=== PATIENT | male | born 1935 | race Asian ===

== ENCOUNTER 2016-11-28 13:59 | Inpatient (IN) | payer OTHER, MEDICARE ==
--- NOTE | 2016-11-28 15:29 | CON.CARD ---
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 He reports medication and diet compliance. - History Source History Provided By: Patient Limitations to Obtaining History: No Limitations - Past Medical History Cardio/Vascular: Yes: AFIB, CHF, HTN - Alcohol/Substance Use Hx Alcohol Use: No - Smoking History Smoking history: Never smoked Have you smoked in the past 12 months: No If you are a former smoker, when did you quit?: 40YRS Home Medications - Allergies Allergies/Adverse Reactions: Allergies Allergy/AdvReac Type Severity Reaction Status Date / Time No Known Allergies Allergy Verified 11/28/16 14:07 - Home Medications Home Medications: Ambulatory Orders Metformin HCl [Metformin HCl ER] 500 mg PO DAILY 11/07/11 Aspirin 81 mg PO 12/12/12 Atorvastatin Calcium [Lipitor] 10 mg PO DAILY 12/12/12 Metoprolol Tartrate [Lopressor -] 50 mg PO BID 12/12/12 Polyethylene Glycol 3350 [Miralax 255 gm Btl] 17 gm PO DAILY 12/19/12 Ranitidine [Zantac -] 150 mg PO DAILY #0 tablet 12/20/12 Review of Systems - Review of Systems Cardiovascular: reports: Edema, Shortness of Breath Respiratory: reports: Orthopnea Vital Signs: Vital Signs Temperature 97.5 F L 11/28/16 14:04 Pulse Rate 73 11/28/16 14:04 Respiratory Rate 18 11/28/16 14:04 Blood Pressure 120/80 11/28/16 14:04 O2 Sat by Pulse Oximetry (%) 98 11/28/16 14:04 Constitutional: Yes: No Distress, Calm Neck: Yes: Supple Respiratory: Yes: Regular, Diminished Gastrointestinal: Yes: Normal Bowel Sounds, Soft Cardiovascular: Yes: Pulse Irregular JVD: No Carotid Bruit: No Heart Sounds: Yes: S1, S2 Murmur: Yes: Systolic Murmur, Grade 2 Edema: Yes Edema: LLE: 2+, RLE: 2+ - Other Data Afib with nonspec T wave changes Echo: Report Reviewed Ejection Fraction %: LVEF > or = 40 % Imaging - Results Chest X-ray: Pending Problem List - Problems (1) Acute on chronic diastolic (congestive) heart failure Code(s): I50.33 - ACUTE ON CHRONIC DIASTOLIC (CONGESTIVE) HEART FAILURE (2) Persistent atrial fibrillation Code(s): I48.1 - PERSISTENT ATRIAL FIBRILLATION (3) Hypertensive cardiomyopathy Code(s): I11.9 - HYPERTENSIVE HEART DISEASE WITHOUT HEART FAILURE I43 - CARDIOMYOPATHY IN DISEASES CLASSIFIED ELSEWHERE Qualifiers: Heart failure presence: with heart failure Qualified Code(s): I11.0 - Hypertensive heart disease with heart failure; I43 - Cardiomyopathy in diseases classified elsewhere (4) Hyperlipidemia Code(s): E78.5 - HYPERLIPIDEMIA, UNSPECIFIED Qualifiers: Hyperlipidemia type: pure hypercholesterolemia Qualified Code(s): E78.00 - Pure hypercholesterolemia, unspecified; E78.0 - Pure hypercholesterolemia (5) Chronic kidney disease (CKD) Code(s): N18.9 - CHRONIC KIDNEY DISEASE, UNSPECIFIED (6) Moderate to severe mitral regurgitation Code(s): I34.0 - NONRHEUMATIC MITRAL (VALVE) INSUFFICIENCY (7) Moderate aortic regurgitation Code(s): I35.1 - NONRHEUMATIC AORTIC (VALVE) INSUFFICIENCY Assessment/Plan 06/04/2015 Mod cLVH with preserved LV fxn, mod LAE, mod-severe MR, AR 1. Acute on chronic diastolic failure with underlying mod-severe MR, AR 2. CAD, angina pectoris 3. Persistent afib [id number] on NOAC 4. HTN/HCVD 5. Type 2 DM 6. Hyperlipidemia 7. CKD P:1. Initiate IV diuresis and Aldactone 25 qd after review of labs with monitor diuretic response, renal fxn and electrolytes 2. Continue Diovan 80 qd, Xarelto 20 qd, Lopressor 50 bid, Lipitor 10 qd 3. Echocardiogram to assess ventricular and valve fxn 4. Thank you for consultative opportunity
[2016-11-28] MEDS ORDERED: ASPIRIN 81 MG CHEWABLE TABLETS PO ONE (16:03)
[2016-11-28] MEDS ORDERED: ASPIRIN 81 MG CHEWABLE TABLETS ONE (16:11)
--- NOTE | 2016-11-28 16:23 | PDOC ---
History of Present Illness <Billie Nettles - Last Filed: 11/28/16 16:18> - History of Present Illness Initial Comments: 11/28/16 17:48 Patient is an 81 year old male with significant medical hx of CAD, CHF, AFib ( on Eliquis) HTN, HLD, DM, and CKD who is presenting to the ED with one week of progressive exertional dyspnea and lower extremity edema. Patient denies any chest pain, orthopnea, fever, chills, cough, lightheadedness, weakness, or dizziness. Today the patient saw his PMD in the office who referred him to the ED for admission for concern of worsening heart failure. PMD: Meghan Bishop <Yulissa Plummer - Last Filed: 11/28/16 17:53> - General Chief Complaint: Edema Stated Complaint: PCP SENT FOR ADMIN Past History - Past Medical History Anemia: No Asthma: No Cancer: No Cardiac Disorders: No CVA: No COPD: No CHF: No Dementia: No Diabetes: Yes (NIDDM) GI Disorders: Yes (HEARTBURN) Disorders: No HTN: Yes Hypercholesterolemia: Yes Liver Disease: No Seizures: No Thyroid Disease: No - Surgical History Abdominal Surgery: No Appendectomy: No Cardiac Surgery: No Cholecystectomy: No Lung Surgery: No Neurologic Surgery: No Orthopedic Surgery: No - Psycho/Social/Smoking Cessation Hx Suicidal Ideation: No Smoking History: Never smoked Have you smoked in the past 12 months: No If you are a former smoker, when did you quit?: 40YRS Information on smoking cessation initiated: No Hx Alcohol Use: No Drug/Substance Use Hx: No Substance Use Type: None Hx Substance Use Treatment: No <Billie Nettles - Last Filed: 11/28/16 16:18> <Yulissa Plummer - Last Filed: 11/28/16 17:53> - Past Medical History Allergies/Adverse Reactions: Allergies Allergy/AdvReac Type Severity Reaction Status Date / Time No Known Allergies Allergy Verified 11/28/16 14:07 Home Medications: Ambulatory Orders Metformin HCl [Metformin HCl ER] 500 mg PO DAILY 11/07/11 Aspirin 81 mg PO 12/12/12 Atorvastatin Calcium [Lipitor] 10 mg PO DAILY 12/12/12 Metoprolol Tartrate [Lopressor -] 50 mg PO BID 12/12/12 Polyethylene Glycol 3350 [Miralax 255 gm Btl] 17 gm PO DAILY 12/19/12 Ranitidine [Zantac -] 150 mg PO DAILY #0 tablet 12/20/12 Review of Systems - Review of Systems Comments:: 11/28/16 17:50 GENERAL/CONSTITUTIONAL: No fever or chills. No weakness. HEAD, EYES, EARS, NOSE AND THROAT: No change in vision. No ear pain or discharge. No sore throat. CARDIOVASCULAR: Progressive dyspnea on exertion. Lower extremity edema. No chest pain. RESPIRATORY: No cough, wheezing, or hemoptysis. GASTROINTESTINAL: No nausea, vomiting, diarrhea or constipation. GENITOURINARY: No dysuria, frequency, or change in urination. MUSCULOSKELETAL: No joint or muscle pain. No neck or back pain. ENDOCRINE: No increased thirst. No abnormal weight change. SKIN: No rash NEUROLOGIC: No headache, vertigo, loss of consciousness, or change in strength/ sensation. <Yulissa Plummer - Last Filed: 11/28/16 17:53> *Physical Exam - Vital Signs Last Vital Signs Temp Pulse Resp BP Pulse Ox 97.5 F L 73 18 120/80 98 11/28/16 14:04 11/28/16 14:04 11/28/16 14:04 11/28/16 14:04 11/28/16 14:04 <Billie Nettles - Last Filed: 11/28/16 16:18> - Vital Signs Last Vital Signs Temp Pulse Resp BP Pulse Ox 97.5 F L 73 18 120/80 98 11/28/16 14:04 11/28/16 14:04 11/28/16 14:04 11/28/16 14:04 11/28/16 14:04 - Physical Exam Comments: 11/28/16 17:52 GENERAL: Awake, alert, and fully oriented, in no acute distress HEAD: No signs of trauma EYES: PERRLA, EOMI, sclera anicteric, conjunctiva clear ENT: Auricles normal inspection, hearing grossly normal, nares patent, oropharynx clear without exudates. Moist mucosa NECK: Normal ROM, supple, no lymphadenopathy, JVD, or masses LUNGS: Breath sounds equal, clear to auscultation bilaterally. No wheezes, and no crackles HEART: Regular rate and rhythm, normal S1 and S2, no murmurs, rubs or gallops ABDOMEN: Soft, nontender, normoactive bowel sounds. No guarding, no rebound. No masses EXTREMITIES: 3+ pitting edema lower extremities bilaterally. Normal range of motion. No clubbing or cyanosis. No cords, erythema, or tenderness NEUROLOGICAL: Cranial nerves II through XII grossly intact. Normal speech, normal gait SKIN: Warm, Dry, normal turgor, no rashes or lesions noted. HEMATOLOGIC/LYMPHATIC: No anemia, easy bleeding, or history of blood clots. ALLERGIC/IMMUNOLOGIC: No hives or skin allergy. <Yulissa Plummer - Last Filed: 11/28/16 17:53> Heart Score/ECG Review #1 11/28/16 17:52 Atrial fibrillation at 70 bpm Abnormal ECG <Yulissa Plummer - Last Filed: 11/28/16 17:53> ED Treatment Course - RADIOLOGY Radiology Studies Ordered: Category Date Time Status CHEST PA & LAT [RAD] Stat Radiology 11/28/16 16:03 Ordered <Billie Nettles - Last Filed: 11/28/16 16:18> - LABORATORY CBC & Chemistry Diagram: 11/28/16 16:36 11/28/16 16:36 - Medications Given in the ED: ED Medications Discontinued Medications Generic Name Dose Route Start Last Admin Trade Name Freq PRN Reason Stop Dose Admin Aspirin 162 mg 11/28/16 16:03 11/28/16 16:37 Asa - PO 11/28/16 16:04 162 mg ONCE ONE Administration <Yulissa Plummer - Last Filed: 11/28/16 17:53> Medical Decision Making - Medical Decision Making 11/28/16 16:18 81 yo M with h/o CAD, CHF, afib, HTN HLD, DM and CKD here wtih c/o peripheral edema, and exertional dyspnea, no cp . no orthopnea. pt is currently on eliquis . no f/c . on exam bilat leg edema, lungs clear bilaterally, heart regular no m/r/g. differential: cHF, worseing renal failure , mi, hypothyroid. plan ekg labs cxr cardiology consult. will admit to telemetry. d/w dr. Hart, and Dr. Ryan cardiology who will see pt in Ed. <Billie Nettles - Last Filed: 11/28/16 16:18> *DC/Admit/Observation/Transfer - Discharge Dispostion Admit: Yes <Billie Nettles - Last Filed: 11/28/16 16:18> - Attestations Scribe Attestion: 11/28/16 17:53 Documentation prepared by Yulissa Plummer, acting as medical office representative for Billie Nettles MD. <Yulissa Plummer - Last Filed: 11/28/16 17:53> Diagnosis at time of Disposition: CHF (congestive heart failure) Qualifiers: Congestive heart failure type: combined Congestive heart failure chronicity: acute on chronic Qualified Code(s): I50.43 - Acute on chronic combined systolic (congestive) and diastolic (congestive) heart failure Edema Qualifiers: Edema type: generalized Qualified Code(s): R60.1 - Generalized edema
[2016-11-28 17:01] LABS: BASOPHIL 0.8 % (0-2.0); EOSINOPHIL 1.6 % (0-4.5); MCHC 31.4 g/dl (32.0-35.9); MEAN CELL VOLUME 73.3 fl (80-96); MEAN PLT VOLUME 9.4 fl (7.5-11.1); NEUTROPHILS 70.4 % (42.8-82.8); PLATELET COUNT 168 K/MM3 (134-434); RDW 16.9 % (11.9-15.9); WHITE BLOOD COUNT 6.9 K/mm3 (4.0-10.0)
[2016-11-28 17:18] LABS: ALBUMIN 4.2 g/dl (3.4-5.0); CREATININE 1.3 mg/dL (0.7-1.3)
[2016-11-28 17:19] LABS: BILIRUBIN,TOTAL 1.7 mg/dL (0.2-1.0); TOT PROT 6.8 g/dl (6.4-8.2)
[2016-11-28 18:06] LABS: TROPONIN I 0.04 ng/ml (0.00-0.05)
[2016-11-29] MEDS ORDERED: METOPROLOL TARTRATE 50 MG TABLET (FP) ONE (10:12)
[2016-11-29] MEDS ORDERED: VALSARTAN 80 MG TABLET (UD) ONE (10:12)
[2016-11-29] MEDS ORDERED: FUROSEMIDE 40 MG/4 ML INJECTABLE VIAL ONE (10:13)
[2016-11-29] MEDS ORDERED: SPIRONOLACTONE 25 MG TABLET (FP) ONE (10:13)
[2016-11-29] MEDS ORDERED: FUROSEMIDE 40 MG/4 ML INJECTABLE VIAL IVPB ONE (10:15)
[2016-11-29] MEDS: VALSARTAN 80 MG TABLET (UD) PO SCH (10:20)
[2016-11-29] MEDS: SPIRONOLACTONE 25 MG TABLET (FP) PO SCH (10:20)
[2016-11-29] MEDS: METOPROLOL TARTRATE 50 MG TABLET (FP) PO SCH ×2 (10:20→21:18)
[2016-11-29] MEDS: RIVAROXABAN 20 MG TABLET PO SCH (11:15)
--- NOTE | 2016-11-29 13:09 | HP ---
Admitting History and Physical - Primary Care Physician PCP: Riri Bishop - Admission Chief Complaint: Worsening LE swelling and SOB History of Present Illness: 81 yrs old male multiple Co-morbidities including HTN, T2DM, Persistent Afib on NOAC, controlled, Chronic HFpEF last EF > 40%, Class C NYHA grade 2-3, Moderate to sever AR and MR, present with gradually worsening LE swelling, SOB , PND and orthopnea,over few days patient is compliant with meds and diet,in the Ed evaluted by Cardiology consult, patient has History Source: Patient Limitations to Obtaining History: No Limitations - Past Medical History Cardiovascular: Yes: AFIB, CHF, HTN - Smoking History Smoking history: Never smoked Have you smoked in the past 12 months: No If you are a former smoker, when did you quit?: 40YRS - Alcohol/Substance Use Hx Alcohol Use: No - Social History ADL: Independent Home Medications - Allergies Allergies/Adverse Reactions: Allergies Allergy/AdvReac Type Severity Reaction Status Date / Time No Known Allergies Allergy Verified 11/28/16 14:07 - Home Medications Home Medications: Ambulatory Orders Atorvastatin Ca [Lipitor] 10 mg PO HS 11/28/16 Metformin HCl 500 mg PO DAILY 11/28/16 Metoprolol Tartrate 50 mg PO BID 11/28/16 Rivaroxaban [Xarelto -] 20 mg PO DAILY 11/28/16 Spironolactone 25 mg PO DAILY 11/28/16 Valsartan 80 mg PO DAILY 11/28/16 Atorvastatin Ca [Lipitor] 10 mg PO HS tablet 11/30/16 Furosemide [Lasix -] 20 mg PO DAILY tablet 11/30/16 Metoprolol Tartrate [Lopressor -] 50 mg PO BID tablet 11/30/16 Rivaroxaban [Xarelto -] 20 mg PO DAILY tablet 11/30/16 Spironolactone [Aldactone -] 25 mg PO DAILY #0 tablet 11/30/16 Valsartan [Diovan] 80 mg PO DAILY tablet 11/30/16 Family Disease History - Family Disease History Family Disease History: Heart Disease: Father, Mother Review of Systems - Review of Systems Constitutional: reports: Diaphoresis, Lethargy HENT: reports: No Symptoms. denies: Difficult Swallowing, Ear Discharge Neck: reports: No Symptoms. denies: Lumps, Pain on Movement Cardiovascular: reports: Edema, Palpitations, Shortness of Breath Respiratory: reports: Orthopnea, PND Gastrointestinal: reports: No Symptoms Genitourinary: reports: No Symptoms Integumentary: reports: No Symptoms Neurological: reports: No Symptoms Endocrine: reports: No Symptoms Hematology/Lymphatic: reports: No Symptoms Psychiatric: reports: No Symptoms Physical Examination Vital Signs: Vital Signs Temperature 98.2 F 11/29/16 10:18 Pulse Rate 82 11/29/16 10:18 Respiratory Rate 16 11/29/16 10:18 Blood Pressure 124/70 11/29/16 10:18 O2 Sat by Pulse Oximetry (%) 99 11/29/16 10:18 Constitutional: Yes: Well Nourished, No Distress, Calm Eyes: Yes: WNL, Conjunctiva Clear, EOM Intact HENT: Yes: WNL, Atraumatic, Normocephalic Neck: Yes: WNL, Supple, Trachea Midline Cardiovascular: Yes: WNL, Pulse Irregular Respiratory: Yes: Regular, Rales Renal/: No: Anuria, Bladder Distention Musculoskeletal: Yes: WNL. No: Back Pain, Joint Stiffness Extremities: No: Calf Tenderness Edema: LLE: 1+, RLE: 1+ Peripheral Pulses WNL: Yes Neurological: Yes: WNL, Alert, Oriented ...Motor Strength: WNL, LUE, LLE, RUE, RLE Labs: CBC, BMP 11/28/16 16:36 11/28/16 16:36 Imaging - Results X-ray: Report Reviewed (Pulmonary congestion) EKG: Image Reviewed Problem List - Problems (1) Acute on chronic diastolic (congestive) heart failure Code(s): I50.33 - ACUTE ON CHRONIC DIASTOLIC (CONGESTIVE) HEART FAILURE (2) Hypertensive cardiomyopathy Code(s): I11.9 - HYPERTENSIVE HEART DISEASE WITHOUT HEART FAILURE I43 - CARDIOMYOPATHY IN DISEASES CLASSIFIED ELSEWHERE Qualifiers: Heart failure presence: with heart failure Qualified Code(s): I11.0 - Hypertensive heart disease with heart failure; I43 - Cardiomyopathy in diseases classified elsewhere (3) Moderate aortic regurgitation Code(s): I35.1 - NONRHEUMATIC AORTIC (VALVE) INSUFFICIENCY (4) Moderate to severe mitral regurgitation Code(s): I34.0 - NONRHEUMATIC MITRAL (VALVE) INSUFFICIENCY (5) Hyperlipidemia Code(s): E78.5 - HYPERLIPIDEMIA, UNSPECIFIED Qualifiers: Hyperlipidemia type: pure hypercholesterolemia Qualified Code(s): E78.00 - Pure hypercholesterolemia, unspecified; E78.0 - Pure hypercholesterolemia (6) Persistent atrial fibrillation Code(s): I48.1 - PERSISTENT ATRIAL FIBRILLATION
--- NOTE | 2016-11-29 14:04 | PN ---
Progress Note, Physician Chief Complaint: Seen in ER hold Not in distress History of Present Illness: Patient was seen and examined. Awake and alert. Chart was reviewed Denies chest pain or palpitations Less SOB today - Current Medication List Current Medications: Active Medications Atorvastatin Calcium (Lipitor -) 10 mg PO HS [facility] Furosemide (Lasix Injection -) 40 mg IVPUSH BID@0600,1400 [facility] Insulin Aspart (Novolog Vial Sliding Scale -) 1 vial SQ TIDAC [facility] PRN Reason: Protocol Metoprolol Tartrate (Lopressor -) 50 mg PO BID [facility] Last Admin: 11/29/16 10:20 Dose: 50 mg Rivaroxaban (Xarelto -) 20 mg PO DAILY [facility] Last Admin: 11/29/16 11:15 Dose: 20 mg Spironolactone (Aldactone -) 25 mg PO DAILY [facility] Last Admin: 11/29/16 10:20 Dose: 25 mg Valsartan (Diovan -) 80 mg PO DAILY [facility] Last Admin: 11/29/16 10:20 Dose: 80 mg - Objective Vital Signs: Vital Signs Temperature 98.2 F 11/29/16 10:18 Pulse Rate 82 11/29/16 10:18 Respiratory Rate 16 11/29/16 10:18 Blood Pressure 124/70 11/29/16 10:18 O2 Sat by Pulse Oximetry (%) 99 11/29/16 10:18 Neck: Yes: Supple Cardiovascular: Yes: Regular Rate and Rhythm, Murmur (Soft SM), S1, S2 Respiratory: Yes: Diminished Gastrointestinal: Yes: Normal Bowel Sounds, Soft, Abdomen, Obese. No: Tenderness Edema: Yes Edema: LLE: 1+, RLE: 1+ Labs: CBC, BMP 11/28/16 16:36 11/28/16 16:36 Problem List - Problems (1) Acute on chronic diastolic (congestive) heart failure Code(s): I50.33 - ACUTE ON CHRONIC DIASTOLIC (CONGESTIVE) HEART FAILURE (2) Chronic kidney disease (CKD) Code(s): N18.9 - CHRONIC KIDNEY DISEASE, UNSPECIFIED (3) Hyperlipidemia Code(s): E78.5 - HYPERLIPIDEMIA, UNSPECIFIED Qualifiers: Hyperlipidemia type: pure hypercholesterolemia Qualified Code(s): E78.00 - Pure hypercholesterolemia, unspecified; E78.0 - Pure hypercholesterolemia (4) Hypertensive cardiomyopathy Code(s): I11.9 - HYPERTENSIVE HEART DISEASE WITHOUT HEART FAILURE I43 - CARDIOMYOPATHY IN DISEASES CLASSIFIED ELSEWHERE Qualifiers: Heart failure presence: with heart failure Qualified Code(s): I11.0 - Hypertensive heart disease with heart failure; I43 - Cardiomyopathy in diseases classified elsewhere (5) Moderate aortic regurgitation Code(s): I35.1 - NONRHEUMATIC AORTIC (VALVE) INSUFFICIENCY (6) Moderate to severe mitral regurgitation Code(s): I34.0 - NONRHEUMATIC MITRAL (VALVE) INSUFFICIENCY (7) Persistent atrial fibrillation Code(s): I48.1 - PERSISTENT ATRIAL FIBRILLATION Assessment/Plan 1. Acute on chronic diastolic failure with underlying mod-severe MR and AR 2. CAD, angina pectoris 3. Persistent atrial fibrillation [id number] on NOAC 4. HTN/HCVD 5. Type 2 DM 6. Hyperlipidemia 7. CKD PLAN: 1. Continue IV diuresis (Furosemide) and Aldactone 25 mg qd and monitor, renal function and electrolytes 2. Continue Diovan 80 mg qd, Xarelto 20 mg qd, Lopressor 50 mg bid and Lipitor 10 mg qd 3. Echocardiography to assess LV and valvular function Discussed case with his by bedside Further plans are to follow José Luis Thakkar MD
[2016-11-29] MEDS: FUROSEMIDE 40 MG/4 ML INJECTABLE VIAL IVPUSH SCH (15:05)
[2016-11-29 16:43] VITALS: BMI 31.4
[2016-11-29] MEDS: INSULIN SLIDING SCALE (NOVOLOG) 1 VIAL SQ SCH (17:00)
--- NOTE | 2016-11-29 17:13 | EKG ---
Test Reason : Blood Pressure : / mmHG Vent. Rate : 070 BPM Atrial Rate : 234 BPM P-R Int : 000 ms QRS Dur : 086 ms QT Int : 408 ms P-R-T Axes : 000 062 022 degrees QTc Int : 440 ms ATRIAL FIBRILLATION ABNORMAL ECG NO PREVIOUS ECGS AVAILABLE Confirmed by BHARATHI GALVAN MD ([id number]) on 11/29/2016 5:12:42 PM Referred By: Confirmed By:BHARATHI GALVAN MD
[2016-11-29] MEDS ORDERED: ATORVASTATIN CA 10 MG TABLET (FP) PO SCH (22:00)
[2016-11-30] MEDS: FUROSEMIDE 40 MG/4 ML INJECTABLE VIAL IVPUSH SCH (05:41)
[2016-11-30] MEDS: INSULIN SLIDING SCALE (NOVOLOG) 1 VIAL SQ SCH (06:14)
[2016-11-30 06:46] LABS: BASOPHIL 1.5 % (0-2.0); EOSINOPHIL 1.6 % (0-4.5); MCH 23.2 pg (25.7-33.7); MCHC 31.5 g/dl (32.0-35.9); MEAN CELL VOLUME 73.6 fl (80-96); MEAN PLT VOLUME 8.8 fl (7.5-11.1); NEUTROPHILS 66.1 % (42.8-82.8); PLATELET COUNT 119 K/MM3 (134-434); RDW 16.5 % (11.9-15.9); WHITE BLOOD COUNT 6.2 K/mm3 (4.0-10.0)
[2016-11-30 07:19] LABS: ALBUMIN 4.1 g/dl (3.4-5.0); CALCIUM 8.6 mg/dL (8.5-10.1); COCKROFT - GAULT 52.53; CREATININE 1.5 mg/dL (0.7-1.3); MAGNESIUM 2.5 mg/dL (1.8-2.4)
[2016-11-30 07:20] LABS: BILIRUBIN,TOTAL 2.3 mg/dL (0.2-1.0); TOT PROT 6.6 g/dl (6.4-8.2)
[2016-11-30 08:09] LABS: BILIRUBIN,DIRECT 0.7 mg/dL (0.0-0.2)
--- NOTE | 2016-11-30 09:00 | PN ---
Progress Note, Physician Chief Complaint: Less SOB, no C/O PND History of Present Illness: 81 yrs old man H/O MR , combined HF , CKD, T2DM,Afib present with CHF exacerbation, improving on Diuretics - Current Medication List Current Medications: Active Medications Atorvastatin Calcium (Lipitor -) 10 mg PO HS [facility] Last Admin: 11/29/16 21:18 Dose: 10 mg Furosemide (Lasix Injection -) 40 mg IVPUSH BID@0600,1400 [facility] Last Admin: 11/30/16 05:41 Dose: 40 mg Insulin Aspart (Novolog Vial Sliding Scale -) 1 vial SQ TIDAC [facility] PRN Reason: Protocol Last Admin: 11/30/16 06:14 Dose: Not Given Metoprolol Tartrate (Lopressor -) 50 mg PO BID [facility] Last Admin: 11/29/16 21:18 Dose: 50 mg Rivaroxaban (Xarelto -) 20 mg PO DAILY [facility] Last Admin: 11/29/16 11:15 Dose: 20 mg Spironolactone (Aldactone -) 25 mg PO DAILY [facility] Last Admin: 11/29/16 10:20 Dose: 25 mg Valsartan (Diovan -) 80 mg PO DAILY [facility] Last Admin: 11/29/16 10:20 Dose: 80 mg - Objective Vital Signs: Vital Signs Temperature 98.2 F 11/30/16 06:00 Pulse Rate 75 11/30/16 06:00 Respiratory Rate 18 11/30/16 06:00 Blood Pressure 103/70 11/30/16 06:00 O2 Sat by Pulse Oximetry (%) 95 11/29/16 21:00 Constitutional: Yes: Well Nourished, No Distress, Calm Eyes: Yes: WNL, Conjunctiva Clear, EOM Intact HENT: Yes: WNL, Atraumatic, Normocephalic Neck: Yes: WNL, Supple, Trachea Midline Cardiovascular: Yes: WNL, Pulse Irregular, JVD, Gallop, Murmur, S1, S2 Respiratory: Yes: WNL, Regular, Rales Gastrointestinal: Yes: WNL, Normal Bowel Sounds ...Rectal Exam: Yes: Deferred Genitourinary: Yes: WNL. No: Anuria, Bladder Distention Musculoskeletal: Yes: WNL. No: Back Pain, Joint Stiffness Extremities: No: Calf Tenderness, Deformity Edema: Yes Edema: LLE: 1+, RLE: 1+ Peripheral Pulses WNL: Yes Peripheral Pulses: Left Doralis Pedis: 1+, Right Dorsalis Pedis: 1+ Integumentary: Yes: WNL, Bruising. No: Erythema ...Motor Strength: WNL, LUE, LLE, RUE, RLE Labs: CBC, BMP 11/30/16 05:35 11/30/16 05:35 CBC, BMP 11/30/16 05:35 11/30/16 05:35 - ....Imaging X-ray: Image Reviewed (pulmonary Congestion, Cardiolmegaly) Other: Image Reviewed (ECHO: Normal LVEF Moderare to Sever MR Moderate AR Mild RVSP high Pulmonary HTN Mild MT) Problem List - Problems (1) Acute on chronic diastolic (congestive) heart failure Code(s): I50.33 - ACUTE ON CHRONIC DIASTOLIC (CONGESTIVE) HEART FAILURE (2) Hypertensive cardiomyopathy Assessment/Plan: Optimization of BP control on Valsatan and Metoprolol Code(s): I11.9 - HYPERTENSIVE HEART DISEASE WITHOUT HEART FAILURE I43 - CARDIOMYOPATHY IN DISEASES CLASSIFIED ELSEWHERE Qualifiers: Heart failure presence: with heart failure Qualified Code(s): I11.0 - Hypertensive heart disease with heart failure; I43 - Cardiomyopathy in diseases classified elsewhere (3) Moderate aortic regurgitation Assessment/Plan: Non Rhematic , on AC and Diuretics Code(s): I35.1 - NONRHEUMATIC AORTIC (VALVE) INSUFFICIENCY (4) Moderate to severe mitral regurgitation Assessment/Plan: Cont Current management Code(s): I34.0 - NONRHEUMATIC MITRAL (VALVE) INSUFFICIENCY (5) Hyperlipidemia Assessment/Plan: On Statin Code(s): E78.5 - HYPERLIPIDEMIA, UNSPECIFIED Qualifiers: Hyperlipidemia type: pure hypercholesterolemia Qualified Code(s): E78.00 - Pure hypercholesterolemia, unspecified; E78.0 - Pure hypercholesterolemia (6) Persistent atrial fibrillation Assessment/Plan: Rate controlled with B Blockers on Xarelto Code(s): I48.1 - PERSISTENT ATRIAL FIBRILLATION (7) CKD (chronic kidney disease) stage 3, GFR 30-59 ml/min Assessment/Plan: Mild worsening of function on IV Diuretics, please observe. Code(s): N18.3 - CHRONIC KIDNEY DISEASE, STAGE 3 (MODERATE) (8) Heart failure, diastolic, with acute decompensation Assessment/Plan: Optimization of CHF treatment, Diuresis, low salt diet, B Blockers on Valsartan and aldactone F/U Cardiology recommendations. Code(s): I50.33 - ACUTE ON CHRONIC DIASTOLIC (CONGESTIVE) HEART FAILURE (9) T2DM (type 2 diabetes mellitus) Assessment/Plan: Off PO meds on Correction dose insulin. Code(s): E11.9 - TYPE 2 DIABETES MELLITUS WITHOUT COMPLICATIONS Qualifiers: Diabetes mellitus complication detail: with diabetic retinopathy
[2016-11-30] MEDS: METOPROLOL TARTRATE 50 MG TABLET (FP) PO SCH (09:57)
[2016-11-30] MEDS: RIVAROXABAN 20 MG TABLET PO SCH (09:57)
[2016-11-30] MEDS: VALSARTAN 80 MG TABLET (UD) PO SCH (09:57)
[2016-11-30] MEDS: SPIRONOLACTONE 25 MG TABLET (FP) PO SCH (09:57)
[2016-11-30 10:00] VITALS: BP 108/52; PULSE 78; TEMP 98.3
--- NOTE | 2016-11-30 10:03 | PN ---
Progress Note, Physician History of Present Illness: Dyspnea on exertion, bilateral lower extremity edema, orthopnea, fatigue resolved with IV diuresis. - Current Medication List Current Medications: Active Medications Atorvastatin Calcium (Lipitor -) 10 mg PO HS [facility] Last Admin: 11/29/16 21:18 Dose: 10 mg Furosemide (Lasix Injection -) 40 mg IVPUSH BID@0600,1400 [facility] Last Admin: 11/30/16 05:41 Dose: 40 mg Insulin Aspart (Novolog Vial Sliding Scale -) 1 vial SQ TIDAC [facility] PRN Reason: Protocol Last Admin: 11/30/16 06:14 Dose: Not Given Metoprolol Tartrate (Lopressor -) 50 mg PO BID [facility] Last Admin: 11/30/16 09:57 Dose: 50 mg Rivaroxaban (Xarelto -) 20 mg PO DAILY [facility] Last Admin: 11/30/16 09:57 Dose: 20 mg Spironolactone (Aldactone -) 25 mg PO DAILY [facility] Last Admin: 11/30/16 09:57 Dose: 25 mg Valsartan (Diovan -) 80 mg PO DAILY [facility] Last Admin: 11/30/16 09:57 Dose: 80 mg - Objective Vital Signs: Vital Signs Temperature 98.3 F 11/30/16 09:59 Pulse Rate 78 11/30/16 09:59 Respiratory Rate 18 11/30/16 09:59 Blood Pressure 108/52 11/30/16 09:59 O2 Sat by Pulse Oximetry (%) 95 11/29/16 21:00 Constitutional: Yes: No Distress, Calm Neck: Yes: Supple Cardiovascular: Yes: Regular Rate and Rhythm, Murmur (2/6 SM) Respiratory: Yes: Regular, Diminished Gastrointestinal: Yes: Normal Bowel Sounds, Soft Edema: No Labs: CBC, BMP 11/30/16 05:35 11/30/16 05:35 Problem List - Problems (1) Acute on chronic diastolic (congestive) heart failure Code(s): I50.33 - ACUTE ON CHRONIC DIASTOLIC (CONGESTIVE) HEART FAILURE (2) Persistent atrial fibrillation Code(s): I48.1 - PERSISTENT ATRIAL FIBRILLATION (3) Hypertensive cardiomyopathy Code(s): I11.9 - HYPERTENSIVE HEART DISEASE WITHOUT HEART FAILURE I43 - CARDIOMYOPATHY IN DISEASES CLASSIFIED ELSEWHERE Qualifiers: Heart failure presence: with heart failure Qualified Code(s): I11.0 - Hypertensive heart disease with heart failure; I43 - Cardiomyopathy in diseases classified elsewhere (4) Hyperlipidemia Code(s): E78.5 - HYPERLIPIDEMIA, UNSPECIFIED Qualifiers: Hyperlipidemia type: pure hypercholesterolemia Qualified Code(s): E78.00 - Pure hypercholesterolemia, unspecified; E78.0 - Pure hypercholesterolemia (5) Chronic kidney disease (CKD) Code(s): N18.9 - CHRONIC KIDNEY DISEASE, UNSPECIFIED (6) Moderate to severe mitral regurgitation Code(s): I34.0 - NONRHEUMATIC MITRAL (VALVE) INSUFFICIENCY (7) Moderate aortic regurgitation Code(s): I35.1 - NONRHEUMATIC AORTIC (VALVE) INSUFFICIENCY Assessment/Plan 11/29/2016 Echo: Mod cLVH, normal LV fxn, severe LAE, mild ARABELLA, mod-severe MR, mod TR, RVSP>60, mod AR, mild OR, small effusions 1. Acute on chronic diastolic failure with underlying mod-severe MR 2. CAD, angina pectoris 3. Persistent atrial fibrillation [id number] on NOAC 4. HTN/HCVD 5. Type 2 DM 6. Hyperlipidemia 7. Acute on CKD due to diuresis PLAN: 1. Resume Furosemide 20 qd and Aldactone 25 mg qd (home doses) and monitor, renal function and electrolytes 2. Continue Diovan 80 mg qd, Xarelto 20 mg qd, Lopressor 50 mg bid and Lipitor 10 mg qd 3. D/c planning with f/u with Dr. Figueroa, has appt for next week
--- NOTE | 2016-11-30 12:27 | DS ---
Physical Examination Vital Signs: Vital Signs Temperature 98.3 F 11/30/16 09:59 Pulse Rate 78 11/30/16 09:59 Respiratory Rate 18 11/30/16 09:59 Blood Pressure 108/52 11/30/16 09:59 O2 Sat by Pulse Oximetry (%) 95 11/29/16 21:00 Findings/Remarks: 81 yrs old man with H/O HTN, T2DM, CKD, Moderate to sever MR, Chronic Afib , combined systolic and diastolic HF present with CHF exacerbation, put on OV Lasix with gradual improvement in symptoms, Patient will F/U with Cardiology and PCP clinic at the time of discharge hemodtnamically stable and asymptomatic. Constitutional: Yes: Well Nourished, No Distress, Calm Eyes: Yes: WNL, Conjunctiva Clear, EOM Intact HENT: Yes: WNL, Atraumatic, Normocephalic Neck: Yes: WNL, Supple, Trachea Midline Cardiovascular: Yes: WNL, Regular Rate and Rhythm, Pulse Irregular Respiratory: Yes: WNL, Regular, CTA Bilaterally Gastrointestinal: Yes: WNL, Normal Bowel Sounds Musculoskeletal: Yes: WNL Extremities: Yes: WNL Edema: No Integumentary: Yes: WNL Neurological: Yes: WNL, Alert, Oriented ...Motor Strength: WNL Psychiatric: Yes: WNL Labs: CBC, BMP 11/30/16 05:35 11/30/16 05:35 Discharge Summary Reason For Visit: CHF Current Active Problems Acute on chronic diastolic (congestive) heart failure (Acute) CHF (congestive heart failure) (Acute) CKD (chronic kidney disease) stage 3, GFR 30-59 ml/min (Acute) Chronic kidney disease (CKD) (Acute) Edema (Acute) Heart failure, diastolic, with acute decompensation (Acute) Hyperlipidemia (Acute) Hypertensive cardiomyopathy (Acute) Moderate aortic regurgitation (Acute) Moderate to severe mitral regurgitation (Acute) Persistent atrial fibrillation (Acute) T2DM (type 2 diabetes mellitus) (Acute) Condition: Stable - Instructions Diet, Activity, Other Instructions: low salt low cholesterol Referrals: Riri Bishop MD [Primary Care Provider] - 1 Week Dimitrios Ritter MD [Staff Physician] - 1 Week Kendall Ryan MD [Staff Physician] - Disposition: HOME - Home Medications Comprehensive Discharge Medication List: Ambulatory Orders Atorvastatin Ca [Lipitor] 10 mg PO HS 11/28/16 Metformin HCl 500 mg PO DAILY 11/28/16 Metoprolol Tartrate 50 mg PO BID 11/28/16 Rivaroxaban [Xarelto -] 20 mg PO DAILY 11/28/16 Spironolactone 25 mg PO DAILY 11/28/16 Valsartan 80 mg PO DAILY 11/28/16 Atorvastatin Ca [Lipitor] 10 mg PO HS tablet 11/30/16 Furosemide [Lasix -] 20 mg PO DAILY tablet 11/30/16 Metoprolol Tartrate [Lopressor -] 50 mg PO BID tablet 11/30/16 Rivaroxaban [Xarelto -] 20 mg PO DAILY tablet 11/30/16 Spironolactone [Aldactone -] 25 mg PO DAILY #0 tablet 11/30/16 Valsartan [Diovan] 80 mg PO DAILY tablet 11/30/16
[2016-12-01] MEDS ORDERED: FUROSEMIDE 20 MG TABLET (FP) PO SCH (10:00)
== END 2016-11-30 13:12 | disposition home or self-care (01) | DRG 291 ==
LOC: JER 13:59 → JERBED 16:24 → J4S 11-29 15:26
PROVIDERS: ADMIT Internal Medicine; ATTEND Internal Medicine
DX: I13.0 Hypertensive heart and chronic kidney disease with heart failure and stage 1 through stage 4 chronic kidney disease, or unspecified chronic kidney disease (principal); I50.33 Acute on chronic diastolic (congestive) heart failure; I48.1 Persistent atrial fibrillation; N17.9 Acute kidney failure, unspecified; I25.10 Atherosclerotic heart disease of native coronary artery without angina pectoris; E11.22 Type 2 diabetes mellitus with diabetic chronic kidney disease; I34.0 Nonrheumatic mitral (valve) insufficiency; Z79.4 Long term (current) use of insulin; E78.5 Hyperlipidemia, unspecified; I35.1 Nonrheumatic aortic (valve) insufficiency; Z79.01 Long term (current) use of anticoagulants; N18.3 Chronic kidney disease, stage 3 (moderate); E11.319 Type 2 diabetes mellitus with unspecified diabetic retinopathy without macular edema
CPT/HCPCS: 36415; 71020-TC; 80053; 80076; 82550; 82553; 83735; 83880; 84484; 85025; 93005; 93010; 93306-TC; 99285-25

== ENCOUNTER 2017-09-03 14:27 | Inpatient (IN) | payer OTHER, MEDICARE ==
[2017-09-03 16:24] LABS: BASO % 0.1 % (0-2.0); HEMOGLOBIN 16.2 GM/dL (11.7-16.9); LYMPH % 3.1 % (8-40); MCH 23.5 pg (25.7-33.7); MCHC 31.9 g/dl (32.0-35.9); MEAN CELL VOLUME 73.6 fl (80-96); MEAN PLT VOLUME 7.7 fl (7.5-11.1); MONO % 4.6 % (3.8-10.2); NEUT % 92.2 % (42.8-82.8); PLATELET COUNT 267 K/MM3 (134-434); RBC 6.92 M/mm3 (4.00-5.60); WHITE BLOOD COUNT 18.2 K/mm3 (4.0-10.0)
--- NOTE | 2017-09-03 17:00 | PDOC ---
History of Present Illness - General Chief Complaint: Pain, Acute Stated Complaint: PCP SENT Time Seen by Provider: 09/03/17 15:26 History Source: Patient Exam Limitations: No Limitations - History of Present Illness Initial Comments: 09/03/17 16:47 Patient is an 81 year old male with significant medical hx of CAD, CHF, AFib ( on Xarelto) HTN, HLD, DM, and CKD who is presenting to the ED with vomiting on monday. Was seen by Dario Hills on Monday, was given Zofran, patient was then able to tolerate food. gave him one Zofran this am, then he attempted to eat rice and cream of wheat. Vomited again Non bilious no blood) Was told by Dr. Bishop to come to ER for evaluation. Is scheduled for cardiac cath on and valve repair on Monday. Patient denies any chest pain, orthopnea, fever, chills, cough, lightheadedness , weakness, or dizziness. Past Medical History: [Denies]. Allergies: No known allergies Medications: Zofran, metoprolol, Atorvastin, Tamsulosin, Allopurinol, Xarelto. Family History: Non-contributory Social History: Denies smoking, alcohol use, or IVDU Vital signs on arrival are [notable for pulse of 105. ] PMD: Meghan Bishop Clinical Research Scientist: Dr. Riojas Review of Systems GENERAL/CONSTITUTIONAL: [No fever or chills. No weakness. No weight change.] HEAD, EYES, EARS, NOSE AND THROAT: [No change in vision. No ear pain or discharge. No sore throat. ] CARDIOVASCULAR: [No chest pain or shortness of breath.] RESPIRATORY: [No cough, wheezing, or hemoptysis.] GASTROINTESTINAL: [No nausea, vomiting, diarrhea or constipation. No rectal bleeding.] GENITOURINARY: [No dysuria, frequency, or change in urination.] MUSCULOSKELETAL: [No joint or muscle swelling or pain. No neck or back pain.] SKIN AND BREASTS: [No rash or easy bruising.] NEUROLOGIC: [No headache, vertigo, loss of consciousness, or loss of sensation.] PSYCHIATRIC: [No depression or anxiety.] ENDOCRINE: [No increased thirst. No abnormal weight change.] HEMATOLOGIC/LYMPHATIC: [No anemia, easy bleeding, or history of blood clots.] ALLERGIC/IMMUNOLOGIC: [No hives or skin allergy. No latex allergy.] Physical Exam: GENERAL: [The patient is awake, alert, and fully oriented, in no acute distress. ] HEAD: [Normal with no signs of trauma.] EYES: [Pupils equal, round and reactive to light, extraocular movements intact, sclera anicteric, conjunctiva clear.] ENT: [Ears normal, nares patent, oropharynx clear without exudates. Moist mucous membranes. No uvula deviation] NECK: [Normal range of motion, supple without lymphadenopathy, JVD, or masses.] LUNGS: [Breath sounds equal, clear to auscultation bilaterally. No wheezes, and no crackles.] HEART: [Tachycardia, + murmur.] ABDOMEN: [Soft, tender left upper quadrant with Hyperactive bowel sounds. No guarding, no rebound. No masses. No bruising or abrasions] MUSCULOSKELETAL: [Normal range of motion, no edema. No clubbing or cyanosis. No cords, erythema, or tenderness. No CVA Tenderness with fist.] NEUROLOGICAL: [Cranial nerves II through XII grossly intact. Normal speech, normal gait.] SKIN: [Warm, Dry, normal turgor, no rashes or lesions noted.] 09/07/17 08:20 Past History - Past Medical History Allergies/Adverse Reactions: Allergies Allergy/AdvReac Type Severity Reaction Status Date / Time apixaban [From Eliquis] Allergy Intermediate Rash Verified 09/03/17 14:40 Home Medications: Ambulatory Orders Atorvastatin Ca [Lipitor] 10 mg PO HS tablet 11/30/16 Furosemide [Lasix -] 20 mg PO DAILY tablet 11/30/16 Metoprolol Tartrate [Lopressor -] 50 mg PO BID tablet 11/30/16 Rivaroxaban [Xarelto -] 20 mg PO DAILY tablet 11/30/16 Spironolactone [Aldactone -] 25 mg PO DAILY #0 tablet 11/30/16 Valsartan [Diovan] 80 mg PO DAILY tablet 11/30/16 Anemia: No Asthma: No Cancer: No Cardiac Disorders: Yes (Atrial Fib) CVA: No COPD: No CHF: Yes Dementia: No Diabetes: Yes (NIDDM) GI Disorders: Yes (HEARTBURN) Disorders: No HTN: Yes Hypercholesterolemia: Yes Liver Disease: No Seizures: No Thyroid Disease: No - Surgical History Abdominal Surgery: Yes (GallBladder removal) Appendectomy: No Cardiac Surgery: No Cholecystectomy: No Lung Surgery: No Neurologic Surgery: No Orthopedic Surgery: No - Suicide/Smoking/Psychosocial Hx Smoking History: Never smoked Have you smoked in the past 12 months: No If you are a former smoker, when did you quit?: 40YRS Information on smoking cessation initiated: No Hx Alcohol Use: No Drug/Substance Use Hx: No Substance Use Type: None Hx Substance Use Treatment: No *Physical Exam - Vital Signs Last Vital Signs Temp Pulse Resp BP Pulse Ox 105 H 19 92/68 95 09/03/17 14:40 09/03/17 14:40 09/03/17 14:40 09/03/17 14:40 ED Treatment Course - LABORATORY CBC & Chemistry Diagram: 09/07/17 05:35 09/07/17 05:35 - ADDITIONAL ORDERS Additional order review: Laboratory Results 09/03/17 09/03/17 16:15 16:15 Sodium Cancelled Potassium Cancelled Chloride Cancelled Carbon Dioxide Cancelled Anion Gap Cancelled BUN Cancelled Creatinine Cancelled Creat Clearance w eGFR Cancelled Random Glucose Cancelled Calcium Cancelled Phosphorus Cancelled Magnesium Cancelled Total Bilirubin Cancelled AST Cancelled ALT Cancelled Alkaline Phosphatase Cancelled Creatine Kinase Cancelled Troponin I Cancelled Total Protein Cancelled Albumin Cancelled Lipase Cancelled 09/03/17 16:15 RBC 6.92 H MCV 73.6 L MCHC 31.9 L RDW 17.0 H MPV 7.7 D Neutrophils % 92.2 H D Lymphocytes % 3.1 L D Monocytes % 4.6 Eosinophils % 0.0 D Basophils % 0.1 - RADIOLOGY Radiology Studies Ordered: Category Date Time Status CHEST PA & LAT [RAD] Stat Radiology 09/03/17 16:22 Taken Medical Decision Making - Medical Decision Making 09/03/17 18:48 A/P: Patient is an 82-year-old male presents with vomiting intermittently for 3 days, was seen by PMD given Zofran and then vomited again which prompted him to come to emergency department. Patient has been afebrile. BP was noted 92/68, reports that BP has been low and his medication has been recently altered. Plan: CBC, CMP, urinalysis, urine cultures,lactic acid, blood cultures, chest x-ray PA lat, EKG. 09/03/17 18:49 Laboratory Results - last 24 hr 09/03/17 09/03/17 09/03/17 16:15 16:15 16:15 WBC 18.2 H D RBC 6.92 H Hgb 16.2 D Hct 51.0 H D MCV 73.6 L MCH 23.5 L MCHC 31.9 L RDW 17.0 H Plt Count 267 D MPV 7.7 D Neutrophils % 92.2 H D Lymphocytes % 3.1 L D Monocytes % 4.6 Eosinophils % 0.0 D Basophils % 0.1 PT with INR 22.60 H INR 2.00 H Sodium Cancelled Potassium Cancelled Chloride Cancelled Carbon Dioxide Cancelled Anion Gap Cancelled BUN Cancelled Creatinine Cancelled Creat Clearance w eGFR Cancelled Random Glucose Cancelled Lactic Acid Calcium Cancelled Phosphorus Magnesium Total Bilirubin Cancelled AST Cancelled ALT Cancelled Alkaline Phosphatase Cancelled Creatine Kinase Cancelled Troponin I Cancelled Total Protein Cancelled Albumin Cancelled Lipase 09/03/17 09/03/17 09/03/17 16:15 17:08 17:55 WBC RBC Hgb Hct MCV MCH MCHC RDW Plt Count MPV Neutrophils % Lymphocytes % Monocytes % Eosinophils % Basophils % PT with INR INR Sodium 132 L Potassium 4.5 D Chloride 82 L D Carbon Dioxide 36 H Anion Gap 14 BUN 74 H D Creatinine 3.9 H D Creat Clearance w eGFR 14.87 Random Glucose 213 H D Lactic Acid 6.7 H* Calcium 9.8 Phosphorus Cancelled Magnesium Cancelled 2.8 H Total Bilirubin 1.5 H D AST 22 ALT 31 D Alkaline Phosphatase 85 D Creatine Kinase Troponin I Total Protein 7.9 Albumin 4.4 Lipase Cancelled 130 09/03/17 18:56 WBC is 18.1 with a left shift, lactic acid of 6.73 L of normal saline ordered, Acute renal failure. Zosyn IV. CT scan of abdomen and pelvis with IV contrast only. EKG with an accelerated junctional rhythm with premature supraventricular complexes and nonspecific ST and T wave abnormality QTc of 461 ventricular rate of 112. I have paged Dr. Bishop and Dr. King, awaiting call back. I am signing this patient out to my colleague: [HÉCTOR Shah] In brief, this patient is being seen in the ED for a chief complaint of: Vomiting for 3 days. I have completed the initial assessment interview note and have ordered: [labs, UA, EKG, chest x-ray, CT of abdomen and pelvis with contrast] I have reviewed the following results: [Labs, EKG, chest x-ray] Pending results are: CT scan Please call the PCP: [Dr. Bishop] Plan for disposition is as follows: [Pending] *DC/Admit/Observation/Transfer Diagnosis at time of Disposition: Abdominal pain, Small bowel obstruction, Pneumatosis intestinalis of small intestine Sepsis Qualifiers: Sepsis type: sepsis due to unspecified organism Qualified Code(s): A41.9 - Sepsis, unspecified organism - Referrals - Patient Instructions - Post Discharge Activity
[2017-09-03 17:13] LABS: PROTHROMBIN TIME (PATIENT) 22.6 SEC (9.98-11.88)
[2017-09-03] MEDS ORDERED: SODIUM CHLORIDE 0.9% 1000 ML INFUS.BAG IV ONE ×4 (17:32→21:27)
[2017-09-03 17:48] LABS: ALBUMIN 4.4 g/dl (3.4-5.0); ANION GAP 14 (8-16); BILIRUBIN,TOTAL 1.5 mg/dL (0.2-1.0); BLOOD UREA NITROGEN 74 mg/dL (7-18); CALCIUM 9.8 mg/dL (8.5-10.1); CHLORIDE 82 mmol/L (98-107); CO2 36 mmol/L (21-32); CREATININE 3.9 mg/dL (0.7-1.3); GLUCOSE,RANDOM 213 mg/dL (74-106); LIPASE 130 U/L (73-393); MAGNESIUM 2.8 mg/dL (1.8-2.4); POTASSIUM 4.5 mmol/L (3.5-5.1); SGOT/AST 22 U/L (15-37); SGPT/ALT 31 U/L (12-78); SODIUM 132 mmol/L (136-145); TOT PROT 7.9 g/dl (6.4-8.2)
[2017-09-03 17:49] LABS: ALK PHOS 85 U/L (45-117)
[2017-09-03] MEDS ORDERED: PIPERACILLIN/TAZOB 3.375 GM/50 ML PRE-DOCKED IVPB ONE (18:12)
[2017-09-03] MEDS ORDERED: PIPERACILLIN/TAZOB 3.375 GM 3.375 GM/50 ML BAG IVPB ONE (18:26)
[2017-09-03] MEDS ORDERED: VANCOMYCIN 1,000 MG in DEXTROSE 5%-WATER - 250 ML IVPB ONE (19:13)
[2017-09-03] MEDS ORDERED: ONDANSETRON 4 MG/2 ML VIAL IVPUSH ONE (19:42)
[2017-09-03] MEDS ORDERED: VANCOMYCIN 1 GRAM (PRE-DOCKED) 1,000 MG/250 ML BAG IVPB ONE (19:43)
[2017-09-03] MEDS ORDERED: ONDANSETRON 4 MG/2 ML VIAL ONE (19:43)
[2017-09-03] MEDS ORDERED: SODIUM CHLORIDE 1,000 ML IV STA (19:56)
--- NOTE | 2017-09-03 20:02 | PDOC ---
*Physical Exam - Vital Signs Last Vital Signs Temp Pulse Resp BP Pulse Ox 98.6 F 93 H 18 119/67 99 09/03/17 18:32 09/03/17 18:32 09/03/17 18:32 09/03/17 18:32 09/03/17 18:32 - Physical Exam General Appearance: Yes: Appropriately Dressed Respiratory/Chest: positive: Normal Breath Sounds Cardiovascular: positive: Tachycardia Gastrointestinal/Abdominal: positive: Normal Bowel Sounds, Decreased BS, Distended Extremity: positive: Normal Capillary Refill, Normal Inspection Integumentary: positive: Normal Color, Dry, Warm Neurologic: positive: Alert, Normal Mood/Affect ED Treatment Course - LABORATORY CBC & Chemistry Diagram: 09/04/17 05:50 09/04/17 05:50 - ADDITIONAL ORDERS Additional order review: Laboratory Results 09/03/17 09/03/17 09/03/17 17:55 17:08 16:15 PT with INR INR Sodium 132 L Potassium 4.5 D Chloride 82 L D Carbon Dioxide 36 H Anion Gap 14 BUN 74 H D Creatinine 3.9 H D Creat Clearance w eGFR 14.87 Random Glucose 213 H D Lactic Acid 6.7 H* Calcium 9.8 Phosphorus 7.0 H Cancelled Magnesium 2.8 H Cancelled Total Bilirubin 1.5 H D AST 22 ALT 31 D Alkaline Phosphatase 85 D Creatine Kinase Troponin I Total Protein 7.9 Albumin 4.4 Lipase 130 Cancelled 09/03/17 09/03/17 16:15 16:15 PT with INR 22.60 H INR 2.00 H Sodium Cancelled Potassium Cancelled Chloride Cancelled Carbon Dioxide Cancelled Anion Gap Cancelled BUN Cancelled Creatinine Cancelled Creat Clearance w eGFR Cancelled Random Glucose Cancelled Lactic Acid Calcium Cancelled Phosphorus Magnesium Total Bilirubin Cancelled AST Cancelled ALT Cancelled Alkaline Phosphatase Cancelled Creatine Kinase Cancelled Troponin I Cancelled Total Protein Cancelled Albumin Cancelled Lipase 09/03/17 16:15 RBC 6.92 H MCV 73.6 L MCHC 31.9 L RDW 17.0 H MPV 7.7 D Neutrophils % 92.2 H D Lymphocytes % 3.1 L D Monocytes % 4.6 Eosinophils % 0.0 D Basophils % 0.1 - Medications Given in the ED: ED Medications Discontinued Medications Generic Name Dose Route Start Last Admin Trade Name Freq PRN Reason Stop Dose Admin Ondansetron HCl 4 mg 09/03/17 19:42 09/03/17 19:51 Zofran Injection IVPUSH 09/03/17 19:43 4 mg ONCE ONE Administration Piperacillin Sod/Tazobactam Sod 3.375 gm 09/03/17 18:12 09/03/17 18:30 Zosyn 3.375gm Ivpb (Pre-Docked) IVPB 09/03/17 18:13 3.375 gm ONCE ONE Administration Sodium Chloride 1,000 ml 09/03/17 17:32 09/03/17 17:39 Normal Saline - IV 09/03/17 17:33 1,000 ml ONCE ONE Administration Sodium Chloride 2,700 ml 09/03/17 18:11 09/03/17 18:31 Normal Saline - IV 09/03/17 18:12 Not Given ONCE ONE Medical Decision Making - Critical Care Time Total Critical Care Time (minutes): 60 Critical Care Statement: The care of this patient involved high complexity decision making to prevent further life threatening deterioration of the patient 's condition and/or to evaluate & treat vital organ system(s) failure or risk of failure. - Medical Decision Making 09/03/17 19:57 patient is hypotensive.Patient is c/o nausea, belching and abdomen noted to be distended. decreased bowel sounds. P: NOrmal saline bolus vanco coverage zofran. patient to be admitted under Dr. Bishop and Dr. Govea service 09/03/17 20:[address] 1100 ml of stomach content drained. Dr. govea aware of patient status. pending OR. 09/03/17 21:08 ICU ACCOUNT AUDITOR Jen aware of patient. advised b/p management. ICU with no beds. patient at this time to the OR> 09/03/17 21:39 P *DC/Admit/Observation/Transfer Diagnosis at time of Disposition: Small bowel obstruction, Pneumatosis intestinalis of small intestine Sepsis Qualifiers: Sepsis type: sepsis due to unspecified organism Qualified Code(s): A41.9 - Sepsis, unspecified organism Abdominal pain Qualifiers: Abdominal location: left upper quadrant Qualified Code(s): R10.12 - Left upper quadrant pain - Discharge Dispostion Admit: Yes Decision to Admit order Date/Time: Decision to Admit Order Category Date Time Status Decision to Admit to Hospital Routine Admission 09/03/17 19:54 Ordered - Referrals - Patient Instructions - Post Discharge Activity
--- NOTE | 2017-09-03 21:14 | PDOC ---
*Physical Exam - Vital Signs Last Vital Signs Temp Pulse Resp BP Pulse Ox 98.6 F 93 H 18 119/67 99 09/03/17 18:32 09/03/17 18:32 09/03/17 18:32 09/03/17 18:32 09/03/17 18:32 - Physical Exam General Appearance: Yes: Nourished Gastrointestinal/Abdominal: positive: Increased Bowel Sounds, Distended ED Treatment Course - LABORATORY CBC & Chemistry Diagram: 09/04/17 01:00 09/03/17 17:08 - ADDITIONAL ORDERS Additional order review: Laboratory Results 09/03/17 09/03/17 09/03/17 17:55 17:08 16:15 PT with INR INR Sodium 132 L Potassium 4.5 D Chloride 82 L D Carbon Dioxide 36 H Anion Gap 14 BUN 74 H D Creatinine 3.9 H D Creat Clearance w eGFR 14.87 Random Glucose 213 H D Lactic Acid 6.7 H* Calcium 9.8 Phosphorus 7.0 H Cancelled Magnesium 2.8 H Cancelled Total Bilirubin 1.5 H D AST 22 ALT 31 D Alkaline Phosphatase 85 D Creatine Kinase Troponin I Total Protein 7.9 Albumin 4.4 Lipase 130 Cancelled 09/03/17 09/03/17 16:15 16:15 PT with INR 22.60 H INR 2.00 H Sodium Cancelled Potassium Cancelled Chloride Cancelled Carbon Dioxide Cancelled Anion Gap Cancelled BUN Cancelled Creatinine Cancelled Creat Clearance w eGFR Cancelled Random Glucose Cancelled Lactic Acid Calcium Cancelled Phosphorus Magnesium Total Bilirubin Cancelled AST Cancelled ALT Cancelled Alkaline Phosphatase Cancelled Creatine Kinase Cancelled Troponin I Cancelled Total Protein Cancelled Albumin Cancelled Lipase 09/03/17 16:15 RBC 6.92 H MCV 73.6 L MCHC 31.9 L RDW 17.0 H MPV 7.7 D Neutrophils % 92.2 H D Lymphocytes % 3.1 L D Monocytes % 4.6 Eosinophils % 0.0 D Basophils % 0.1 - RADIOLOGY Radiology Studies Ordered: Category Date Time Status ABDOMEN & PELVIS CT W/O CONTR [CT] Stat CT Scan 09/03/17 18:18 Taken - Medications Given in the ED: ED Medications Discontinued Medications Generic Name Dose Route Start Last Admin Trade Name Freq PRN Reason Stop Dose Admin Vancomycin HCl 1,000 mg/ 250 mls @ 250 mls/hr 09/03/17 19:13 09/03/17 19:50 Dextrose IVPB 09/03/17 20:12 250 mls/hr ONCE ONE Administration Protocol Ondansetron HCl 4 mg 09/03/17 19:42 09/03/17 19:51 Zofran Injection IVPUSH 09/03/17 19:43 4 mg ONCE ONE Administration Piperacillin Sod/Tazobactam Sod 3.375 gm 09/03/17 18:12 09/03/17 18:30 Zosyn 3.375gm Ivpb (Pre-Docked) IVPB 09/03/17 18:13 3.375 gm ONCE ONE Administration Sodium Chloride 1,000 ml 09/03/17 17:32 09/03/17 17:39 Normal Saline - IV 09/03/17 17:33 1,000 ml ONCE ONE Administration Sodium Chloride 2,700 ml 09/03/17 18:11 09/03/17 18:31 Normal Saline - IV 09/03/17 18:12 Not Given ONCE ONE Medical Decision Making - Critical Care Time Total Critical Care Time (minutes): 65 Critical Care Statement: The care of this patient involved high complexity decision making to prevent further life threatening deterioration of the patient 's condition and/or to evaluate & treat vital organ system(s) failure or risk of failure. - Medical Decision Making 09/03/17 21:12 Case presented to me by JOSIAH. 5 PM. Given elevated white blood cell count and elevated lactic patient started on 30 mL per Kg IVF bolus, Zosyn ordered. CAT scan ordered Reevaluation CAT scan with evidence of SBO and likely pneumatosis intestinalis. Case discussed with Dr. Calhoun surgery. In route to hospital for emergent surgery All findings, need for surgery and CAT scan results discussed at length with patient and daughter at bedside. Patient's breaker hand Dr. Watkins updated on patient's situation. NG tube placed Additional IVF ordered. BP now 106 systolic FFP ordered x 2 per surgeons request. Patient transferred to OR *DC/Admit/Observation/Transfer Diagnosis at time of Disposition: Small bowel obstruction, Pneumatosis intestinalis of small intestine Sepsis Qualifiers: Sepsis type: sepsis due to unspecified organism Qualified Code(s): A41.9 - Sepsis, unspecified organism Abdominal pain Qualifiers: Abdominal location: left upper quadrant Qualified Code(s): R10.12 - Left upper quadrant pain - Referrals - Patient Instructions - Post Discharge Activity
[2017-09-03 21:41] LABS: URINE APPEARANCE SLCLOUDY; URINE BILIRUBIN NEGATIVE (NEGATIVE); URINE BLOOD NEGATIVE (NEGATIVE); URINE COLOR YELLOW; URINE GLUCOSE (UA) 1+ (NEGATIVE); URINE KETONE NEGATIVE (NEGATIVE); URINE LEUK ESTERASE NEGATIVE (NEGATIVE); URINE NITRITE NEGATIVE (NEGATIVE); URINE PROTEIN NEGATIVE (NEGATIVE); URINE UROBILINOGEN NEGATIVE mg/dL (0.2-1.0)
[2017-09-03 22:00] LABS: ARTERIAL BLD GAS O2 SATURATION 93.9 % (90-98.9); ARTERIAL BLOOD GAS BASE EXCESS 8.4 meq/l (-2-2); ARTERIAL BLOOD GAS PCO2 43.9 mmHg (35-45); ARTERIAL BLOOD GAS PO2 70.9 mmHg (68-100)
[2017-09-03 22:01] LABS: ALLENS TEST POSITIVE
[2017-09-03] MEDS ORDERED: ETOMIDATE 20 MG/10 ML AMPUL IVPUSH ONE ×2 (22:08→22:09)
[2017-09-03] MEDS ORDERED: ROCURONIUM BROMIDE 50 MG/5 ML VIAL ONE (22:08)
[2017-09-03] MEDS ORDERED: fentaNYL CITRATE 250 MCG/5 ML VIAL ONE (22:08)
[2017-09-03 22:17] LABS: INR 1.8 (0.82-1.09); PROTHROMBIN TIME (PATIENT) 20.3 SEC (9.98-11.88)
[2017-09-03 22:20] LABS: ACTIVATED PTT 32.4 SECONDS (26.9-34.4)
--- NOTE | 2017-09-03 22:22 | CONSULT ---
Consult Consult Specialty:: Surgery Referred by:: Dario Menezes Reason for Consultation:: Intestinal obstruction. - History of Present Illness Chief Complaint: 82 year old man comes to the emergency room , c/o abdominal pain to the left of the midline for the past 3 days with vomiting. He has had abdominal surgery in the past, with chiolecystectomy and repair of ventral hernia many years ago. He was schedule to have two cardiac valve replaced in the next week, at [facility]. History of Present Illness: C/O abdominal pain with vomiting for 3 days. 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 (H/O having a subdural hematoma about 6 months ago.) Cardio/Vascular: Yes: AFIB, CHF, HTN, Mitral Stenosis, Pulmonary Hypertension - Past Surgical History Past Surgical History: Yes: Cholecystectomy, Hernia Repair - Alcohol/Substance Use Hx Alcohol Use: No - Smoking History Smoking history: Never smoked Have you smoked in the past 12 months: No If you are a former smoker, when did you quit?: 40YRS - Social History ADL: Independent Home Medications - Allergies Allergies/Adverse Reactions: Allergies Allergy/AdvReac Type Severity Reaction Status Date / Time apixaban [From Eliquis] Allergy Intermediate Rash Verified 09/03/17 14:40 - Home Medications Home Medications: Ambulatory Orders Atorvastatin Ca [Lipitor] 10 mg PO HS tablet 11/30/16 Furosemide [Lasix -] 20 mg PO DAILY tablet 11/30/16 Metoprolol Tartrate [Lopressor -] 50 mg PO BID tablet 11/30/16 Rivaroxaban [Xarelto -] 20 mg PO DAILY tablet 11/30/16 Spironolactone [Aldactone -] 25 mg PO DAILY #0 tablet 11/30/16 Valsartan [Diovan] 80 mg PO DAILY tablet 11/30/16 Family Disease History - Family Disease History Family Disease History: Heart Disease: Father, Mother Review of Systems - Review of Systems Constitutional: reports: No Symptoms Physical Exam Vital Signs: Vital Signs Temperature 98.6 F 09/03/17 18:32 Pulse Rate 93 H 09/03/17 18:32 Respiratory Rate 18 09/03/17 18:32 Blood Pressure 119/67 09/03/17 18:32 O2 Sat by Pulse Oximetry (%) 99 09/03/17 18:32 Gastrointestinal: Yes: Abdomen, Obese, Distention (Distended upper abdomen with mild diffuse abdominal tendernesss, without guarding and rigidity.) Labs: CBC, BMP 09/03/17 16:15 09/03/17 17:08 Imaging - Results Cat Scan: Report Reviewed, Image Reviewed (? Small intestinal obstruction with ? pneumatosis.) Problem List - Problems (1) Abdominal pain Code(s): R10.9 - UNSPECIFIED ABDOMINAL PAIN Qualifiers: Abdominal location: left upper quadrant Qualified Code(s): R10.12 - Left upper quadrant pain (2) Small bowel obstruction Code(s): K56.609 - UNSP INTESTNL OBST, UNSP TO PARTIAL VERSUS COMPLETE OBST (3) Heart failure, diastolic, with acute decompensation Code(s): I50.33 - ACUTE ON CHRONIC DIASTOLIC (CONGESTIVE) HEART FAILURE (4) Moderate to severe mitral regurgitation Code(s): I34.0 - NONRHEUMATIC MITRAL (VALVE) INSUFFICIENCY (5) Pneumatosis intestinalis of small intestine Code(s): K63.89 - OTHER SPECIFIED DISEASES OF INTESTINE Assessment/Plan Intestinal obstruction , of small intestine, with pneumatosis intestinalis. Heart failure with severe mitral stenosis, atrial fibrillation , gout, Lactic acidosis. coagulo[bhavesh. Plan : resuscitate , correct coagulopathy, Laparotomy possible bowel resection. 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 His grave medical condition was discussed , will resuscitate, and do laparotomy possible bowel resection. Correct INR with FFp. Patient and family explained about the complexity of his condition. Risks , benefits and complications were explained. Consent obtained for surgery. antibiotics given. Coagulopathy corrected with FFP.
[2017-09-03] MEDS ORDERED: DEXAMETHASONE SOD PHOSPHATE 4 MG/1 ML VIAL ONE (23:44)
[2017-09-03] MEDS ORDERED: METOPROLOL TARTRATE 5 MG/5 ML VIAL ONE (23:49)
[2017-09-03] MEDS ORDERED: PHENYLEPHRINE HCL 10 MG/1 ML SINGLE DOSE VIAL ONE (23:55)
[2017-09-04] MEDS ORDERED: NEOSTIGMINE METHYLSULFATE 0.5 MG/ML - 10 ML MDV ONE (00:04)
[2017-09-04] MEDS ORDERED: GLYCOPYRROLATE 0.2 MG/1 ML VIAL ONE (00:04)
--- NOTE | 2017-09-04 00:26 | OP ---
Operative Note - Note: Operative Date: 09/04/17 Pre-Operative Diagnosis: Intestinal obstruction,. Atrial fibrillation, mitral stenosis, cardiac failure. Findings: Small intestinal obstruction , secondary to a band of adhesions in the left upper quadrant of the abdomen. Post-Operative Diagnosis: Other (Small intestinal obstruction secondary to adhesive band.) Surgeon: Bell Calhoun Lifestyle Consultant: Kedar Fairbanks Anesthesia: General Estimated Blood Loss (mls): 25 Operative Report Dictated: Yes
[2017-09-04] MEDS ORDERED: FUROSEMIDE 40 MG/4 ML INJECTABLE VIAL ONE (00:37)
[2017-09-04] MEDS ORDERED: D5-1/2NS+20 MEQ KCL - 20 MEQ/1,000 ML INFUS.BAG IV SCH (00:45)
[2017-09-04] MEDS ORDERED: METOPROLOL TARTRATE 5 MG/5 ML VIAL ONE (00:55)
[2017-09-04] MEDS ORDERED: HYDROmorphone HCL CARPU-JECT 1 MG/1 ML DISP.SYRIN IVPUSH PRN (00:59)
[2017-09-04] MEDS: METOPROLOL TARTRATE 5 MG/5 ML VIAL IVPUSH ONE ×2 (01:00→02:30)
[2017-09-04] MEDS ORDERED: HYDROmorphone HCL CARPU-JECT 4 MG/1 ML DISP.SYRIN IVPB PRN (01:11)
[2017-09-04 01:15] LABS: HEMATOCRIT 39.8 % (35.4-49); HEMOGLOBIN 12.7 GM/dL (11.7-16.9); MCH 23.4 pg (25.7-33.7); MCHC 31.8 g/dl (32.0-35.9); MEAN CELL VOLUME 73.4 fl (80-96); MEAN PLT VOLUME 7.7 fl (7.5-11.1); PLATELET COUNT 194 K/MM3 (134-434); RBC 5.42 M/mm3 (4.00-5.60); RDW 16.2 % (11.9-15.9)
[2017-09-04 01:22] LABS: ARTERIAL BLD GAS O2 SATURATION 95.4 % (90-98.9); ARTERIAL BLOOD GAS BASE EXCESS 3.8 meq/l (-2-2); ARTERIAL BLOOD GAS pH 7.32 (7.35-7.45)
[2017-09-04 01:25] LABS: ARTERIAL BLOOD GAS PCO2 61.4 mmHg (35-45)
[2017-09-04 01:39] LABS: ALBUMIN 2.9 g/dl (3.4-5.0); ALK PHOS 55 U/L (45-117); ANION GAP 12 (8-16); BILIRUBIN,TOTAL 1.1 mg/dL (0.2-1.0); BLOOD UREA NITROGEN 69 mg/dL (7-18); CALCIUM 7.6 mg/dL (8.5-10.1); CHLORIDE 95 mmol/L (98-107); CO2 32 mmol/L (21-32); CREATININE 2.9 mg/dL (0.7-1.3); GLUCOSE,RANDOM 155 mg/dL (74-106); POTASSIUM 3.9 mmol/L (3.5-5.1); SGOT/AST 18 U/L (15-37); SGPT/ALT 23 U/L (12-78); SODIUM 139 mmol/L (136-145); TOT PROT 5.4 g/dl (6.4-8.2)
[2017-09-04] MEDS ORDERED: PIPERACILLIN/TAZOB 3.375 GM/50 ML PRE-DOCKED IVPB SCH (02:00)
--- NOTE | 2017-09-04 02:12 | OP ---
DATE OF OPERATION: 09/04/2017 PREOPERATIVE DIAGNOSIS: Intestinal obstruction, lactic acidosis, abdominal pain , atrial fibrillation, mitral stenosis, and cardiac failure. POSTOPERATIVE DIAGNOSIS: Intestinal obstruction, lactic acidosis, abdominal pain, atrial fibrillation, mitral stenosis, and cardiac failure. OPERATIVE PROCEDURE: Exploratory laparotomy, release of intestinal obstruction , and lysis of adhesions. SURGEON: Mitzi Rojas MD HEAD MECHANIC: Kedar Fairbanks MD ANESTHESIA: General anesthesia. OPERATIVE DESCRIPTION: This 82-year-old man with a history of mitral stenosis, congestive heart failure, pulmonary hypertension, history of subdural hematoma, came to the emergency room complaining of abdominal pain in the upper abdomen on the left side for the last 3 days with vomiting. He is also in atrial fibrillation and has been on Xarelto and Coumadin. He also had lactic acidosis and hemoconcentration secondary to severe dehydration. Patient is distended in the upper abdomen. A CT scan suggested that he had intestinal obstruction in the distal small bowel with possible pneumatosis. Because of the pneumatosis and intestinal obstruction, the patient was taken to the operating room. Consent obtained from the patient after it was explained. The risks, benefits, and complications had been explained. NG tube was placed in the emergency room. Patient was hydrated with 5 liters of fluids. Sandoval catheter was placed in the bladder. The patient was given general anesthesia and 2 units of FFP were given prior to the procedure. The abdomen was prepped and draped. A vertical midline incision was made above and below the umbilicus. It was deepened through the skin and subcutaneous tissue and the linea alba. The abdominal cavity was entered. The small bowel was dilated. The small bowel dilatation was followed all of the way and an adhesive band was noted going across the distal portion of the small bowel in the left upper quadrant of the abdomen. This was carefully incised and the intestinal obstruction was released. The rest of the bowel was normal. The terminal ileum was completely collapsed secondary to the obstruction and the adhesive band. Once this was released, all of the obstruction was relieved. The rest of the abdomen was normal. There was no evidence of bowel ischemia. The large bowel was normal. The rest of the abdomen was normal. The abdomen was then closed with continuous number 1, looped PDS sutures. Estimated blood loss was about 25-50 mL. Sponge count and instrument counts were correct. The skin was approximated with vishnu. The patient tolerated the procedure well and returned to the recovery room in stable condition and will be taken to the ICU. The Sandoval catheter was left in place. MITZI ROJAS M.D. [id number] cc: MD David Poole MD MTDD
[2017-09-04] MEDS: PIPERACILLIN/TAZOB 3.375 GM 3.375 GM in DEXTROSE 5%-WATER - 50 ML IVPB SCH ×3 (02:31→20:27)
[2017-09-04 03:12] VITALS: BMI 28.3
--- NOTE | 2017-09-04 03:33 | CONSULT ---
Consult Consult Specialty:: Pulmonary Critical Care Reason for Consultation:: SBO, s/p exploratory laparatomy - History of Present Illness Chief Complaint: n/v History of Present Illness: Pt is a 81 yo male with h/o CAD, CHF, Afib (on AC), HTN, HLD, DM and CKD ( baseline Cr 1.3-1.5) who presented to ED 3 days of n/v. Admission labs notable for WBC 18, Cr 3.9, Lactate 6.7. Vitals notable for tachycardia and SBP of 90s. He was given 3L of NS and started on zosyn. CT scanned showed SBO with likely pneumatosis intestinalis. NG tube placed and drained 1.1L. Surgery consulted and pt underwent exploratory laparatomy, lysis of adhesions and release of intestinal obstruction. Prior to OR has recd 2 units of FFP (INR 2 on Xeralto), during surgery has recd ~7L of fluids. Was also given flagyl and a dose of vancomycin. He was extubated to NRB after surgery with SpO2 in low 90s. Dose of lasix given with minimal UO, was also given dose of metoprolol for HR of 120s. Post surgery labs: Hgb 12, Cr 2.9, Lactate 4.6 Current Medications Chlorhexidine Gluconate (Hibiclens For Decolonization -) 1 applic TP HS MELISSA Hydromorphone HCl (Dilaudid Injection -) 0.5 mg IVPUSH Q10M PRN PRN Reason: PAIN-PACU ORDER X 4 DOSES ONLY Stop: 09/04/17 04:00 Hydromorphone HCl (Dilaudid Injection -) 1 mg IVPB Q4H PRN PRN Reason: PAIN Potassium Chloride/Dextrose/Sod Cl (D5-1/2ns+20 Meq Kcl -) 20 meq in 1,000 mls @ 100 mls/hr IV ASDIR MELISSA Last Admin: 09/04/17 02:29 Dose: 100 mls/hr Piperacillin Sod/Tazobactam (Sod 3.375 gm/ Dextrose) 50 mls @ 100 mls/hr IVPB Q8H-IV MELISSA Stop: 09/04/17 10:29 Last Admin: 09/04/17 02:31 Dose: 100 mls/hr Mupirocin (Bactroban Ointment (For Decolonization) -) 1 applic NS BID MELISSA Stop: 09/09/17 09:59 Piperacillin Sod/Tazobactam Sod (Zosyn 3.375gm Ivpb (Pre-Docked)) 3.375 gm IVPB Q8H-IV MELISSA PRN Reason: Protocol Stop: 09/05/17 01:59 - 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 (H/O having a subdural hematoma about 6 months ago.) Cardio/Vascular: Yes: AFIB, CHF, HTN, Mitral Stenosis, Pulmonary Hypertension - Past Surgical History Past Surgical History: Yes: Cholecystectomy, Hernia Repair - Alcohol/Substance Use Hx Alcohol Use: No - Smoking History Smoking history: Never smoked Have you smoked in the past 12 months: No If you are a former smoker, when did you quit?: 40YRS - Social History ADL: Independent Home Medications - Allergies Allergies/Adverse Reactions: Allergies Allergy/AdvReac Type Severity Reaction Status Date / Time apixaban [From Eliquis] Allergy Intermediate Rash Verified 09/03/17 14:40 - Home Medications Home Medications: Ambulatory Orders Atorvastatin Ca [Lipitor] 10 mg PO HS tablet 11/30/16 Furosemide [Lasix -] 20 mg PO DAILY tablet 11/30/16 Metoprolol Tartrate [Lopressor -] 50 mg PO BID tablet 11/30/16 Rivaroxaban [Xarelto -] 20 mg PO DAILY tablet 11/30/16 Spironolactone [Aldactone -] 25 mg PO DAILY #0 tablet 11/30/16 Valsartan [Diovan] 80 mg PO DAILY tablet 11/30/16 Family Disease History - Family Disease History Family Disease History: Heart Disease: Father, Mother Physical Exam Vital Signs: Vital Signs Temperature 96.9 F L 09/04/17 02:00 Pulse Rate 102 H 09/04/17 02:00 Respiratory Rate 28 H 09/04/17 02:00 Blood Pressure 93/58 09/04/17 02:00 O2 Sat by Pulse Oximetry (%) 94 L 09/04/17 02:00 Respiratory: Yes: CTA Bilaterally (diminished bases) Gastrointestinal: Yes: Other (softly distended, dressing c/d/i) Extremities: Yes: WNL Edema: No Wound/Incision: Yes: Dressing Dry and Intact Neurological: Yes: WNL Labs: CBC, BMP 09/04/17 01:00 09/04/17 01:00 Problem List - Problems (1) Pneumatosis intestinalis of small intestine Code(s): K63.89 - OTHER SPECIFIED DISEASES OF INTESTINE (2) Sepsis Code(s): A41.9 - SEPSIS, UNSPECIFIED ORGANISM Qualifiers: Sepsis type: sepsis due to unspecified organism Qualified Code(s): A41.9 - Sepsis, unspecified organism (3) Small bowel obstruction Code(s): K56.609 - UNSP INTESTNL OBST, UNSP TO PARTIAL VERSUS COMPLETE OBST (4) Chronic kidney disease (CKD) Code(s): N18.9 - CHRONIC KIDNEY DISEASE, UNSPECIFIED (5) Heart failure, diastolic, with acute decompensation Code(s): I50.33 - ACUTE ON CHRONIC DIASTOLIC (CONGESTIVE) HEART FAILURE Assessment/Plan SBO, pneumatosis intestinalis; s/p exploratory laparatomy, lysis of adhesions and release of intestinal obstruction Acute kidney failure likely in the setting decrease PO intake +/- abdominal compartment syndrome due to SBP (improving). Baseline Cr 1.3-1.5 Lactic acidosis (improving ) Hypoxia likely in the setting of fluid overload (~10L positive) Sepsis Afib on AC -surgery following -pain management prn -NPO -cont zosyn -no indication for vanco -f/u cultures -repeat CXR -diurese if e/o fluid overload on CXR -cont venti mask--> wean off as tolerated -metoprolol prn for rate control -restart AC when ok with surgery -trend UO and SCr -trend lactate -venodynes for ppx MICHAELA Rizzo Critical Care Time: 35 min
[2017-09-04 06:48] LABS: ANION GAP 10 (8-16); BLOOD UREA NITROGEN 69 mg/dL (7-18); CHLORIDE 95 mmol/L (98-107); CO2 33 mmol/L (21-32); CREATININE 2.6 mg/dL (0.7-1.3); GLUCOSE,RANDOM 156 mg/dL (74-106); MAGNESIUM 2.2 mg/dL (1.8-2.4); PHOSPHOROUS 5.1 mg/dL (2.5-4.9); POTASSIUM 3.9 mmol/L (3.5-5.1); SODIUM 138 mmol/L (136-145)
[2017-09-04 06:51] LABS: HEMATOCRIT 40.4 % (35.4-49); MCH 23.7 pg (25.7-33.7); MCHC 32.2 g/dl (32.0-35.9); MEAN CELL VOLUME 73.5 fl (80-96); MEAN PLT VOLUME 8.8 fl (7.5-11.1); PLATELET COUNT 199 K/MM3 (134-434); RDW 15.9 % (11.9-15.9); WHITE BLOOD COUNT 11.3 K/mm3 (4.0-10.0)
--- NOTE | 2017-09-04 07:25 | PN ---
Progress Note, Physician Chief Complaint: 82 YOM with h/o CAD (scheduled for cardiac cath and valve repair), CHF, AFib ( on Xarelto), HTN, HLD, DM, CKD, subdural hematoma (about 6 mo ago), presented to ED 09/03 for intermittent vomiting since about 08/31, seen by PMD Dr. Bihsop who Rx'ed Zofran and when sxs continued despite taking this, Pt was advised to come to ED. Found e/o SBO and pneumatosis intestinalist on CT, now s/p uncomplicated ex-lap with lysis of adhesions and release of bowel. Given 2 units FFP, vancomycin, zosyn, 7 liters IVF during surgery. 24 Hour Events: Received patient from PACU on ventimask at 50%, doing remarkably well. Subjective: Intake/Output: In: Out: Net: BM: Exam: - Current Medication List Current Medications: Active Medications Chlorhexidine Gluconate (Hibiclens For Decolonization -) 1 applic TP HS MELISSA Hydromorphone HCl (Dilaudid Injection -) 1 mg IVPB Q4H PRN PRN Reason: PAIN Piperacillin Sod/Tazobactam (Sod 3.375 gm/ Dextrose) 50 mls @ 100 mls/hr IVPB Q8H-IV MELISSA Stop: 09/04/17 10:29 Last Admin: 09/04/17 02:31 Dose: 100 mls/hr Mupirocin (Bactroban Ointment (For Decolonization) -) 1 applic NS BID MELISSA Stop: 09/09/17 09:59 Piperacillin Sod/Tazobactam Sod (Zosyn 3.375gm Ivpb (Pre-Docked)) 3.375 gm IVPB Q8H-IV MELISSA PRN Reason: Protocol Stop: 09/05/17 01:59 - Objective Vital Signs: Vital Signs Temperature 96.9 F L 09/04/17 02:00 Pulse Rate 102 H 09/04/17 02:00 Respiratory Rate 28 H 09/04/17 02:30 Blood Pressure 93/58 09/04/17 02:00 O2 Sat by Pulse Oximetry (%) 92 L 09/04/17 02:30 Constitutional: Yes: Well Nourished, No Distress, Calm Eyes: Yes: WNL, Conjunctiva Clear, EOM Intact HENT: Yes: WNL, Atraumatic, Normocephalic Neck: Yes: WNL, Supple Cardiovascular: Yes: Tachycardia, Pulse Irregular Respiratory: Yes: Regular, CTA Bilaterally Gastrointestinal: Yes: Normal Bowel Sounds, Soft, Other (ex-lap incision CDI with dressing in place without soak through) Musculoskeletal: Yes: Back Pain Extremities: No: Calf Tenderness, Cold, Cyanosis, Deformity, Delayed Capillary Refill Edema: No Integumentary: Yes: WNL. No: Jaundice, Skin Tear, Tenting Wound/Incision: Yes: Clean/Dry, Well Approximated, Dressing Dry and Intact Neurological: Yes: WNL, Alert, Oriented ...Motor Strength: WNL Psychiatric: Yes: WNL Labs: CBC, BMP 09/04/17 05:50 INR, PTT INR 1.80 (0.82-1.09) H 09/03/17 21:35 - ....Imaging Chest X-ray: Report Reviewed, Image Reviewed, Other (slight increased pulmonary vascular congestion, NGT tip within stomach) Assessment/Plan 82 YOM with h/o CAD (scheduled for cardiac cath and valve repair), CHF, mitral stenosis, AFib (on Xarelto), HTN, HLD, DM, CKD, subdural hematoma (about 6 mo ago), presented to ED 09/03 for intermittent vomiting since about 08/31, seen by PMD Dr. Bishop who Rx'ed Zofran and when sxs continued despite taking this, Pt was advised to come to ED. Found e/o SBO and pneumatosis intestinalist on CT, now s/p uncomplicated ex-lap with lysis of adhesions and release of bowel. Given 2 units FFP, vancomycin, zosyn, 7 liters IVF during surgery. GI: #SBO with pneumatosis intestinalis, reduced in OR. Received vancomycin/Zosyn intraoperatively. -Monitor for BM -Surgery consulting -Pain management w/ Dilaudid ID: #Sepsis, improving. In ED HR was up to 133, BP down to 92/68, 90% pulse ox. Likely 2/2 SBO with pneumatosis intestinalis. No perforation seen on ex-lap. -Continue Zosyn, DC vancomycin -Trend lactate, WBC -F/U cultures #Pneumatosis intestinalis, improving. Likely 2/2 SBO which was reduced in OR. -Serial abdominal exams CV: #A-fib on AC, chronic. Manager Lpn: Dr. Riojas -Metoprolol for rate control as BP permits -Restart AC when recommended by Surgery -Cardiology consult #CAD -Restart home meds when recommended by Surgery -Cardiology consult Pulm: #Hypoxia, improving. Likely 2/2 fluid overload and CHF exacerbation -Careful prn if clinically volume overloaded or congestion on CXR -Continue ventimask Renal: #RILEY on CKD, exacerbated from baseline (Cr 1.3-1.5) but improving. BUN 118, Cr 2.6 this AM. Likely 2/2 hypoperfusion in sepsis. -Continue IVF and Lasix -Trend BUN/Cr/UOP FEN -Monitor CMP, Mg, Phos -Replace electrolytes prn PPX: -Venodynes Lines/Drains/Tubes NGT placed 09/03/17 PIV placed 09/03/17 Aterial line placed 09/03/17 Sandoval placed 09/03/18 Disposition: Further ICU care
--- NOTE | 2017-09-04 08:47 | PN ---
Progress Note (short form) - Note Progress Note: Anesthesia postop note 82 y/o m, s/p GA for exploratory Laparotomy for lysis of adhesions POD#1, vss, alert and awake, in no acute distress, pain fairly well controlled No anesthesia complications.
[2017-09-04] MEDS: MUPIROCIN 2% TOPICAL OINTMENT FOR DECOLONIZATION NS SCH ×2 (09:16→21:16)
--- NOTE | 2017-09-04 11:14 | CON.CARD ---
Consult Consult Specialty:: Cardiology Referred by:: Riri Bishop MD Reason for Consultation:: Valvular heart disease - History of Present Illness Chief Complaint: Nausea/emesis/abd pain History of Present Illness: 82 yo male h/o diastolic dysfunction, persistent afib [id number] on Xarelto, mod-severe MR and AR, HTH/HCVD, DM, chol, CKD, CAD angina pectoris, presented with 3 days of nausea and emesis, CT scan showed SBO with likely pneumatosis intestinalis. NG tube placed and drained 1.1L. He subsquently underwent exploratory laparatomy, lysis of adhesions and release of intestinal obstruction. Was also given flagyl and a dose of vancomycin. He was extubated to NRB after surgery with SpO2 in low 90s. Dose of lasix given with minimal UO, was also given dose of metoprolol for HR of 120s. Post surgery with improvement of ABC, lactate and Cr, hemodynamically stable. 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 (H/O having a subdural hematoma about 6 months ago.) Cardio/Vascular: Yes: AFIB, CHF, HTN, Mitral Stenosis, Pulmonary Hypertension - Past Surgical History Past Surgical History: Yes: Cholecystectomy, Hernia Repair - Alcohol/Substance Use Hx Alcohol Use: No - Smoking History Smoking history: Never smoked Have you smoked in the past 12 months: No If you are a former smoker, when did you quit?: 40YRS - Social History ADL: Independent Home Medications - Allergies Allergies/Adverse Reactions: Allergies Allergy/AdvReac Type Severity Reaction Status Date / Time apixaban [From Eliquis] Allergy Intermediate Rash Verified 09/03/17 14:40 - Home Medications Home Medications: Ambulatory Orders Atorvastatin Ca [Lipitor] 10 mg PO HS tablet 11/30/16 Furosemide [Lasix -] 20 mg PO DAILY tablet 11/30/16 Metoprolol Tartrate [Lopressor -] 50 mg PO BID tablet 11/30/16 Rivaroxaban [Xarelto -] 20 mg PO DAILY tablet 11/30/16 Spironolactone [Aldactone -] 25 mg PO DAILY #0 tablet 11/30/16 Valsartan [Diovan] 80 mg PO DAILY tablet 11/30/16 Family Disease History - Family Disease History Family Disease History: Heart Disease: Father, Mother Review of Systems Unable to obtain ROS, reason: Clinical condition Vital Signs: Vital Signs Temperature 98.1 F 09/04/17 10:00 Pulse Rate 99 H 09/04/17 10:00 Respiratory Rate 17 09/04/17 10:00 Blood Pressure 93/63 09/04/17 10:00 O2 Sat by Pulse Oximetry (%) 99 09/04/17 08:00 Constitutional: Yes: No Distress, Calm Neck: Yes: Supple Respiratory: Yes: Regular, Diminished, On Venti-Mask Gastrointestinal: Yes: Soft, Hypoactive Bowel Sounds Cardiovascular: Yes: Pulse Irregular JVD: No Carotid Bruit: No Heart Sounds: Yes: S1, S2 Murmur: Yes: Systolic Murmur, Grade 1 Edema: No - Other Data Labs, Other Data: CBC, BMP 09/04/17 05:50 09/04/17 05:50 INR, PTT INR 1.80 (0.82-1.09) H 09/03/17 21:35 Troponin, BNP 09/03/17 16:15 Troponin I Cancelled Troponin, BNP 09/03/17 16:15 Troponin I Cancelled EKG: Afib @ 112 Tele: Afib Imaging - Results Chest X-ray: Report Reviewed (Slight increase in pulmonary and pleural changes) Problem List - Problems (1) [id number] kidney injury Code(s): N17.9 - ACUTE KIDNEY FAILURE, UNSPECIFIED; N18.9 - CHRONIC KIDNEY DISEASE, UNSPECIFIED Qualifiers: Chronic kidney disease stage: unspecified stage (2) Lactic acidosis Code(s): E87.2 - ACIDOSIS (3) Status post exploratory laparotomy Code(s): Z98.890 - OTHER SPECIFIED POSTPROCEDURAL STATES (4) Pneumatosis intestinalis of small intestine Code(s): K63.89 - OTHER SPECIFIED DISEASES OF INTESTINE (5) Small bowel obstruction Code(s): K56.609 - UNSP INTESTNL OBST, UNSP TO PARTIAL VERSUS COMPLETE OBST (6) Hypertensive cardiomyopathy Code(s): I11.9 - HYPERTENSIVE HEART DISEASE WITHOUT HEART FAILURE; I43 - CARDIOMYOPATHY IN DISEASES CLASSIFIED ELSEWHERE Qualifiers: Heart failure presence: without heart failure Qualified Code(s): I11.9 - Hypertensive heart disease without heart failure; I43 - Cardiomyopathy in diseases classified elsewhere; I43 - Cardiomyopathy in diseases classified elsewhere; I43 - Cardiomyopathy in diseases classified elsewhere; I43 - Cardiomyopathy in diseases classified elsewhere (7) Moderate aortic regurgitation Code(s): I35.1 - NONRHEUMATIC AORTIC (VALVE) INSUFFICIENCY (8) Moderate to severe mitral regurgitation Code(s): I34.0 - NONRHEUMATIC MITRAL (VALVE) INSUFFICIENCY (9) Persistent atrial fibrillation Code(s): I48.1 - PERSISTENT ATRIAL FIBRILLATION (10) T2DM (type 2 diabetes mellitus) Code(s): E11.9 - TYPE 2 DIABETES MELLITUS WITHOUT COMPLICATIONS Qualifiers: Diabetes mellitus complication detail: with diabetic retinopathy Assessment/Plan 11/29/2016 Echo: Mod cLVH, normal LV fxn, severe LAE, mild ARABELLA, mod-severe MR, mod TR, RVSP>60, mod AR, mild OH, small effusions 1. Small intestinal obstruction, secondary to a band of adhesions s/p exploratory laparotomy, lysis of adhesions, release of intestinal obstruction 2. Chronic diastolic failure with underlying mod-severe MR, mod AR, TR 3. CAD, angina pectoris 4. Persistent atrial fibrillation [id number] on NOAC 5. HTN/HCVD 6. Type 2 DM 7. Hyperlipidemia 8. Acute on CKD due to hemodynamic alterations 9. Lactic acidosis and leukocytosis improving PLAN: 1. Judicious hydration to keep slightly positive with monitor urine response, renal function and electrolytes 2. Hold Diovan 80 mg qd, Aldactone 25 qd and Lopressor 50 mg bid pending hemodynamic and renal stabilization, and Lipitor 10 mg qd 3. IV Lopressor as needed for rate-control in meantime 4. Resume Xarelto once post-op hemostasis has been achieved 5. Mitral and tricuspid valve repair/replacement planned for [facility] by Dr. Smith to be postponed until recovery 6. Thank you for consultative opportunity
--- NOTE | 2017-09-04 15:28 | PN ---
Progress Note, Physician - Current Medication List Current Medications: Active Medications Chlorhexidine Gluconate (Hibiclens For Decolonization -) 1 applic TP HS MELISSA Hydromorphone HCl (Dilaudid Injection -) 1 mg IVPB Q4H PRN PRN Reason: PAIN Last Admin: 09/04/17 13:40 Dose: 1 mg Mupirocin (Bactroban Ointment (For Decolonization) -) 1 applic NS BID MELISSA Stop: 09/09/17 09:59 Last Admin: 09/04/17 09:16 Dose: 1 applic Piperacillin Sod/Tazobactam Sod (Zosyn 3.375gm Ivpb (Pre-Docked)) 3.375 gm IVPB Q8H-IV MELISSA PRN Reason: Protocol Stop: 09/05/17 01:59 - Objective Vital Signs: Vital Signs Temperature 97.6 F 09/04/17 14:00 Pulse Rate 102 H 09/04/17 14:00 Respiratory Rate 16 09/04/17 14:00 Blood Pressure 103/61 09/04/17 14:00 O2 Sat by Pulse Oximetry (%) 99 09/04/17 08:00 Labs: CBC, BMP 09/04/17 05:50 09/04/17 05:50 INR, PTT INR 1.80 (0.82-1.09) H 09/03/17 21:35 Problem List - Problems (1) Abdominal pain Code(s): R10.9 - UNSPECIFIED ABDOMINAL PAIN Qualifiers: Abdominal location: left upper quadrant Qualified Code(s): R10.12 - Left upper quadrant pain (2) Small bowel obstruction Code(s): K56.609 - UNSP INTESTNL OBST, UNSP TO PARTIAL VERSUS COMPLETE OBST (3) Heart failure, diastolic, with acute decompensation Code(s): I50.33 - ACUTE ON CHRONIC DIASTOLIC (CONGESTIVE) HEART FAILURE (4) Moderate to severe mitral regurgitation Code(s): I34.0 - NONRHEUMATIC MITRAL (VALVE) INSUFFICIENCY (5) Pneumatosis intestinalis of small intestine Code(s): K63.89 - OTHER SPECIFIED DISEASES OF INTESTINE Assessment/Plan Surgery: patient is awake, alert and oriented. Patient and his family made aware of operative findings. Abdomen is soft , not distended. Plan : Out of bed, can resume anticoagulation. Lactic acid improving, WBc , and lytrs improving. manage fluids and cardiac coditions. Discussed with ICU team.
[2017-09-04] MEDS ORDERED: HEPARIN NA (PORCINE) 5,000 UNITS/ML 1ML VIAL SQ SCH (15:45)
--- NOTE | 2017-09-04 16:57 | HP ---
DATE OF ADMISSION: 09/03/2017 This is an 82-year-old male, known to me for some time. He was seen in the office on Monday with complaints of vomiting. I had started him on Zofran, there was no relief, in the morning, I told him to come to the ER. It was found that patient has an intestinal obstruction with pneumoperitonitis. Dr. Calhoun operated on him yesterday, and obstruction relieved. He is in ICU, taken care of by the ICU doctors and Dr. Calhoun. He is awake and alert and talking, on 2 L nasal cannula. PAST MEDICAL HISTORY: Six months ago, he had a bad head injury, he was at [facility] for a few weeks. After that, he improved and he was at home, walking around, taking his medications. Also known to have aortic stenosis, scheduled for surgery, aortic valve replacement. He is not a smoker. He is retired. He lives with his , has grown up children. PHYSICAL EXAMINATION: Vital Signs: blood pressure is 100/70, respiration 20, temperature 98, pulse 105. HEENT: Unremarkable. Neck: Supple, no JVD. Lungs: Clear. Heart: S1, S2 normal. No S3, S4. Abdomen: Dressing intact. Bowel sound negative. Legs: No edema. Genitourinary: Urine output satisfactory. LABORATORY REPORTS: WBC was 18, now it is 11.3, hemoglobin 13, hematocrit 40. Chemistry: Sodium 138, potassium 3.9, chloride 95, CO2 33, BUN 59, creatinine at admission 6.7, this morning it is 2.5. Chest x-ray negative. Pelvic CT showed intestinal obstruction with pneumoperitoneum. DIAGNOSIS: Intestinal obstruction, status post resection of portion of the small bowel; hypertension; aortic stenosis. Will follow. GUSTAVO GUEVARA M.D. [id number]
[2017-09-04] MEDS ORDERED: RIVAROXABAN 15 MG TABLET PO SCH (19:30)
[2017-09-04] MEDS: RIVAROXABAN 15 MG TABLET PO SCH (20:28)
[2017-09-04] MEDS: CHLORHEXIDINE GLUCONATE 4% CLEANSER FOR DECOLONIZATION TP SCH (21:16)
--- NOTE | 2017-09-04 23:19 | EKG ---
Test Reason : Blood Pressure : / mmHG Vent. Rate : 112 BPM Atrial Rate : 112 BPM P-R Int : 000 ms QRS Dur : 082 ms QT Int : 338 ms P-R-T Axes : 000 030 -69 degrees QTc Int : 461 ms ATRIAL FIBRILLATION WITH RAPID VENTRICULAR RESPONSE NONSPECIFIC ST AND T WAVE ABNORMALITY ABNORMAL ECG WHEN COMPARED WITH ECG OF 28-NOV-2016 16:39, VENT. RATE HAS INCREASED BY 42 BPM T WAVE VARIATION Confirmed by MANDY CHRISTIAN, BHARATHI ([id number]) on 09/04/2017 11:19:38 PM Referred By: Confirmed By:BHARATHI GALVAN MD
[2017-09-05] MEDS: PIPERACILLIN/TAZOB 3.375 GM 3.375 GM in DEXTROSE 5%-WATER - 50 ML IVPB SCH ×3 (01:07→17:04)
[2017-09-05 06:50] LABS: ALBUMIN 2.9 g/dl (3.4-5.0); ANION GAP 10 (8-16); BLOOD UREA NITROGEN 63 mg/dL (7-18); CHLORIDE 96 mmol/L (98-107); CO2 35 mmol/L (21-32); GLUCOSE,RANDOM 145 mg/dL (74-106); MAGNESIUM 2.8 mg/dL (1.8-2.4); POTASSIUM 3.8 mmol/L (3.5-5.1); SODIUM 141 mmol/L (136-145)
[2017-09-05 06:55] LABS: ALK PHOS 48 U/L (45-117); BILIRUBIN,TOTAL 1.7 mg/dL (0.2-1.0); CREATININE 2.2 mg/dL (0.7-1.3); PHOSPHOROUS 4.2 mg/dL (2.5-4.9); SGOT/AST 23 U/L (15-37); SGPT/ALT 18 U/L (12-78); TOT PROT 5.4 g/dl (6.4-8.2)
[2017-09-05 07:00] LABS: INR 1.93 (0.82-1.09); PROTHROMBIN TIME (PATIENT) 21.8 SEC (9.98-11.88)
[2017-09-05 07:02] LABS: ACTIVATED PTT 28.6 SECONDS (26.9-34.4)
--- NOTE | 2017-09-05 07:36 | PN ---
Progress Note, Physician Chief Complaint: 24 Hour Events: Patient doing well, taking ice chips, continuing NGT with low wall suction with bilious drainage, Sandoval inwelling with good UOP, no BM yet, labs improving. Subjective: Patient denies pain, states he feels dehydrated, lips are dry, a bit of a cough this AM but otherwise no complaints. Intake/Output: In: 220cc Out: 1750cc Net: -1530cc BM: None - Current Medication List Current Medications: Active Medications Chlorhexidine Gluconate (Hibiclens For Decolonization -) 1 applic TP HS [facility] Last Admin: 09/04/17 21:16 Dose: 1 applic Hydromorphone HCl (Dilaudid Injection -) 1 mg IVPB Q4H PRN PRN Reason: PAIN Last Admin: 09/04/17 13:40 Dose: 1 mg Mupirocin (Bactroban Ointment (For Decolonization) -) 1 applic NS BID [facility] Stop: 09/09/17 09:59 Last Admin: 09/04/17 21:16 Dose: 1 applic Piperacillin Sod/Tazobactam Sod (Zosyn 3.375gm Ivpb (Pre-Docked)) 3.375 gm IVPB Q8H-IV MELISSA PRN Reason: Protocol Stop: 09/05/17 01:59 Rivaroxaban (Xarelto -) 15 mg PO DAILY@1800 MELISSA Last Admin: 09/04/17 20:28 Dose: 15 mg - Objective Vital Signs: Vital Signs Temperature 98.6 F 09/05/17 02:00 Pulse Rate 108 H 09/05/17 07:00 Respiratory Rate 18 09/05/17 07:00 Blood Pressure 106/91 09/05/17 07:00 O2 Sat by Pulse Oximetry (%) 97 09/04/17 21:23 Constitutional: Yes: Well Nourished, No Distress, Calm Eyes: Yes: Conjunctiva Clear, EOM Intact HENT: Yes: Atraumatic, Normocephalic Neck: Yes: Supple, Trachea Midline Cardiovascular: Yes: Pulse Irregular Respiratory: Yes: Regular, CTA Bilaterally Gastrointestinal: Yes: Normal Bowel Sounds, Soft. No: Distention Genitourinary: Yes: Sandoval Present Musculoskeletal: Yes: WNL Extremities: Yes: WNL Edema: No Integumentary: Yes: WNL Wound/Incision: Yes: Clean/Dry, Well Approximated, Dressing Dry and Intact, Dressing Removed Neurological: Yes: WNL, Alert, Oriented ...Motor Strength: WNL Psychiatric: Yes: WNL, Alert, Oriented Labs: CBC, BMP 09/05/17 05:10 INR, PTT INR 1.93 (0.82-1.09) H 09/05/17 05:10 Assessment/Plan 82 YOM with h/o CAD (scheduled for cardiac cath and valve repair), CHF, mitral stenosis, AFib (on Xarelto), HTN, HLD, DM, CKD, subdural hematoma (about 6 mo ago), presented to ED 09/03 for intermittent vomiting since about 08/31, seen by PMD Dr. Bishop who Rx'ed Zofran and when sxs continued despite taking this, Pt was advised to come to ED. Found e/o SBO and pneumatosis intestinalist on CT, now s/p uncomplicated ex-lap with lysis of adhesions and release of bowel. Given 2 units FFP, vancomycin, zosyn, 7 liters IVF during surgery. GI: #SBO with pneumatosis intestinalis. Adhesions lysed and SBO reduced in OR. Received vancomycin/Zosyn. -Monitor for BM -Surgery consulting -Pain management w/ Dilaudid ID: #Sepsis, improving. In ED HR was up to 133, BP down to 92/68, 90% pulse ox. Likely 2/2 SBO with pneumatosis intestinalis. No perforation seen on ex-lap. -Continue Zosyn -Trend lactate, WBC -F/U cultures -CXR now #Pneumatosis intestinalis, improving. Likely 2/2 SBO which was reduced in OR. -Serial abdominal exams CV: #A-fib on AC, chronic. Rubbing Bed Operator: Dr. Riojas -Metoprolol for rate control -Resumed home Xarelto -Restart AC when recommended by Surgery -Cardiology consult #CAD -Restart home meds when recommended by Surgery -Cardiology consult Pulm: #Hypoxia, improved. Likely 2/2 fluid overload and CHF exacerbation -Careful prn if clinically volume overloaded or congestion on CXR -Continue ventimask Renal: #RILEY on CKD, exacerbated from baseline (Cr 1.3-1.5) but improving. BUN/Cr 63/ 2.2 this AM much improving. Likely 2/2 hypoperfusion in sepsis. -Continue IVF and Lasix -Trend BUN/Cr/UOP FEN -Monitor CMP, Mg, Phos -Replace electrolytes prn PPX: DVT: Xarelto, SCDs GI: PT: Order placed Lines/Drains/Tubes NGT placed 09/03/17 PIV placed 09/03/17 Aterial line placed 09/03/17 Sandoval placed 09/03/18 Disposition: Further ICU care
[2017-09-05 08:09] LABS: BASO % 0.1 % (0-2.0); HEMATOCRIT 39.8 % (35.4-49); HEMOGLOBIN 12.7 GM/dL (11.7-16.9); MCH 23.5 pg (25.7-33.7); MCHC 31.8 g/dl (32.0-35.9); MEAN CELL VOLUME 73.8 fl (80-96); MEAN PLT VOLUME 8.9 fl (7.5-11.1); MONO % 6.2 % (3.8-10.2); NEUT % 90.7 % (42.8-82.8); PLATELET COUNT 157 K/MM3 (134-434); RBC 5.39 M/mm3 (4.00-5.60); RDW 16.3 % (11.9-15.9); WHITE BLOOD COUNT 9.4 K/mm3 (4.0-10.0)
--- NOTE | 2017-09-05 08:43 | PN ---
Progress Note, Physician Chief Complaint: Mouth dry History of Present Illness: Intestinal obstruction,S/P lap Day #2 On NGT - Current Medication List Current Medications: Active Medications Chlorhexidine Gluconate (Hibiclens For Decolonization -) 1 applic TP HS MELISSA Last Admin: 09/04/17 21:16 Dose: 1 applic Hydromorphone HCl (Dilaudid Injection -) 1 mg IVPB Q4H PRN PRN Reason: PAIN Last Admin: 09/04/17 13:40 Dose: 1 mg Mupirocin (Bactroban Ointment (For Decolonization) -) 1 applic NS BID [facility] Stop: 09/09/17 09:59 Last Admin: 09/04/17 21:16 Dose: 1 applic Piperacillin Sod/Tazobactam Sod (Zosyn 3.375gm Ivpb (Pre-Docked)) 3.375 gm IVPB Q8H-IV MELISSA PRN Reason: Protocol Stop: 09/05/17 01:59 Rivaroxaban (Xarelto -) 15 mg PO DAILY@1800 MELISSA Last Admin: 09/04/17 20:28 Dose: 15 mg - Objective Vital Signs: Vital Signs Temperature 98.6 F 09/05/17 02:00 Pulse Rate 104 H 09/05/17 07:34 Respiratory Rate 18 09/05/17 07:34 Blood Pressure 109/76 09/05/17 07:34 O2 Sat by Pulse Oximetry (%) 97 09/05/17 07:35 Constitutional: Yes: Anxious Eyes: Yes: WNL HENT: Yes: WNL Neck: Yes: WNL Cardiovascular: Yes: Tachycardia Respiratory: Yes: Regular Gastrointestinal: Yes: Hypoactive Bowel Sounds ...Rectal Exam: Yes: Deferred Genitourinary: Yes: Jaime Present Musculoskeletal: Yes: Muscle Weakness Edema: No Peripheral Pulses WNL: Yes Wound/Incision: Yes: Clean/Dry Neurological: Yes: Alert Psychiatric: Yes: Alert Labs: CBC, BMP 09/05/17 05:10 09/05/17 05:10 INR, PTT INR 1.93 (0.82-1.09) H 09/05/17 05:10 Assessment/Plan Sable continue ICU care SALINA Azar
[2017-09-05] MEDS: MUPIROCIN 2% TOPICAL OINTMENT FOR DECOLONIZATION NS SCH ×2 (09:17→21:03)
--- NOTE | 2017-09-05 09:40 | PN ---
Progress Note (short form) - Note Progress Note: ID Consult dictated POD #1 Exploratory laparotomy/ PARDEEP Leukocytosis/ Lactic acidosis R/O sepsis Renal failure Valvular heart disease Await c/s Empiric zosyn/ flagyl ICU monitoring Critical care time 35min
--- NOTE | 2017-09-05 10:30 | CONS ---
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 HISTORY OF PRESENT ILLNESS: He had developed acute onset of left-sided paraumbilical abdominal pain, nausea, and vomiting on Monday, September 01, 2017. He had been unable to keep anything down. He had presented to his primary care physician and was prescribed Zofran. Despite this measure, he continued to have abdominal pain, nausea, and vomiting. He presented to the emergency room where a CAT scan of the abdomen and pelvis was performed and showed evidence of high-grade small-bowel obstruction with markedly distended, fluid-filled loops of small bowel; moderately distended stomach; and pneumatosis intestinalis. His course was complicated by hypotension, lactic acidosis, and leukocytosis. He was taken to the operating room on September 04, 2017, where an exploratory laparotomy and lysis of adhesions were performed. His hospital course has been complicated by azotemia. He was empirically treated with Zosyn and vancomycin. At the present time, he is awake and alert. He has an NG tube in place. He complains of abdominal discomfort and dry mouth. He has been afebrile. White blood cell count is now normal. Cultures are pending. PAST MEDICAL HISTORY: Positive for valvular heart disease. Patient was scheduled for a cardiac catheterization and aortic and mitral valve repairs. History of mitral regurgitation, aortic regurgitation, coronary artery disease, congestive heart failure, atrial fibrillation, hypertension, hyperlipidemia, diabetes mellitus, chronic kidney disease, pulmonary hypertension, history of subdural hematoma approximately 6 months ago, colonic polyps. PAST SURGICAL HISTORY: Status post cholecystectomy and ventral hernia repair. ALLERGIES: No known allergies. MEDICATIONS: Zofran, metoprolol, Lipitor, allopurinol, Xarelto, tamsulosin. ALLERGIES: ELIQUIS (rash). 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 He is a nonsmoker, nondrinker. Lives at home with his family members. SYSTEMS REVIEW: Neurologic: No loss of consciousness, seizure activity, or focal weakness. Positive history of recent subdural hematoma. Cardiac: Positive for valvular heart disease and atrial fibrillation. Respiratory: Negative cough or sputum production. Gastrointestinal: As per HPI. Genitourinary: Negative for urinary tract infection. LABORATORY DATA: White count on admission 18,000, presently 9.4; hematocrit 39.8; platelet count 157. BUN 63, creatinine 2.2. Lactic acid 2.5. Urine leukocyte esterase negative. Blood and urine cultures are pending. Chest x-ray negative for acute infiltrate. PHYSICAL EXAMINATION: General: He is awake and alert. He is in no acute distress. NG tube is in place. Vital Signs: Temperature 98.6; blood pressure 112/68; pulse 116, irregular; respirations 18 per minute. HEENT: Sclerae are anicteric. NG tube in place. Dry mucous membranes. Heart: Sounds irregular S1, S2 with a 2/6 pansystolic murmur. Lungs: Diminished breath sounds at the bases bilaterally. Abdomen: Distended, tympanitic, mild diffuse tenderness. There is a midline surgical wound with vishnu in place. Extremities: Edema 1+. Negative Homans sign. Genitourinary: Sandoval catheter is in place. Urine is not grossly purulent. IMPRESSION: 1. Postoperative day number 1 exploratory laparotomy and lysis of adhesions. 2. Status post high-grade small-bowel obstruction. 3. Leukocytosis/lactic acidosis, possible sepsis secondary to gastrointestinal focus. 4. Renal failure. 5. Valvular heart disease. RECOMMENDATIONS: Await culture results. Empiric antibiotic coverage of bowel pathogens with Zosyn and Flagyl pending sepsis workup. Continue ICU monitoring and supportive measures. Further recommendations pending cultures. Prognosis is guarded. CRITICAL CARE TIME SPENT: Thirty-five minutes reviewing chart, reviewing x-rays, and examining patient. Will follow. Thank you for the kind referral. MARVIN HENDRICKS M.D. [id number]
--- NOTE | 2017-09-05 11:00 | PN ---
Progress Note, Physician Chief Complaint: Events noted Remains in ICU Underlying atrial fibrillation with RVR History of Present Illness: Patient was seen and examined. Awake and alert. Chart was reviewed Incisional pain. AF with RVR. Back on Xarelto Post op laparotomy - Current Medication List Current Medications: Active Medications Chlorhexidine Gluconate (Hibiclens For Decolonization -) 1 applic TP HS MELISSA Last Admin: 09/04/17 21:16 Dose: 1 applic Hydromorphone HCl (Dilaudid Injection -) 1 mg IVPB Q4H PRN PRN Reason: PAIN Last Admin: 09/04/17 13:40 Dose: 1 mg Piperacillin Sod/Tazobactam (Sod 3.375 gm/ Dextrose) 50 mls @ 100 mls/hr IVPB Q8H-IV MELISSA PRN Reason: Protocol Last Admin: 09/05/17 10:26 Dose: 100 mls/hr Metronidazole (Flagyl 250mg Premixed Ivpb -) 250 mg in 50 mls @ 50 mls/hr IVPB Q8H-IV MELISSA Last Admin: 09/05/17 10:25 Dose: 50 mls/hr Mupirocin (Bactroban Ointment (For Decolonization) -) 1 applic NS BID MELISSA Stop: 09/09/17 09:59 Last Admin: 09/05/17 09:17 Dose: 1 applic Rivaroxaban (Xarelto -) 15 mg PO DAILY@1800 MELISSA Last Admin: 09/04/17 20:28 Dose: 15 mg - Objective Vital Signs: Vital Signs Temperature 98.6 F 09/05/17 10:00 Pulse Rate 116 H 09/05/17 10:00 Respiratory Rate 18 09/05/17 10:00 Blood Pressure 112/68 09/05/17 10:00 O2 Sat by Pulse Oximetry (%) 97 09/05/17 07:35 Eyes: Yes: PERRL Neck: Yes: Supple Cardiovascular: Yes: Tachycardia, Pulse Irregular, Murmur (3/6 SM apex and LSB) , S1, S2 Respiratory: Yes: Diminished Gastrointestinal: Yes: Other (Post op) Edema: No Labs: CBC, BMP 09/05/17 05:10 09/05/17 05:10 INR, PTT INR 1.93 (0.82-1.09) H 09/05/17 05:10 Problem List - Problems (1) Tricuspid valve regurgitation Code(s): I07.1 - RHEUMATIC TRICUSPID INSUFFICIENCY Qualifiers: Cardiac valve disease etiology: nonrheumatic Qualified Code(s): I36.1 - Nonrheumatic tricuspid (valve) insufficiency (2) Abdominal pain Code(s): R10.9 - UNSPECIFIED ABDOMINAL PAIN Qualifiers: Abdominal location: left upper quadrant Qualified Code(s): R10.12 - Left upper quadrant pain (3) [id number] kidney injury Code(s): N17.9 - ACUTE KIDNEY FAILURE, UNSPECIFIED; N18.9 - CHRONIC KIDNEY DISEASE, UNSPECIFIED Qualifiers: Chronic kidney disease stage: unspecified stage (4) Lactic acidosis Code(s): E87.2 - ACIDOSIS (5) Pneumatosis intestinalis of small intestine Code(s): K63.89 - OTHER SPECIFIED DISEASES OF INTESTINE (6) Sepsis Code(s): A41.9 - SEPSIS, UNSPECIFIED ORGANISM Qualifiers: Sepsis type: sepsis due to unspecified organism Qualified Code(s): A41.9 - Sepsis, unspecified organism (7) Small bowel obstruction Code(s): K56.609 - UNSP INTESTNL OBST, UNSP TO PARTIAL VERSUS COMPLETE OBST (8) Status post exploratory laparotomy Code(s): Z98.890 - OTHER SPECIFIED POSTPROCEDURAL STATES (9) Acute on chronic diastolic (congestive) heart failure Code(s): I50.33 - ACUTE ON CHRONIC DIASTOLIC (CONGESTIVE) HEART FAILURE (10) Hyperlipidemia Code(s): E78.5 - HYPERLIPIDEMIA, UNSPECIFIED Qualifiers: Hyperlipidemia type: pure hypercholesterolemia Qualified Code(s): E78.00 - Pure hypercholesterolemia, unspecified (11) Moderate aortic regurgitation Code(s): I35.1 - NONRHEUMATIC AORTIC (VALVE) INSUFFICIENCY (12) Moderate to severe mitral regurgitation Code(s): I34.0 - NONRHEUMATIC MITRAL (VALVE) INSUFFICIENCY (13) Persistent atrial fibrillation Code(s): I48.1 - PERSISTENT ATRIAL FIBRILLATION (14) T2DM (type 2 diabetes mellitus) Code(s): E11.9 - TYPE 2 DIABETES MELLITUS WITHOUT COMPLICATIONS Qualifiers: Diabetes mellitus complication detail: with diabetic retinopathy Assessment/Plan 1. Small intestinal obstruction, secondary to a band of adhesions s/p exploratory laparotomy, lysis of adhesions, release of intestinal obstruction 2. Chronic diastolic failure with underlying moderate - severe MR, moderate AR, TR 3. CAD, angina pectoris 4. Persistent atrial fibrillation [id number] on NOAC 5. HTN/HCVD 6. Type 2 DM 7. Hyperlipidemia 8. Acute on CKD due to hemodynamic alterations 9. Lactic acidosis and leukocytosis PLAN: 1. Monitor renal function and electrolytes. Continue hydration 2. Resume Diovan 80 mg qd and Lopressor 50 mg bid as cleared by Surgery. Hold Aldactone until further instruction 3. IV Lopressor as needed for rate-control in meantime 4. Resumed Xarelto 5. Mitral and tricuspid valve repair/replacement postponed until recovery from this admission Further plans are to follow José Luis Thakkar MD
[2017-09-05] MEDS: METOPROLOL TARTRATE 50 MG TABLET (FP) PO SCH ×2 (11:55→21:03)
[2017-09-05] MEDS ORDERED: DEXTROSE 5%-0.45% SALINE 1,000 ML IV SCH ×2 (12:15→22:05)
--- NOTE | 2017-09-05 12:47 | PN ---
Teaching Attending Note Name of Resident: Evonne Isabelle ATTENDING PHYSICIAN STATEMENT I saw and evaluated the patient. I reviewed the resident's note and discussed the case with the resident. I agree with the resident's findings and plan as documented. SUBJECTIVE: Pt seen and examined in the ICU. Pain controlled. +nonproductive cough. NGT removed this AM. No flatus or bowel movement yet. +burping. OBJECTIVE: Last Vital Signs Temp Pulse Resp BP Pulse Ox 98.6 F 126 H 18 110/72 97 09/05/17 10:00 09/05/17 12:00 09/05/17 12:00 09/05/17 12:00 09/05/17 07:35 Intake & Output 09/02/17 09/03/17 09/04/17 09/05/17 23:59 23:59 23:59 23:59 Intake Total 2600 220 50 Output Total 245 1750 1000 Balance 3935 1530 -950 Weight 83.915 kg 85.91 kg 85.91 kg Gen: mildly tachypneic with exertion Heart: tachycardic, irregular Lung: decreased breath sounds at the bases Abd: soft, nontender, no bowel sounds appreciated Ext: no edema CBC, BMP 09/05/17 05:10 09/05/17 05:10 Active Medications Chlorhexidine Gluconate (Hibiclens For Decolonization -) 1 applic TP HS MELISSA Last Admin: 09/04/17 21:16 Dose: 1 applic Hydromorphone HCl (Dilaudid Injection -) 1 mg IVPB Q4H PRN PRN Reason: PAIN Last Admin: 09/04/17 13:40 Dose: 1 mg Piperacillin Sod/Tazobactam (Sod 3.375 gm/ Dextrose) 50 mls @ 100 mls/hr IVPB Q8H-IV MELISSA PRN Reason: Protocol Last Admin: 09/05/17 10:26 Dose: 100 mls/hr Metronidazole (Flagyl 250mg Premixed Ivpb -) 250 mg in 50 mls @ 50 mls/hr IVPB Q8H-IV MELISSA Last Admin: 09/05/17 10:25 Dose: 50 mls/hr Dextrose/Sodium Chloride (D5-1/2ns -) 1,000 mls @ 50 mls/hr IV ASDIR MELISSA Last Admin: 09/05/17 12:24 Dose: 50 mls/hr Metoprolol Tartrate (Lopressor -) 50 mg PO BID [facility] Last Admin: 09/05/17 11:55 Dose: 50 mg Mupirocin (Bactroban Ointment (For Decolonization) -) 1 applic NS BID [facility] Stop: 09/09/17 09:59 Last Admin: 09/05/17 09:17 Dose: 1 applic Rivaroxaban (Xarelto -) 15 mg PO DAILY@1800 [facility] Last Admin: 09/04/17 20:28 Dose: 15 mg ASSESSMENT AND PLAN: Small Bowel Obstruction/Pneumotosis s/p ex-lap/PARDEEP Sepsis Acute on Chronic Renal Failure Lactic Acidosis resolving Atrial fibrillation LV Diastolic Dysfunction Mitral Regurgitation CAD HTN DM Hypercholesterolemia - continue antibiotics - IVF - monitor urine output, creatinine - rate control - continue anticoagulation - pain control - incentive spirometry - OOB to chair - rehab/PT - await return of bowel function - continue ICU monitoring - discussed with family at bedside critical care time spent in reviewing chart, evaluating patient and formulating plan 35 min
[2017-09-05] MEDS ORDERED: PT OWN MED DRAWER 7, Y5N ONE ×3 (16:46→17:10)
[2017-09-05] MEDS: RIVAROXABAN 15 MG TABLET PO SCH (17:11)
[2017-09-05] MEDS ORDERED: SODIUM CHLORIDE 1,000 ML IV STA ×2 (20:20→22:18)
[2017-09-05] MEDS: CHLORHEXIDINE GLUCONATE 4% CLEANSER FOR DECOLONIZATION TP SCH (21:03)
[2017-09-06 01:18] LABS: HEMATOCRIT 32.2 % (35.4-49); HEMOGLOBIN 10.2 GM/dL (11.7-16.9); MCH 23.6 pg (25.7-33.7); MCHC 31.6 g/dl (32.0-35.9); MEAN CELL VOLUME 74.6 fl (80-96); MEAN PLT VOLUME 8.1 fl (7.5-11.1); PLATELET COUNT 154 K/MM3 (134-434); RBC 4.31 M/mm3 (4.00-5.60); RDW 16.4 % (11.9-15.9); WHITE BLOOD COUNT 6.6 K/mm3 (4.0-10.0)
[2017-09-06] MEDS ORDERED: PT OWN MED DRAWER 7, Y5N ONE ×6 (01:45→17:01)
[2017-09-06] MEDS: PIPERACILLIN/TAZOB 3.375 GM 3.375 GM in DEXTROSE 5%-WATER - 50 ML IVPB SCH ×3 (01:48→17:00)
[2017-09-06 07:04] LABS: HEMOGLOBIN 9.7 GM/dL (11.7-16.9); MCH 23.3 pg (25.7-33.7); MCHC 31.2 g/dl (32.0-35.9); MEAN CELL VOLUME 74.5 fl (80-96); MEAN PLT VOLUME 8.5 fl (7.5-11.1); PLATELET COUNT 147 K/MM3 (134-434); RBC 4.16 M/mm3 (4.00-5.60); RDW 16.3 % (11.9-15.9); WHITE BLOOD COUNT 6.9 K/mm3 (4.0-10.0)
[2017-09-06 07:26] LABS: INR 2.16 (0.82-1.09); PROTHROMBIN TIME (PATIENT) 24.4 SEC (9.98-11.88)
[2017-09-06 07:28] LABS: ACTIVATED PTT 36.7 SECONDS (26.9-34.4)
[2017-09-06 08:00] LABS: ANION GAP 11 (8-16); BLOOD UREA NITROGEN 90 mg/dL (7-18); CALCIUM 7.1 mg/dL (8.5-10.1); CHLORIDE 101 mmol/L (98-107); CO2 31 mmol/L (21-32); CREATININE 1.8 mg/dL (0.7-1.3); GLUCOSE,RANDOM 191 mg/dL (74-106); MAGNESIUM 2.7 mg/dL (1.8-2.4); PHOSPHOROUS 1.7 mg/dL (2.5-4.9); POTASSIUM 3.4 mmol/L (3.5-5.1); SGOT/AST 16 U/L (15-37); SGPT/ALT 13 U/L (12-78); SODIUM 143 mmol/L (136-145)
[2017-09-06 08:01] LABS: ALK PHOS 31 U/L (45-117); BILIRUBIN,TOTAL 0.9 mg/dL (0.2-1.0); TOT PROT 4.1 g/dl (6.4-8.2)
[2017-09-06] MEDS ORDERED: POTASSIUM PHOSPHATE 30 MM in SODIUM CHLORIDE 250 ML IVPB ONE (09:00)
[2017-09-06] MEDS: DEXTROSE 5%-0.45% SALINE 1,000 ML IV SCH (09:29)
[2017-09-06] MEDS: METOPROLOL TARTRATE 50 MG TABLET (FP) PO SCH (09:30)
--- NOTE | 2017-09-06 09:31 | PN ---
Progress Note, Physician Chief Complaint: Mouth dry History of Present Illness: No new complaints - Current Medication List Current Medications: Active Medications Chlorhexidine Gluconate (Hibiclens For Decolonization -) 1 applic TP HS [facility] Last Admin: 09/05/17 21:03 Dose: 1 applic Hydromorphone HCl (Dilaudid Injection -) 1 mg IVPB Q4H PRN PRN Reason: PAIN Last Admin: 09/04/17 13:40 Dose: 1 mg Piperacillin Sod/Tazobactam (Sod 3.375 gm/ Dextrose) 50 mls @ 100 mls/hr IVPB Q8H-IV MELISSA PRN Reason: Protocol Last Admin: 09/06/17 01:48 Dose: 100 mls/hr Metronidazole (Flagyl 250mg Premixed Ivpb -) 250 mg in 50 mls @ 50 mls/hr IVPB Q8H-IV MELISSA Last Admin: 09/06/17 01:48 Dose: 50 mls/hr Potassium Phosphate 30 mm/ (Sodium Chloride) 260 mls @ 65 mls/hr IVPB ONCE ONE PRN Reason: 30 MM/4 HR Stop: 09/06/17 12:59 Dextrose/Sodium Chloride (D5-1/2ns -) 1,000 mls @ 100 mls/hr IV ASDIR [facility] Metoprolol Tartrate (Lopressor -) 50 mg PO BID [facility] Last Admin: 09/05/17 21:03 Dose: Not Given Mupirocin (Bactroban Ointment (For Decolonization) -) 1 applic NS BID [facility] Stop: 09/09/17 09:59 Last Admin: 09/05/17 21:03 Dose: 1 applic Rivaroxaban (Xarelto -) 15 mg PO DAILY@1800 [facility] Last Admin: 09/05/17 17:11 Dose: 15 mg - Objective Vital Signs: Vital Signs Temperature 98.0 F 09/06/17 06:00 Pulse Rate 98 H 09/06/17 08:00 Respiratory Rate 18 09/06/17 08:00 Blood Pressure 96/54 09/06/17 08:00 O2 Sat by Pulse Oximetry (%) 100 09/05/17 21:09 Constitutional: Yes: Calm, Mild Distress Eyes: Yes: WNL HENT: Yes: WNL Neck: Yes: WNL Cardiovascular: Yes: Tachycardia Respiratory: Yes: WNL Gastrointestinal: Yes: Other (No BS) ...Rectal Exam: Yes: Deferred Genitourinary: Yes: WNL Breast(s): Yes: WNL Musculoskeletal: Yes: Muscle Weakness Edema: No Integumentary: Yes: WNL Neurological: Yes: Alert Psychiatric: Yes: Alert Labs: CBC, BMP 09/06/17 06:45 09/06/17 06:45 INR, PTT INR 2.16 (0.82-1.09) H 09/06/17 06:45
--- NOTE | 2017-09-06 10:44 | PN ---
Progress Note, Physician History of Present Illness: Awake, weak appearing Hard of hearing Offers no complaints No c/o abdominal pain +melanotic BM reported Hypotensive overnight Afebrile WBC WNL Cultures negative - Current Medication List Current Medications: Active Medications Chlorhexidine Gluconate (Hibiclens For Decolonization -) 1 applic TP HS [facility] Last Admin: 09/05/17 21:03 Dose: 1 applic Hydromorphone HCl (Dilaudid Injection -) 1 mg IVPB Q4H PRN PRN Reason: PAIN Last Admin: 09/04/17 13:40 Dose: 1 mg Piperacillin Sod/Tazobactam (Sod 3.375 gm/ Dextrose) 50 mls @ 100 mls/hr IVPB Q8H-IV [facility] PRN Reason: Protocol Last Admin: 09/06/17 09:27 Dose: 100 mls/hr Metronidazole (Flagyl 250mg Premixed Ivpb -) 250 mg in 50 mls @ 50 mls/hr IVPB Q8H-IV [facility] Last Admin: 09/06/17 09:28 Dose: 50 mls/hr Potassium Phosphate 30 mm/ (Sodium Chloride) 260 mls @ 65 mls/hr IVPB ONCE ONE PRN Reason: 30 MM/4 HR Stop: 09/06/17 12:59 Last Admin: 09/06/17 09:28 Dose: 65 mls/hr Dextrose/Sodium Chloride (D5-1/2ns -) 1,000 mls @ 100 mls/hr IV ASDIR [facility] Last Admin: 09/06/17 09:29 Dose: 100 mls/hr Metoprolol Tartrate (Lopressor -) 50 mg PO BID [facility] Last Admin: 09/06/17 09:30 Dose: 50 mg Mupirocin (Bactroban Ointment (For Decolonization) -) 1 applic NS BID [facility] Stop: 09/09/17 09:59 Last Admin: 09/05/17 21:03 Dose: 1 applic Pantoprazole Sodium (Protonix Iv) 40 mg IVPUSH DAILY [facility] Rivaroxaban (Xarelto -) 15 mg PO DAILY@1800 [facility] Last Admin: 09/05/17 17:11 Dose: 15 mg - Objective Vital Signs: Vital Signs Temperature 98.3 F 09/06/17 10:00 Pulse Rate 96 H 09/06/17 10:00 Respiratory Rate 18 09/06/17 10:00 Blood Pressure 82/57 09/06/17 10:00 O2 Sat by Pulse Oximetry (%) 100 09/06/17 09:00 Constitutional: Yes: No Distress Eyes: Yes: Conjunctiva Clear Cardiovascular: Yes: Regular Rate and Rhythm, S1, S2 Respiratory: Yes: Diminished Gastrointestinal: Yes: Normal Bowel Sounds, Soft, Tenderness, Other (sl distended soft mild diffuse tenderness vishnu in place) Extremities: No: Calf Tenderness Edema: No Labs: CBC, BMP 09/06/17 06:45 09/06/17 06:45 INR, PTT INR 2.16 (0.82-1.09) H 09/06/17 06:45 Assessment/Plan POD # 2 exploratory laparotomy/ SBO Leukocytosis- resolved Lactic acidosis- resolved Renal failure-improved Valvular heart disease Await cultures Continue empiric zosyn/ flagyl
[2017-09-06] MEDS ORDERED: SODIUM CHLORIDE 1,000 ML IV STA ×2 (11:58→17:53)
[2017-09-06] MEDS: MUPIROCIN 2% TOPICAL OINTMENT FOR DECOLONIZATION NS SCH ×2 (12:26→22:00)
[2017-09-06] MEDS: PANTOPRAZOLE SODIUM 40 MG VIAL IVPUSH SCH (12:26)
--- NOTE | 2017-09-06 13:03 | PN ---
Teaching Attending Note Name of Resident: Sheba Mcmahan ATTENDING PHYSICIAN STATEMENT I saw and evaluated the patient. I reviewed the resident's note and discussed the case with the resident. I agree with the resident's findings and plan as documented. SUBJECTIVE: Pt seen and examined in the ICU. Borderline hypotensive this AM. Dark bowel movement overnight. Passing flatus. OBJECTIVE: Last Vital Signs Temp Pulse Resp BP Pulse Ox 98.3 F 104 H 18 94/56 100 09/06/17 10:00 09/06/17 12:00 09/06/17 12:00 09/06/17 12:00 09/06/17 09:00 Intake & Output 09/03/17 09/04/17 09/05/17 09/06/17 23:59 23:59 23:59 23:59 Intake Total 2600 220 1150 1400 Output Total 245 1750 1650 700 Balance 2355 -1530 -500 700 Weight 83.915 kg 85.91 kg 85.91 kg 87.906 kg Gen: somnolent but arousable Heart: tachycardic, regular Lung: decreased breath sounds at the bases Abd: soft, appropriately tender, +bowel sounds Ext: no edema CBC, BMP 09/06/17 06:45 09/06/17 06:45 Active Medications Chlorhexidine Gluconate (Hibiclens For Decolonization -) 1 applic TP HS [facility] Last Admin: 09/05/17 21:03 Dose: 1 applic Hydromorphone HCl (Dilaudid Injection -) 1 mg IVPB Q4H PRN PRN Reason: PAIN Last Admin: 09/04/17 13:40 Dose: 1 mg Piperacillin Sod/Tazobactam (Sod 3.375 gm/ Dextrose) 50 mls @ 100 mls/hr IVPB Q8H-IV [facility] PRN Reason: Protocol Last Admin: 09/06/17 09:27 Dose: 100 mls/hr Metronidazole (Flagyl 250mg Premixed Ivpb -) 250 mg in 50 mls @ 50 mls/hr IVPB Q8H-IV [facility] Last Admin: 09/06/17 09:28 Dose: 50 mls/hr Dextrose/Sodium Chloride (D5-1/2ns -) 1,000 mls @ 100 mls/hr IV ASDIR [facility] Last Admin: 09/06/17 09:29 Dose: 100 mls/hr Metoprolol Tartrate (Lopressor -) 50 mg PO BID [facility] Last Admin: 09/06/17 09:30 Dose: 50 mg Mupirocin (Bactroban Ointment (For Decolonization) -) 1 applic NS BID [facility] Stop: 09/09/17 09:59 Last Admin: 09/06/17 12:26 Dose: 1 applic Pantoprazole Sodium (Protonix Iv) 40 mg IVPUSH DAILY [facility] Last Admin: 09/06/17 12:26 Dose: 40 mg Rivaroxaban (Xarelto -) 15 mg PO DAILY@1800 [facility] Last Admin: 09/05/17 17:11 Dose: 15 mg ASSESSMENT AND PLAN: Small Bowel Obstruction/Pneumotosis s/p ex-lap/PARDEEP Sepsis Acute on Chronic Renal Failure Lactic Acidosis resolving Atrial fibrillation LV Diastolic Dysfunction Mitral Regurgitation CAD HTN DM Hypercholesterolemia - continue antibiotics - IVF - replete lytes - monitor urine output, creatinine - rate control - continue anticoagulation - monitor H/H - pain control - incentive spirometry - OOB to chair - rehab/PT - PO per surgery - continue ICU monitoring - discussed with family at bedside critical care time spent in reviewing chart, evaluating patient and formulating plan 35 min
--- NOTE | 2017-09-06 15:03 | PN ---
Physical Exam: SUBJECTIVE: Patient seen and examined at bed side this morning. Feels better than yesterday. Pain controlled with meds. Denies chest pain, sob, cough, palpitation, nausea or vomiting. Overnight, had three bowel movements-black in color as per RN. No bowel movements this morning. OBJECTIVE: Vital Signs Period Temp Pulse Resp BP Sys/Gill Pulse Ox Last 24 Hr 97.8 F-98.6 F 77-106 17-23 69-98/43-85 100-100 GENERAL: The patient is awake, alert, and fully oriented, in no acute distress. HEAD: Normal with no signs of trauma. EYES: PERRL, extraocular movements intact, sclera anicteric, conjunctiva clear. No ptosis. ENT: Ears normal, nares patent, oropharynx clear without exudates, moist mucous membranes. NECK: Trachea midline, full range of motion, supple. LUNGS: Breath sounds equal, clear to auscultation bilaterally, no wheezes, no crackles, no accessory muscle use. HEART: Regular rate and rhythm, S1, S2 without murmur, rub or gallop. ABDOMEN: Soft, nontender, nondistended, normoactive bowel sounds, no guarding, no rebound, no hepatosplenomegaly, no masses. EXTREMITIES: 2+ pulses, warm, well-perfused, no edema. NEUROLOGICAL: Cranial nerves II through XII grossly intact. Normal speech, gait not observed. PSYCH: Normal mood, normal affect. SKIN: Warm, dry, normal turgor, no rashes or lesions noted Laboratory Results - last 24 hr 09/06/17 09/06/17 09/06/17 01:00 06:45 06:45 WBC 6.6 6.9 RBC 4.31 D 4.16 Hgb 10.2 L D 9.7 L Hct 32.2 L D 31.0 L MCV 74.6 L 74.5 L MCH 23.6 L 23.3 L MCHC 31.6 L 31.2 L RDW 16.4 H 16.3 H Plt Count 154 147 MPV 8.1 8.5 PT with INR INR PTT (Actin FS) Sodium 143 Potassium 3.4 L Chloride 101 Carbon Dioxide 31 Anion Gap 11 BUN 90 H D Creatinine 1.8 H Creat Clearance w eGFR 36.30 Random Glucose 191 H D Lactic Acid Calcium 7.1 L Phosphorus 1.7 L D Magnesium 2.7 H Total Bilirubin 0.9 D AST 16 D ALT 13 D Alkaline Phosphatase 31 L D Total Protein 4.1 L D Albumin 2.0 L D Stool Occult Blood 09/06/17 09/06/17 09/06/17 06:45 06:45 11:00 WBC RBC Hgb Hct MCV MCH MCHC RDW Plt Count MPV PT with INR 24.40 H INR 2.16 H PTT (Actin FS) 36.7 H Sodium Potassium Chloride Carbon Dioxide Anion Gap BUN Creatinine Creat Clearance w eGFR Random Glucose Lactic Acid 2.0 Calcium Phosphorus Magnesium Total Bilirubin AST ALT Alkaline Phosphatase Total Protein Albumin Stool Occult Blood Positive Active Medications Generic Name Dose Route Start Last Admin Trade Name Freq PRN Reason Stop Dose Admin Chlorhexidine Gluconate 1 applic 09/04/17 22:00 09/05/17 21:03 Hibiclens For Decolonization - TP 1 applic HS [facility] Administration Hydromorphone HCl 1 mg 09/04/17 01:11 09/04/17 13:40 Dilaudid Injection - IVPB 1 mg Q4H PRN Administration PAIN Piperacillin Sod/Tazobactam 50 mls @ 100 mls/hr 09/05/17 10:00 09/06/17 09:27 Sod 3.375 gm/ Dextrose IVPB 100 mls/hr Q8H-IV MELISSA Administration Protocol Metronidazole 250 mg in 50 mls @ 50 mls/hr 09/05/17 10:00 09/06/17 09:28 Flagyl 250mg Premixed Ivpb - IVPB 50 mls/hr Q8H-IV [facility] Administration Dextrose/Sodium Chloride 1,000 mls @ 100 mls/hr 09/06/17 08:55 09/06/17 09:29 D5-1/2ns - IV 100 mls/hr ASDIR [facility] Administration Metoprolol Tartrate 50 mg 09/05/17 11:15 09/06/17 09:30 Lopressor - PO 50 mg BID [facility] Administration Mupirocin 1 applic 09/04/17 10:00 09/06/17 12:26 Bactroban Ointment (For Decolonization) - NS 09/09/17 09:59 1 applic BID [facility] Administration Pantoprazole Sodium 40 mg 09/06/17 10:00 09/06/17 12:26 Protonix Iv IVPUSH 40 mg DAILY [facility] Administration Rivaroxaban 15 mg 09/04/17 20:00 09/05/17 17:11 Xarelto - PO 15 mg DAILY@1800 [facility] Administration ASSESSMENT/PLAN: Patient is a 82 year old male, with h/o CAD (scheduled for cardiac cath and valve repair), CHF, mitral stenosis, AFib (on Xarelto), HTN, HLD, DM, CKD, subdural hematoma (about 6 months ago), presented to ED 09/03 for intermittent vomiting since about 08/31, found to have SBO and pneumatosis intestinalist on CT , now s/p uncomplicated ex-lap with lysis of adhesions and release of bowel. # Neurology Awake, alert, no active issues. # GI: SBO with pneumatosis intestinalis s/p uncomplicated ex-lap with lysis of adhesions and release of bowel POD 2 Pain management with Dilaudid Had three bowel movement with melena overnight, stool occult positive, H/H stable so will continue Xarelto IV Metronidazole and IV Zosyn started since 09/05/17 Starting full liquid diet. # ID: Sepsis, improving. Was hypotensive this morning, gave 1 L of IV NS this am and BP improved. Continue Zosyn and IV Metron # CV: A-fib on Xarelto, chronic. Metoprolol for rate control Continue Xarelto # Pulmonary: Oxygen PRN Incentive Spirometer. # Renal: RILEY on CKD, creatinine improving Continue IVF D5-1/2 NS @ 100mls/hr # FEN IV D5-1/2 NS @ 100mls/hr Electrolytes: Hypokalemia and Hypophosphatemia, repleted with IV Kphos. will repeat in AM. Starting full liquids from today. # Prophylaxis For DVT: Already on Xarelto For GI: On Protonix 40 mg IV Daily # OOB to chair if he tolerates # Code Status: Full Code Illness, Investigation and Plan of care explained to the patient and family. They verbalized understanding. Case discussed with Dr. Gonzalez.
--- NOTE | 2017-09-06 15:15 | PN ---
Progress Note, Physician - Current Medication List Current Medications: Active Medications Chlorhexidine Gluconate (Hibiclens For Decolonization -) 1 applic TP HS [facility] Last Admin: 09/05/17 21:03 Dose: 1 applic Hydromorphone HCl (Dilaudid Injection -) 1 mg IVPB Q4H PRN PRN Reason: PAIN Last Admin: 09/04/17 13:40 Dose: 1 mg Piperacillin Sod/Tazobactam (Sod 3.375 gm/ Dextrose) 50 mls @ 100 mls/hr IVPB Q8H-IV [facility] PRN Reason: Protocol Last Admin: 09/06/17 09:27 Dose: 100 mls/hr Metronidazole (Flagyl 250mg Premixed Ivpb -) 250 mg in 50 mls @ 50 mls/hr IVPB Q8H-IV [facility] Last Admin: 09/06/17 09:28 Dose: 50 mls/hr Dextrose/Sodium Chloride (D5-1/2ns -) 1,000 mls @ 100 mls/hr IV ASDIR [facility] Last Admin: 09/06/17 09:29 Dose: 100 mls/hr Metoprolol Tartrate (Lopressor -) 50 mg PO BID [facility] Last Admin: 09/06/17 09:30 Dose: 50 mg Mupirocin (Bactroban Ointment (For Decolonization) -) 1 applic NS BID [facility] Stop: 09/09/17 09:59 Last Admin: 09/06/17 12:26 Dose: 1 applic Pantoprazole Sodium (Protonix Iv) 40 mg IVPUSH DAILY [facility] Last Admin: 09/06/17 12:26 Dose: 40 mg Rivaroxaban (Xarelto -) 15 mg PO DAILY@1800 [facility] Last Admin: 09/05/17 17:11 Dose: 15 mg - Objective Vital Signs: Vital Signs Temperature 98.6 F 09/06/17 13:49 Pulse Rate 104 H 09/06/17 13:49 Respiratory Rate 18 09/06/17 13:49 Blood Pressure 94/63 09/06/17 13:49 O2 Sat by Pulse Oximetry (%) 100 09/06/17 09:00 Labs: CBC, BMP 09/06/17 06:45 09/06/17 06:45 INR, PTT INR 2.16 (0.82-1.09) H 02/21/18 06:45 Problem List - Problems (1) Abdominal pain Code(s): R10.9 - UNSPECIFIED ABDOMINAL PAIN Qualifiers: Qualified Code(s): R10.12 - Left upper quadrant pain (2) Small bowel obstruction Code(s): K56.609 - UNSP INTESTNL OBST, UNSP TO PARTIAL VERSUS COMPLETE OBST (3) Heart failure, diastolic, with acute decompensation Code(s): I50.33 - ACUTE ON CHRONIC DIASTOLIC (CONGESTIVE) HEART FAILURE (4) Moderate to severe mitral regurgitation Code(s): I34.0 - NONRHEUMATIC MITRAL (VALVE) INSUFFICIENCY (5) Pneumatosis intestinalis of small intestine Code(s): K63.89 - OTHER SPECIFIED DISEASES OF INTESTINE Assessment/Plan Surgery: Patient is afebrile, alert and oriented. Abdomen is soft , wound is clean. Patient has had bowel movement, ? nathaly. Wbc is normal. Resume oral feeding, with clear liquids.
--- NOTE | 2017-09-06 16:54 | PN ---
Progress Note, Physician History of Present Illness: Tolerating clear liquid diet, dark melanotic stools, rate-controlled afib. - Current Medication List Current Medications: Active Medications Chlorhexidine Gluconate (Hibiclens For Decolonization -) 1 applic TP HS [facility] Last Admin: 09/05/17 21:03 Dose: 1 applic Hydromorphone HCl (Dilaudid Injection -) 1 mg IVPB Q4H PRN PRN Reason: PAIN Last Admin: 09/04/17 13:40 Dose: 1 mg Piperacillin Sod/Tazobactam (Sod 3.375 gm/ Dextrose) 50 mls @ 100 mls/hr IVPB Q8H-IV [facility] PRN Reason: Protocol Last Admin: 09/06/17 09:27 Dose: 100 mls/hr Metronidazole (Flagyl 250mg Premixed Ivpb -) 250 mg in 50 mls @ 50 mls/hr IVPB Q8H-IV [facility] Last Admin: 09/06/17 09:28 Dose: 50 mls/hr Dextrose/Sodium Chloride (D5-1/2ns -) 1,000 mls @ 100 mls/hr IV ASDIR [facility] Last Admin: 09/06/17 09:29 Dose: 100 mls/hr Metoprolol Tartrate (Lopressor -) 50 mg PO BID [facility] Last Admin: 09/06/17 09:30 Dose: 50 mg Mupirocin (Bactroban Ointment (For Decolonization) -) 1 applic NS BID [facility] Stop: 09/09/17 09:59 Last Admin: 09/06/17 12:26 Dose: 1 applic Pantoprazole Sodium (Protonix Iv) 40 mg IVPUSH DAILY [facility] Last Admin: 09/06/17 12:26 Dose: 40 mg Rivaroxaban (Xarelto -) 15 mg PO DAILY@1800 [facility] Last Admin: 09/05/17 17:11 Dose: 15 mg - Objective Vital Signs: Vital Signs Temperature 98.6 F 09/06/17 13:49 Pulse Rate 96 H 09/06/17 15:00 Respiratory Rate 16 09/06/17 15:00 Blood Pressure 80/58 09/06/17 15:00 O2 Sat by Pulse Oximetry (%) 100 09/06/17 09:00 Constitutional: Yes: No Distress, Calm, Thin Neck: Yes: Supple Cardiovascular: Yes: Pulse Irregular, Murmur (2/6 SM) Respiratory: Yes: Regular, Diminished Gastrointestinal: Yes: Normal Bowel Sounds, Soft Edema: No Labs: CBC, BMP 09/06/17 06:45 09/06/17 06:45 INR, PTT INR 2.16 (0.82-1.09) H 09/06/17 06:45 - ....Imaging Chest X-ray: Report Reviewed (Left basilar opacity) X-ray: Report Reviewed (Suspect SBO pattern) Problem List - Problems (1) [id number]-um-[id number] kidney injury Code(s): N17.9 - ACUTE KIDNEY FAILURE, UNSPECIFIED; N18.9 - CHRONIC KIDNEY DISEASE, UNSPECIFIED Qualifiers: Chronic kidney disease stage: unspecified stage (2) Lactic acidosis Code(s): E87.2 - ACIDOSIS (3) Status post exploratory laparotomy Code(s): Z98.890 - OTHER SPECIFIED POSTPROCEDURAL STATES (4) Pneumatosis intestinalis of small intestine Code(s): K63.89 - OTHER SPECIFIED DISEASES OF INTESTINE (5) Small bowel obstruction Code(s): K56.609 - UNSP INTESTNL OBST, UNSP TO PARTIAL VERSUS COMPLETE OBST (6) Hypertensive cardiomyopathy Code(s): I11.9 - HYPERTENSIVE HEART DISEASE WITHOUT HEART FAILURE; I43 - CARDIOMYOPATHY IN DISEASES CLASSIFIED ELSEWHERE Qualifiers: Heart failure presence: without heart failure Qualified Code(s): I11.9 - Hypertensive heart disease without heart failure; I43 - Cardiomyopathy in diseases classified elsewhere; I43 - Cardiomyopathy in diseases classified elsewhere; I43 - Cardiomyopathy in diseases classified elsewhere; I43 - Cardiomyopathy in diseases classified elsewhere (7) Moderate aortic regurgitation Code(s): I35.1 - NONRHEUMATIC AORTIC (VALVE) INSUFFICIENCY (8) Moderate to severe mitral regurgitation Code(s): I34.0 - NONRHEUMATIC MITRAL (VALVE) INSUFFICIENCY (9) Persistent atrial fibrillation Code(s): I48.1 - PERSISTENT ATRIAL FIBRILLATION (10) T2DM (type 2 diabetes mellitus) Code(s): E11.9 - TYPE 2 DIABETES MELLITUS WITHOUT COMPLICATIONS Qualifiers: Diabetes mellitus complication detail: with diabetic retinopathy Assessment/Plan 1. Small intestinal obstruction, secondary to a band of adhesions s/p exploratory laparotomy, lysis of adhesions, release of intestinal obstruction 2. Chronic diastolic failure with underlying moderate - severe MR, moderate AR, TR 3. CAD, angina pectoris 4. Persistent atrial fibrillation [id number] on NOAC 5. HTN/HCVD 6. Type 2 DM 7. Hyperlipidemia 8. Acute on CKD due to hemodynamic alterations improving 9. Lactic acidosis and leukocytosis PLAN: 1. Monitor renal function and electrolytes. Advance diet as tolerated 2. Resume Diovan 80 mg qd and Lopressor 50 mg bid as hemodynamics tolerate 3. IV Lopressor as needed for rate-control in meantime 4. Resumed Xarelto 15 qd, complete empiric abx course 5. Mitral and tricuspid valve repair/replacement postponed until recovery from this admission
[2017-09-06] MEDS: RIVAROXABAN 15 MG TABLET PO SCH ×2 (17:04→19:24)
[2017-09-06] MEDS ORDERED: PHENYLEPHRINE HCL 10 MG/1 ML SINGLE DOSE VIAL ONE (17:37)
[2017-09-06] MEDS: PHENYLEPHRINE HCL 10,000 MCG in DEXTROSE 5%-WATER - 499 ML IV SCH (19:06)
[2017-09-06 19:33] LABS: HEMATOCRIT 22.6 % (35.4-49); MEAN CELL VOLUME 74.2 fl (80-96); MEAN PLT VOLUME 8.9 fl (7.5-11.1); PLATELET COUNT 134 K/MM3 (134-434); RBC 3.04 M/mm3 (4.00-5.60); RDW 16.4 % (11.9-15.9)
--- NOTE | 2017-09-06 21:14 | PN ---
Progress Note (short form) - Note Progress Note: Called by RN to evaluate patient prior to Xarelto administration. RN concerned as patient having worsening black tarry stools BP remaines 70's/50's despite IVF boluses. RN ordered not to give Xarelto. INR already in therapeutic range. STAT CBC sent which showed Hb 7.0 which is about a 3gm drop in H/H. 2 units PRBCs ordered. Attending made aware and agrees with plan. Cardiology Dr. Ryan made aware Started on phenylephrine for hypotension.
[2017-09-07] MEDS ORDERED: PT OWN MED DRAWER 7, Y5N ONE ×4 (01:23→16:20)
[2017-09-07] MEDS: PIPERACILLIN/TAZOB 3.375 GM 3.375 GM in DEXTROSE 5%-WATER - 50 ML IVPB SCH ×3 (02:04→17:04)
[2017-09-07] MEDS: DEXTROSE 5%-0.45% SALINE 1,000 ML IV SCH ×3 (02:05→10:21)
[2017-09-07] MEDS: METOPROLOL TARTRATE 50 MG TABLET (FP) PO SCH ×3 (02:05→22:17)
[2017-09-07] MEDS: PHENYLEPHRINE HCL 10,000 MCG in DEXTROSE 5%-WATER - 499 ML IV SCH ×4 (02:07→17:45)
[2017-09-07] MEDS: CHLORHEXIDINE GLUCONATE 4% CLEANSER FOR DECOLONIZATION TP SCH (02:09)
[2017-09-07] MEDS ORDERED: PHENYLEPHRINE HCL 10 MG/1 ML SINGLE DOSE VIAL ONE ×2 (02:27→21:55)
[2017-09-07 06:08] LABS: HEMATOCRIT 30.1 % (35.4-49); MCH 25.6 pg (25.7-33.7); MCHC 33.2 g/dl (32.0-35.9); MEAN CELL VOLUME 77.1 fl (80-96); MEAN PLT VOLUME 8.7 fl (7.5-11.1); PLATELET COUNT 142 K/MM3 (134-434); RDW 16.8 % (11.9-15.9); WHITE BLOOD COUNT 10.8 K/mm3 (4.0-10.0)
[2017-09-07 06:30] LABS: ANION GAP 9 (8-16); CHLORIDE 103 mmol/L (98-107); CO2 30 mmol/L (21-32); GLUCOSE,RANDOM 206 mg/dL (74-106); MAGNESIUM 2.4 mg/dL (1.8-2.4); POTASSIUM 3.2 mmol/L (3.5-5.1); SODIUM 142 mmol/L (136-145)
[2017-09-07 06:34] LABS: ALK PHOS 28 U/L (45-117); BILIRUBIN,TOTAL 1.3 mg/dL (0.2-1.0); CREATININE 1.8 mg/dL (0.7-1.3); PHOSPHOROUS 1.8 mg/dL (2.5-4.9); SGOT/AST 18 U/L (15-37); SGPT/ALT 16 U/L (12-78); TOT PROT 4.1 g/dl (6.4-8.2)
[2017-09-07 06:50] LABS: BLOOD UREA NITROGEN 105 mg/dL (7-18); CALCIUM 6.6 mg/dL (8.5-10.1)
[2017-09-07] MEDS ORDERED: POTASSIUM CHLORIDE 20 MEQ PREMIX IVPB 100 ML IVPB ONE (07:10)
--- NOTE | 2017-09-07 07:14 | PN ---
Progress Note, Physician Chief Complaint: 24 Hour Events: Passing black tarry stool, Hgb yesterday 7.0, transfused 2 units. This morning call from lab: BUN 105. Mild hypotension which is improving on phenylephrine. Subjective: Patient denies pain or other complaints Intake/Output: In: 5850cc Out: 2300cc Net: 2500cc BM: Yes black tarry x3-4 - Current Medication List Current Medications: Active Medications Chlorhexidine Gluconate (Hibiclens For Decolonization -) 1 applic TP HS [facility] Last Admin: 09/07/17 02:09 Dose: 1 applic Hydromorphone HCl (Dilaudid Injection -) 1 mg IVPB Q4H PRN PRN Reason: PAIN Last Admin: 09/04/17 13:40 Dose: 1 mg Piperacillin Sod/Tazobactam (Sod 3.375 gm/ Dextrose) 50 mls @ 100 mls/hr IVPB Q8H-IV [facility] PRN Reason: Protocol Last Admin: 09/07/17 02:04 Dose: 100 mls/hr Metronidazole (Flagyl 250mg Premixed Ivpb -) 250 mg in 50 mls @ 50 mls/hr IVPB Q8H-IV [facility] Last Admin: 09/07/17 02:04 Dose: 50 mls/hr Dextrose/Sodium Chloride (D5-1/2ns -) 1,000 mls @ 100 mls/hr IV ASDIR [facility] Last Admin: 09/07/17 02:05 Dose: 100 mls/hr Phenylephrine HCl 10,000 mcg/ (Dextrose) 500 mls @ 15 mls/hr IV TITR [facility]ELISSA; 5 MCG /MIN PRN Reason: Protocol Last Titration: 09/07/17 06:53 Dose: 26.6 mcg/min, 79.8 mls/hr Metoprolol Tartrate (Lopressor -) 50 mg PO BID [facility] Last Admin: 09/07/17 02:05 Dose: Not Given Mupirocin (Bactroban Ointment (For Decolonization) -) 1 applic NS BID [facility] Stop: 09/09/17 09:59 Last Admin: 09/06/17 22:00 Dose: 1 applic Pantoprazole Sodium (Protonix Iv) 40 mg IVPUSH DAILY [facility] Last Admin: 09/06/17 12:26 Dose: 40 mg Rivaroxaban (Xarelto -) 15 mg PO DAILY@1800 [facility] Last Admin: 09/06/17 19:24 Dose: Not Given - Objective Vital Signs: Vital Signs Temperature 97.8 F 09/06/17 23:00 Pulse Rate 91 H 09/07/17 06:53 Respiratory Rate 16 09/07/17 05:00 Blood Pressure 86/46 09/07/17 06:53 O2 Sat by Pulse Oximetry (%) 100 09/06/17 21:08 Constitutional: Yes: No Distress, Calm, Other (a bit drowsy but awakens to voice ) Eyes: Yes: Conjunctiva Clear, EOM Intact HENT: Yes: Atraumatic, Normocephalic Neck: Yes: Supple, Trachea Midline Cardiovascular: Yes: Tachycardia (mild), Pulse Irregular Respiratory: Yes: Regular, CTA Bilaterally Gastrointestinal: Yes: Soft, Distention (slightly worse than yesterday), Hypoactive Bowel Sounds Extremities: No: Calf Tenderness, Cold, Cyanosis, Erythema Edema: No Peripheral Pulses: Left Doralis Pedis: 2+, Right Dorsalis Pedis: 2+ Integumentary: Yes: WNL. No: Jaundice Wound/Incision: Yes: Clean/Dry, Well Approximated, [place] Intact Neurological: Yes: Alert, Oriented Psychiatric: Yes: Alert, Oriented Labs: CBC, BMP 09/07/17 05:35 09/07/17 05:35 INR, PTT INR 2.16 (0.82-1.09) H 09/06/17 06:45 Assessment/Plan 82 YOM with h/o CAD (scheduled for cardiac cath and valve repair), CHF, mitral stenosis, AFib (on Xarelto), HTN, HLD, DM, CKD, subdural hematoma (about 6 mo ago), presented to ED 09/03 for intermittent vomiting since about 08/31, seen by PMD Dr. Bishop who Rx'ed Zofran and when sxs continued despite taking this, Pt was advised to come to ED. Found e/o SBO and pneumatosis intestinalist on CT, now s/p uncomplicated ex-lap with lysis of adhesions and release of bowel. Given 2 units FFP, vancomycin, zosyn, 7 liters IVF during surgery. GI: #SBO with pneumatosis intestinalis. Adhesions lysed and SBO reduced in OR. Received vancomycin/Zosyn. -Monitor for BM -Surgery signed off, medical management now -Pain management w/ Dilaudid #Melena, persistent. Also worsening anemia requiring transfusion. -Hold Xarelto -Transfuse as needed -Monitor INR, H/H ID: #Sepsis, improved. In ED HR was up to 133, BP down to 92/68, 90% pulse ox. Likely 2/2 SBO with pneumatosis intestinalis. No perforation seen on ex-lap. -Continue Zosyn, Flagyl -Trend CBCD -F/U cultures #Pneumatosis intestinalis, improved. Likely 2/2 SBO which was reduced in OR. Patient's abdomen is distended slightly more than prior days. -Serial abdominal exams CV: #Hypotension, slightly improved this AM. 91/56 this AM. Had been 70s/50s. Possibility for ACS given worsened anemia yesterday. -Dr. Ryan is following -Will Resume Diovan 80 mg qd and Lopressor 50 mg bid as hemodynamics tolerate -Hydrate with IVF -Wean off phenylephrine as tolerated -Echocardiogram #A-fib on AC, chronic. Orthopedic Rn: Dr. Riojas -Metoprolol for rate control as BP tolerates -Resumed home Xarelto (hold if melena) -Restart AC when recommended by Surgery -Cardiology consult #CAD -Restart home meds when recommended by Surgery -Cardiology consult Pulm: #Hypoxia, improved. Likely 2/2 fluid overload and CHF exacerbation -Careful prn if clinically volume overloaded or congestion on CXR -Continue ventimask Renal: #RILEY on CKD, exacerbated from baseline, improving. -Continue IVF and Lasix -Trend BUN/Cr/UOP FEN -Monitor CMP, Mg, Phos -Replace electrolytes prn PPX: DVT: Xarelto (held for now), SCDs GI: Protonix PT: Order placed Lines/Drains/Tubes PIV placed 09/03/17 Disposition: Further ICU care
[2017-09-07] MEDS ORDERED: CALCIUM GLUCONATE 10% - 1,000 MG/10 ML VIAL IVPUSH ONE (07:17)
[2017-09-07] MEDS ORDERED: CALCIUM GLUCONATE 10% - 1,000 MG/10 ML VIAL IVPB ONE (08:30)
[2017-09-07] MEDS ORDERED: POTASSIUM PHOSPHATE 30 MM in SODIUM CHLORIDE 250 ML IVPB ONE (09:00)
[2017-09-07] MEDS: MUPIROCIN 2% TOPICAL OINTMENT FOR DECOLONIZATION NS SCH (09:09)
[2017-09-07] MEDS: PANTOPRAZOLE SODIUM 40 MG VIAL IVPUSH SCH (09:10)
--- NOTE | 2017-09-07 09:20 | PN ---
Progress Note, Physician Chief Complaint: Events noted Remains in ICU Underlying atrial fibrillation with variable ventricular response Hypotension now on Phenylephrine drip History of Present Illness: Patient was seen and examined. Awake, but appears a little lethargic. Chart was reviewed Pressor support with Phenylephrine Post op laparotomy for intestinal obstruction AF with variable response - periods of RVR - Current Medication List Current Medications: Active Medications Chlorhexidine Gluconate (Hibiclens For Decolonization -) 1 applic TP HS [facility] Last Admin: 09/07/17 02:09 Dose: 1 applic Hydromorphone HCl (Dilaudid Injection -) 1 mg IVPB Q4H PRN PRN Reason: PAIN Last Admin: 09/04/17 13:40 Dose: 1 mg Piperacillin Sod/Tazobactam (Sod 3.375 gm/ Dextrose) 50 mls @ 100 mls/hr IVPB Q8H-IV [facility] PRN Reason: Protocol Last Admin: 09/07/17 09:10 Dose: 100 mls/hr Metronidazole (Flagyl 250mg Premixed Ivpb -) 250 mg in 50 mls @ 50 mls/hr IVPB Q8H-IV [facility] Last Admin: 09/07/17 09:09 Dose: 50 mls/hr Dextrose/Sodium Chloride (D5-1/2ns -) 1,000 mls @ 100 mls/hr IV ASDIR [facility] Last Admin: 09/07/17 08:55 Dose: Not Given Phenylephrine HCl 10,000 mcg/ (Dextrose) 500 mls @ 15 mls/hr IV TITR [facility]; 5 MCG /MIN PRN Reason: Protocol Last Admin: 09/07/17 08:55 Dose: 26.6 mcg/min, 79.8 mls/hr Potassium Phosphate 30 mm/ (Sodium Chloride) 260 mls @ 65 mls/hr IVPB ONCE ONE Stop: 09/07/17 12:59 Last Admin: 09/07/17 09:11 Dose: 65 mls/hr Metoprolol Tartrate (Lopressor -) 50 mg PO BID [facility] Last Admin: 09/07/17 09:10 Dose: Not Given Mupirocin (Bactroban Ointment (For Decolonization) -) 1 applic NS BID [facility] Stop: 09/09/17 09:59 Last Admin: 09/07/17 09:09 Dose: 1 applic Pantoprazole Sodium (Protonix Iv) 40 mg IVPUSH DAILY [facility] Last Admin: 09/07/17 09:10 Dose: 40 mg Rivaroxaban (Xarelto -) 15 mg PO DAILY@1800 [facility] Last Admin: 09/06/17 19:24 Dose: Not Given - Objective Vital Signs: Vital Signs Temperature 97.9 F 09/07/17 08:00 Pulse Rate 97 H 09/07/17 08:55 Respiratory Rate 17 09/07/17 08:00 Blood Pressure 98/40 09/07/17 08:55 O2 Sat by Pulse Oximetry (%) 100 09/07/17 08:00 HENT: Yes: Atraumatic Neck: Yes: Supple Cardiovascular: Yes: Pulse Irregular, Murmur (SM), S1, S2 Respiratory: Yes: Diminished Gastrointestinal: Yes: Other (Post op) Edema: No Labs: CBC, BMP 09/07/17 05:35 09/07/17 05:35 INR, PTT INR 2.16 (0.82-1.09) H 09/06/17 06:45 Problem List - Problems (1) Tricuspid valve regurgitation Code(s): I07.1 - RHEUMATIC TRICUSPID INSUFFICIENCY Qualifiers: Cardiac valve disease etiology: nonrheumatic Qualified Code(s): I36.1 - Nonrheumatic tricuspid (valve) insufficiency (2) Abdominal pain Code(s): R10.9 - UNSPECIFIED ABDOMINAL PAIN Qualifiers: Abdominal location: left upper quadrant Qualified Code(s): R10.12 - Left upper quadrant pain (3) [id number] kidney injury Code(s): N17.9 - ACUTE KIDNEY FAILURE, UNSPECIFIED; N18.9 - CHRONIC KIDNEY DISEASE, UNSPECIFIED Qualifiers: Chronic kidney disease stage: unspecified stage (4) Lactic acidosis Code(s): E87.2 - ACIDOSIS (5) Pneumatosis intestinalis of small intestine Code(s): K63.89 - OTHER SPECIFIED DISEASES OF INTESTINE (6) Sepsis Code(s): A41.9 - SEPSIS, UNSPECIFIED ORGANISM Qualifiers: Sepsis type: sepsis due to unspecified organism Qualified Code(s): A41.9 - Sepsis, unspecified organism (7) Small bowel obstruction Code(s): K56.609 - UNSP INTESTNL OBST, UNSP TO PARTIAL VERSUS COMPLETE OBST (8) Status post exploratory laparotomy Code(s): Z98.890 - OTHER SPECIFIED POSTPROCEDURAL STATES (9) Acute on chronic diastolic (congestive) heart failure Code(s): I50.33 - ACUTE ON CHRONIC DIASTOLIC (CONGESTIVE) HEART FAILURE (10) Hyperlipidemia Code(s): E78.5 - HYPERLIPIDEMIA, UNSPECIFIED Qualifiers: Hyperlipidemia type: pure hypercholesterolemia Qualified Code(s): E78.00 - Pure hypercholesterolemia, unspecified (11) Moderate aortic regurgitation Code(s): I35.1 - NONRHEUMATIC AORTIC (VALVE) INSUFFICIENCY (12) Moderate to severe mitral regurgitation Code(s): I34.0 - NONRHEUMATIC MITRAL (VALVE) INSUFFICIENCY (13) Persistent atrial fibrillation Code(s): I48.1 - PERSISTENT ATRIAL FIBRILLATION (14) T2DM (type 2 diabetes mellitus) Code(s): E11.9 - TYPE 2 DIABETES MELLITUS WITHOUT COMPLICATIONS Qualifiers: Diabetes mellitus complication detail: with diabetic retinopathy Assessment/Plan 1. Small intestinal obstruction, secondary to a band of adhesions s/p exploratory laparotomy, lysis of adhesions, release of intestinal obstruction 2. Chronic diastolic failure with underlying moderate - severe MR, moderate AR, TR 3. CAD, angina pectoris 4. Persistent atrial fibrillation [id number] on NOAC 5. HTN/HCVD 6. Type 2 DM 7. Hyperlipidemia 8. Acute on CKD due to hemodynamic alterations 9. Lactic acidosis and leukocytosis 10. Hypotension on pressor support PLAN: 1. Monitor renal function and electrolytes. Continue hydration and continue pressor support 2. Resume Diovan and Lopressor when cleared by Surgery and when BP is stabilized. Hold Aldactone until further instruction 3. IV Lopressor as needed for rate-control in meantime 4. Xarelto has been held 5. Mitral and tricuspid valve repair/replacement postponed until recovery from this admission Guarded Further plans are to follow José Luis Thakkar MD
--- NOTE | 2017-09-07 10:07 | PN ---
Progress Note, Physician History of Present Illness: 81 year old male with significant medical hx of CAD, MS, CHF, AFib (on Xarelto) HTN, HLD, DM, and CKD who is presenting to the ED with vomiting on Monday. admitted with SBO on 09/03/2017 s/p exploratory Laprotomy - Current Medication List Current Medications: Active Medications Chlorhexidine Gluconate (Hibiclens For Decolonization -) 1 applic TP HS [facility] Last Admin: 09/07/17 02:09 Dose: 1 applic Hydromorphone HCl (Dilaudid Injection -) 1 mg IVPB Q4H PRN PRN Reason: PAIN Last Admin: 09/04/17 13:40 Dose: 1 mg Piperacillin Sod/Tazobactam (Sod 3.375 gm/ Dextrose) 50 mls @ 100 mls/hr IVPB Q8H-IV [facility] PRN Reason: Protocol Last Admin: 09/07/17 09:10 Dose: 100 mls/hr Metronidazole (Flagyl 250mg Premixed Ivpb -) 250 mg in 50 mls @ 50 mls/hr IVPB Q8H-IV [facility] Last Admin: 09/07/17 09:09 Dose: 50 mls/hr Dextrose/Sodium Chloride (D5-1/2ns -) 1,000 mls @ 100 mls/hr IV ASDIR [facility] Last Admin: 09/07/17 08:55 Dose: Not Given Phenylephrine HCl 10,000 mcg/ (Dextrose) 500 mls @ 15 mls/hr IV TITR [facility]; 5 MCG /MIN PRN Reason: Protocol Last Admin: 09/07/17 08:55 Dose: 26.6 mcg/min, 79.8 mls/hr Potassium Phosphate 30 mm/ (Sodium Chloride) 260 mls @ 65 mls/hr IVPB ONCE ONE Stop: 09/07/17 12:59 Last Admin: 09/07/17 09:11 Dose: 65 mls/hr Metoprolol Tartrate (Lopressor -) 50 mg PO BID [facility] Last Admin: 09/07/17 09:10 Dose: Not Given Mupirocin (Bactroban Ointment (For Decolonization) -) 1 applic NS BID [facility] Stop: 09/09/17 09:59 Last Admin: 09/07/17 09:09 Dose: 1 applic Pantoprazole Sodium (Protonix Iv) 40 mg IVPUSH DAILY [facility] Last Admin: 09/07/17 09:10 Dose: 40 mg Rivaroxaban (Xarelto -) 15 mg PO DAILY@1800 [facility] Last Admin: 09/06/17 19:24 Dose: Not Given - Objective Vital Signs: Vital Signs Temperature 98.0 F 09/07/17 10:00 Pulse Rate 94 H 09/07/17 10:00 Respiratory Rate 19 09/07/17 10:00 Blood Pressure 98/58 09/07/17 10:00 O2 Sat by Pulse Oximetry (%) 100 09/07/17 08:00 Elderly man sick looking, not in distress, tolerating PO HEENT: Mm dry, mild anemia, PERRLA NECK: No JVD No Bruit CHEST: Basal Crepts CVS: S1S2 Irr SM in AA ABD: s/p Laprotomy mild tenderness Bs + EXT: Edema feet, + OBI[employer] CONSULTANT: Aox3 non focal Labs: CBC, BMP 09/07/17 05:35 09/07/17 05:35 INR, PTT INR 2.16 (0.82-1.09) H 09/06/17 06:45 Problem List - Problems (1) Pneumatosis intestinalis of small intestine Assessment/Plan: DUe to SBO s/p Exploratory laprotomy on IV abx Code(s): K63.89 - OTHER SPECIFIED DISEASES OF INTESTINE (2) Small bowel obstruction Assessment/Plan: S/P Expl;oratory laprotomy and adhesion lysis , post Op care as per surgery consult Code(s): K56.609 - UNSP INTESTNL OBST, UNSP TO PARTIAL VERSUS COMPLETE OBST (3) CKD (chronic kidney disease) stage 3, GFR 30-59 ml/min Assessment/Plan: Renal dfunctions are improving Code(s): N18.3 - CHRONIC KIDNEY DISEASE, STAGE 3 (MODERATE) (4) [id number] kidney injury Assessment/Plan: Improving on hydration Code(s): N17.9 - ACUTE KIDNEY FAILURE, UNSPECIFIED; N18.9 - CHRONIC KIDNEY DISEASE, UNSPECIFIED Qualifiers: Chronic kidney disease stage: unspecified stage (5) Tricuspid valve regurgitation Assessment/Plan: Schedule for repair as out patient Code(s): I07.1 - RHEUMATIC TRICUSPID INSUFFICIENCY Qualifiers: Cardiac valve disease etiology: nonrheumatic Qualified Code(s): I36.1 - Nonrheumatic tricuspid (valve) insufficiency (6) Moderate to severe mitral regurgitation Assessment/Plan: Schedule for surgery as out patient Code(s): I34.0 - NONRHEUMATIC MITRAL (VALVE) INSUFFICIENCY (7) T2DM (type 2 diabetes mellitus) Assessment/Plan: On Correction dose insulin opttimize Glycemic control Code(s): E11.9 - TYPE 2 DIABETES MELLITUS WITHOUT COMPLICATIONS Qualifiers: Diabetes mellitus complication detail: with diabetic retinopathy (8) Persistent atrial fibrillation Assessment/Plan: On rate control and Ac, cont cUrrent management as per Cardiology consult. Code(s): I48.1 - PERSISTENT ATRIAL FIBRILLATION
[2017-09-07] MEDS: INSULIN SLIDING SCALE (NOVOLOG) 1 VIAL SQ SCH ×2 (12:00→17:12)
--- NOTE | 2017-09-07 13:44 | PN ---
Teaching Attending Note Name of Resident: Evonne Isabelle ATTENDING PHYSICIAN STATEMENT I saw and evaluated the patient. I reviewed the resident's note and discussed the case with the resident. I agree with the resident's findings and plan as documented. SUBJECTIVE: Patient seen and examined in the ICU. Awake and interactive. Phenylephrine for hemodynamic support. Borderline hypotensive this AM. Dark bowel movement overnight. Passing flatus. OBJECTIVE: Intake & Output 09/04/17 09/05/17 09/06/17 09/07/17 23:59 23:59 23:59 23:59 Intake Total 220 1150 5850 9160 Output Total 1750 1650 2300 Balance -1530 -500 3550 9160 Weight 189 lb 6.4 oz 189 lb 6.4 oz 193 lb 12.8 oz 200 lb 4.8 oz Last Vital Signs Temp Pulse Resp BP Pulse Ox 98 F 96 H 19 100/63 100 09/07/17 13:22 09/07/17 13:22 09/07/17 13:22 09/07/17 13:22 09/07/17 08:00 Active Medications Chlorhexidine Gluconate (Hibiclens For Decolonization -) 1 applic TP HS [facility] Last Admin: 09/07/17 02:09 Dose: 1 applic Hydromorphone HCl (Dilaudid Injection -) 1 mg IVPB Q4H PRN PRN Reason: PAIN Last Admin: 09/04/17 13:40 Dose: 1 mg Piperacillin Sod/Tazobactam (Sod 3.375 gm/ Dextrose) 50 mls @ 100 mls/hr IVPB Q8H-IV [facility] PRN Reason: Protocol Last Admin: 09/07/17 09:10 Dose: 100 mls/hr Metronidazole (Flagyl 250mg Premixed Ivpb -) 250 mg in 50 mls @ 50 mls/hr IVPB Q8H-IV [facility] Last Admin: 09/07/17 09:09 Dose: 50 mls/hr Dextrose/Sodium Chloride (D5-1/2ns -) 1,000 mls @ 100 mls/hr IV ASDIR [facility] Last Admin: 09/07/17 10:21 Dose: 100 mls/hr Phenylephrine HCl 10,000 mcg/ (Dextrose) 500 mls @ 15 mls/hr IV TITR [facility]; 5 MCG /MIN PRN Reason: Protocol Last Admin: 09/07/17 08:55 Dose: 26.6 mcg/min, 79.8 mls/hr Insulin Aspart (Novolog Vial Sliding Scale -) 1 vial SQ Q6HPO [facility] PRN Reason: Protocol Last Admin: 09/07/17 12:00 Dose: 4 units Metoprolol Tartrate (Lopressor -) 50 mg PO BID [facility] Last Admin: 09/07/17 09:10 Dose: Not Given Mupirocin (Bactroban Ointment (For Decolonization) -) 1 applic NS BID [facility] Stop: 09/09/17 09:59 Last Admin: 09/07/17 09:09 Dose: 1 applic Pantoprazole Sodium (Protonix Iv) 40 mg IVPUSH DAILY [facility] Last Admin: 09/07/17 09:10 Dose: 40 mg Rivaroxaban (Xarelto -) 15 mg PO DAILY@1800 [facility] Last Admin: 09/06/17 19:24 Dose: Not Given Gen: somnolent but arousable Heart: tachycardic, regular Lung: decreased breath sounds at the bases Abd: softly distended, hypoactive BS, mild diffuse tenderness Ext: no edema Laboratory Results - last 24 hr 09/03/17 09/06/17 09/07/17 22:40 19:00 00:01 WBC 6.0 RBC 3.04 L D Hgb 7.0 L D Hct 22.6 L D MCV 74.2 L MCH 23.0 L MCHC 31.0 L RDW 16.4 H Plt Count 134 MPV 8.9 Sodium Potassium Chloride Carbon Dioxide Anion Gap BUN Creatinine Creat Clearance w eGFR POC Glucometer Random Glucose Calcium Phosphorus Magnesium Total Bilirubin AST ALT Alkaline Phosphatase Total Protein Albumin Blood Type B POSITIVE B POSITIVE Antibody Screen Negative Crossmatch See Detail See Detail Crossmatch IS Only See Detail 09/07/17 09/07/17 09/07/17 05:35 05:35 12:16 WBC 10.8 H D RBC 3.90 L D Hgb 10.0 L D Hct 30.1 L D MCV 77.1 L MCH 25.6 L D MCHC 33.2 RDW 16.8 H Plt Count 142 MPV 8.7 Sodium 142 Potassium 3.2 L Chloride 103 Carbon Dioxide 30 Anion Gap 9 BUN 105 H* Creatinine 1.8 H Creat Clearance w eGFR 36.30 POC Glucometer [phone] Random Glucose 206 H Calcium 6.6 L* Phosphorus 1.8 L Magnesium 2.4 Total Bilirubin 1.3 H D AST 18 ALT 16 D Alkaline Phosphatase 28 L Total Protein 4.1 L Albumin 2.0 L Blood Type Antibody Screen Crossmatch Crossmatch IS Only ASSESSMENT AND PLAN: Small Bowel Obstruction/Pneumotosis s/p ex-lap/PARDEEP Sepsis Acute on Chronic Renal Failure Lactic Acidosis resolving Atrial fibrillation LV Diastolic Dysfunction Mitral Regurgitation CAD HTN DM Hypercholesterolemia - EKG/CE/ECHO - continue antibiotics - IVF - replete lytes - monitor urine output, creatinine - rate control - AC - monitor H/H - pain control - Incentive spirometry - OOB to chair - rehab/PT - PO per surgery - continue ICU monitoring - Wean pressors as tolerated Dr Arboleda Critical care time spent in reviewing chart, evaluating patient and formulating plan 35 min
--- NOTE | 2017-09-07 13:55 | PN ---
Progress Note, Physician History of Present Illness: More lethargic today Denies abdominal pain +melanotic BM reported Afebrile WBC 10.8 Cultures negative - Current Medication List Current Medications: Active Medications Chlorhexidine Gluconate (Hibiclens For Decolonization -) 1 applic TP HS [facility] Last Admin: 09/07/17 02:09 Dose: 1 applic Hydromorphone HCl (Dilaudid Injection -) 1 mg IVPB Q4H PRN PRN Reason: PAIN Last Admin: 09/04/17 13:40 Dose: 1 mg Piperacillin Sod/Tazobactam (Sod 3.375 gm/ Dextrose) 50 mls @ 100 mls/hr IVPB Q8H-IV [facility] PRN Reason: Protocol Last Admin: 09/07/17 09:10 Dose: 100 mls/hr Metronidazole (Flagyl 250mg Premixed Ivpb -) 250 mg in 50 mls @ 50 mls/hr IVPB Q8H-IV [facility] Last Admin: 09/07/17 09:09 Dose: 50 mls/hr Dextrose/Sodium Chloride (D5-1/2ns -) 1,000 mls @ 100 mls/hr IV ASDIR [facility] Last Admin: 09/07/17 10:21 Dose: 100 mls/hr Phenylephrine HCl 10,000 mcg/ (Dextrose) 500 mls @ 15 mls/hr IV TITR [facility]; 5 MCG /MIN PRN Reason: Protocol Last Admin: 09/07/17 08:55 Dose: 26.6 mcg/min, 79.8 mls/hr Insulin Aspart (Novolog Vial Sliding Scale -) 1 vial SQ Q6HPO [facility] PRN Reason: Protocol Last Admin: 09/07/17 12:00 Dose: 4 units Metoprolol Tartrate (Lopressor -) 50 mg PO BID [facility] Last Admin: 09/07/17 09:10 Dose: Not Given Mupirocin (Bactroban Ointment (For Decolonization) -) 1 applic NS BID [facility] Stop: 09/09/17 09:59 Last Admin: 09/07/17 09:09 Dose: 1 applic Pantoprazole Sodium (Protonix Iv) 40 mg IVPUSH DAILY [facility] Last Admin: 09/07/17 09:10 Dose: 40 mg Rivaroxaban (Xarelto -) 15 mg PO DAILY@1800 [facility] Last Admin: 09/06/17 19:24 Dose: Not Given - Objective Vital Signs: Vital Signs Temperature 98 F 09/07/17 13:22 Pulse Rate 96 H 09/07/17 13:22 Respiratory Rate 19 09/07/17 13:22 Blood Pressure 100/63 09/07/17 13:22 O2 Sat by Pulse Oximetry (%) 100 09/07/17 08:00 Constitutional: Yes: No Distress Eyes: Yes: Conjunctiva Clear Cardiovascular: Yes: Regular Rate and Rhythm, S1, S2 Respiratory: Yes: Diminished Gastrointestinal: Yes: Normal Bowel Sounds, Soft, Other (abdomen distended, soft Wound no erythema/ drainage). No: Tenderness Labs: CBC, BMP 09/07/17 05:35 09/07/17 05:35 INR, PTT INR 2.16 (0.82-1.09) H 09/06/17 06:45 Assessment/Plan POD # 3 exploratory laparotomy/ SBO Leukocytosis- resolved Lactic acidosis- resolved Renal failure-improved Valvular heart disease Continue empiric zosyn/ flagyl
--- NOTE | 2017-09-07 15:17 | EKG ---
Test Reason : Blood Pressure : / mmHG Vent. Rate : 101 BPM Atrial Rate : 227 BPM P-R Int : 000 ms QRS Dur : 086 ms QT Int : 334 ms P-R-T Axes : 000 008 -11 degrees QTc Int : 433 ms ATRIAL FIBRILLATION WITH RAPID VENTRICULAR RESPONSE WITH PREMATURE VENTRICULAR OR ABERRANTLY CONDUCTED COMPLEXES ABNORMAL ECG WHEN COMPARED WITH ECG OF 03-SEP-2017 17:07, ATRIAL FIBRILLATION HAS REPLACED JUNCTIONAL RHYTHM NONSPECIFIC T WAVE ABNORMALITY, IMPROVED IN LATERAL LEADS Confirmed by MERRILL SEBASTIAN MD ([id number]) on 09/07/2017 3:17:30 PM Referred By: Confirmed By:MERRILL SEBASTIAN MD
--- NOTE | 2017-09-07 16:09 | PN ---
Progress Note, Physician - Current Medication List Current Medications: Active Medications Chlorhexidine Gluconate (Hibiclens For Decolonization -) 1 applic TP HS [facility] Last Admin: 09/07/17 02:09 Dose: 1 applic Hydromorphone HCl (Dilaudid Injection -) 1 mg IVPB Q4H PRN PRN Reason: PAIN Last Admin: 09/04/17 13:40 Dose: 1 mg Piperacillin Sod/Tazobactam (Sod 3.375 gm/ Dextrose) 50 mls @ 100 mls/hr IVPB Q8H-IV [facility] PRN Reason: Protocol Last Admin: 09/07/17 09:10 Dose: 100 mls/hr Metronidazole (Flagyl 250mg Premixed Ivpb -) 250 mg in 50 mls @ 50 mls/hr IVPB Q8H-IV [facility] Last Admin: 09/07/17 09:09 Dose: 50 mls/hr Dextrose/Sodium Chloride (D5-1/2ns -) 1,000 mls @ 100 mls/hr IV ASDIR [facility] Last Admin: 09/07/17 10:21 Dose: 100 mls/hr Phenylephrine HCl 10,000 mcg/ (Dextrose) 500 mls @ 15 mls/hr IV TITR [facility]; 5 MCG /MIN PRN Reason: Protocol Last Admin: 09/07/17 08:55 Dose: 26.6 mcg/min, 79.8 mls/hr Insulin Aspart (Novolog Vial Sliding Scale -) 1 vial SQ Q6HPO [facility] PRN Reason: Protocol Last Admin: 09/07/17 12:00 Dose: 4 units Metoprolol Tartrate (Lopressor -) 50 mg PO BID [facility] Last Admin: 09/07/17 09:10 Dose: Not Given Mupirocin (Bactroban Ointment (For Decolonization) -) 1 applic NS BID [facility] Stop: 09/09/17 09:59 Last Admin: 09/07/17 09:09 Dose: 1 applic Pantoprazole Sodium (Protonix Iv) 40 mg IVPUSH DAILY [facility] Last Admin: 09/07/17 09:10 Dose: 40 mg Rivaroxaban (Xarelto -) 15 mg PO DAILY@1800 [facility] Last Admin: 09/06/17 19:24 Dose: Not Given - Objective Vital Signs: Vital Signs Temperature 98 F 09/07/17 14:00 Pulse Rate 96 H 09/07/17 14:00 Respiratory Rate 28 H 09/07/17 14:00 Blood Pressure 85/52 09/07/17 14:00 O2 Sat by Pulse Oximetry (%) 100 09/07/17 08:00 Labs: CBC, BMP 09/07/17 05:35 09/07/17 05:35 INR, PTT INR 2.16 (0.82-1.09) H 09/06/17 06:45 Problem List - Problems (1) Abdominal pain Code(s): R10.9 - UNSPECIFIED ABDOMINAL PAIN Qualifiers: Qualified Code(s): R10.12 - Left upper quadrant pain (2) Small bowel obstruction Code(s): K56.609 - UNSP INTESTNL OBST, UNSP TO PARTIAL VERSUS COMPLETE OBST (3) Heart failure, diastolic, with acute decompensation Code(s): I50.33 - ACUTE ON CHRONIC DIASTOLIC (CONGESTIVE) HEART FAILURE (4) Moderate to severe mitral regurgitation Code(s): I34.0 - NONRHEUMATIC MITRAL (VALVE) INSUFFICIENCY (5) Pneumatosis intestinalis of small intestine Code(s): K63.89 - OTHER SPECIFIED DISEASES OF INTESTINE Assessment/Plan Surgery: Patient is afebrile. Alert , has been having nathaly with acute drop in hematocrit. received packed cell transfusion. Wound is clean. Abdomen is soft, distended, ? ascites. Not tender. Plan : will obtain abdominal X-ray. No nausea, no vomiting.
[2017-09-07] MEDS: RIVAROXABAN 15 MG TABLET PO SCH (17:46)
[2017-09-07] MEDS ORDERED: ONDANSETRON 4 MG/2 ML VIAL IVPUSH ONE (19:45)
[2017-09-07 20:57] LABS: N-TERMINAL BNP 1730.41 pg/ml (5-450)
[2017-09-08] MEDS: PHENYLEPHRINE HCL 20,000 MCG in SODIUM CHLORIDE 248 ML IVPB SCH ×2 (00:08→16:00)
[2017-09-08] MEDS: INSULIN SLIDING SCALE (NOVOLOG) 1 VIAL SQ SCH ×4 (00:10→18:03)
[2017-09-08] MEDS: MUPIROCIN 2% TOPICAL OINTMENT FOR DECOLONIZATION NS SCH ×3 (00:11→21:34)
[2017-09-08] MEDS: CHLORHEXIDINE GLUCONATE 4% CLEANSER FOR DECOLONIZATION TP SCH ×2 (00:12→21:35)
[2017-09-08] MEDS ORDERED: ALBUTEROL SO4 2.5/IPRATROPIUM 0.5 INH SOL 3 ML VIAL.NEB. NEB ONE (00:26)
[2017-09-08] MEDS: PIPERACILLIN/TAZOB 3.375 GM 3.375 GM in DEXTROSE 5%-WATER - 50 ML IVPB SCH ×3 (02:00→17:14)
[2017-09-08 06:25] LABS: BASO % 0.1 % (0-2.0); EOS % 0.6 % (0-4.5); HEMATOCRIT 27.1 % (35.4-49); HEMOGLOBIN 8.9 GM/dL (11.7-16.9); LYMPH % 4.5 % (8-40); MCH 25.1 pg (25.7-33.7); MCHC 32.9 g/dl (32.0-35.9); MEAN CELL VOLUME 76.3 fl (80-96); MONO % 10.4 % (3.8-10.2); NEUT % 84.4 % (42.8-82.8); PLATELET COUNT 140 K/MM3 (134-434); RBC 3.55 M/mm3 (4.00-5.60); RDW 16.6 % (11.9-15.9); WHITE BLOOD COUNT 13.9 K/mm3 (4.0-10.0)
--- NOTE | 2017-09-08 06:55 | PN ---
Progress Note, Physician History of Present Illness: 24 HOUR EVENTS WBC continued small increase 13.9k now. Dr. Calhoun saw yesterday, ordered abdominal x-ray. XR shows bilateral obstruction with increasing small bowel dilation. Abdomen appears more distended, not yet tight. Had non-melena stool last night after a few stools with melena throughout the day. Weight is up about 10 kg from admission (09/03). On phenylephrine 23 mcg as of this morning, maintaining systolic pressure >90. SUBJECTIVE Patient denies any pain or other symptoms. States feeling better now than last night. 24 HOUR INTAKE & OUTPUT In: 5250cc Out: not reported Net: 5250cc (no voids reported) BM: Yes (some black/tarry but cleared to brown) LINES/TUBES/DRAINS PIV: - Current Medication List Current Medications: Active Medications Chlorhexidine Gluconate (Hibiclens For Decolonization -) 1 applic TP HS MELISSA Last Admin: 09/08/17 00:12 Dose: 1 applic Hydromorphone HCl (Dilaudid Injection -) 1 mg IVPB Q4H PRN PRN Reason: PAIN Last Admin: 09/04/17 13:40 Dose: 1 mg Piperacillin Sod/Tazobactam (Sod 3.375 gm/ Dextrose) 50 mls @ 100 mls/hr IVPB Q8H-IV MELISSA PRN Reason: Protocol Last Admin: 09/08/17 02:00 Dose: 100 mls/hr Metronidazole (Flagyl 250mg Premixed Ivpb -) 250 mg in 50 mls @ 50 mls/hr IVPB Q8H-IV MELISSA Last Admin: 09/08/17 02:00 Dose: 50 mls/hr Dextrose/Sodium Chloride (D5-1/2ns -) 1,000 mls @ 100 mls/hr IV ASDIR MELISSA Last Admin: 09/07/17 10:21 Dose: 100 mls/hr Phenylephrine HCl 20,000 mcg/ (Sodium Chloride) 250 mls @ 37.5 mls/hr IVPB ASDIR MELISSA; 50 MCG/MIN PRN Reason: Protocol Last Admin: 09/08/17 00:08 Dose: 26 mcg/min, 19.5 mls/hr Insulin Aspart (Novolog Vial Sliding Scale -) 1 vial SQ Q6HPO MELISSA PRN Reason: Protocol Last Admin: 09/08/17 06:05 Dose: 4 units Metoprolol Tartrate (Lopressor -) 50 mg PO BID [facility] Last Admin: 09/07/17 22:17 Dose: Not Given Mupirocin (Bactroban Ointment (For Decolonization) -) 1 applic NS BID [facility] Stop: 09/09/17 09:59 Last Admin: 09/08/17 00:11 Dose: 1 applic Pantoprazole Sodium (Protonix Iv) 40 mg IVPUSH DAILY [facility] Last Admin: 09/07/17 09:10 Dose: 40 mg Rivaroxaban (Xarelto -) 15 mg PO DAILY@1800 [facility] Last Admin: 09/07/17 17:46 Dose: Not Given - Objective Vital Signs: Vital Signs Temperature 97.6 F 09/08/17 02:00 Pulse Rate 96 H 09/08/17 04:00 Respiratory Rate 18 09/08/17 04:00 Blood Pressure 91/38 09/08/17 04:00 O2 Sat by Pulse Oximetry (%) 100 09/07/17 21:00 Constitutional: Yes: No Distress, Calm, Other (appears slightly improved from yesterday) Eyes: Yes: WNL, Conjunctiva Clear, EOM Intact HENT: Yes: WNL, Atraumatic, Normocephalic Neck: Yes: WNL, Supple, Trachea Midline Cardiovascular: Yes: Pulse Irregular, Other (2/6 systolic murmur best heard at LLSB) Respiratory: Yes: WNL, Regular, CTA Bilaterally. No: Cough, Stridor Gastrointestinal: Yes: Normal Bowel Sounds, Distention, Other (diffusely tympanic) Extremities: Yes: WNL. No: Cold, Cyanosis, Deformity, Delayed Capillary Refill , Erythema Edema: Yes (trace BUE and sacral) Peripheral Pulses: Left Doralis Pedis: 2+, Right Dorsalis Pedis: 2+ Wound/Incision: Yes: Clean/Dry, Well Approximated, Micky Intact, Dressing Dry and Intact. No: Draining, Reddened Neurological: Yes: Alert, Oriented, Other ...Motor Strength: WNL Psychiatric: Yes: WNL, Alert, Oriented Labs: CBC, BMP 09/08/17 05:35 INR, PTT INR 2.16 (0.82-1.09) H 09/06/17 06:45 - ....Imaging X-ray: Report Reviewed, Image Reviewed, Other (Abdominal x-ray with bilateral obstruction, worsened small bowel dilation) Assessment/Plan 82 YOM with h/o CAD (scheduled for cardiac cath and valve repair), CHF, mitral stenosis, AFib (on Xarelto), HTN, HLD, DM, CKD, subdural hematoma (about 6 mo ago), presented to ED 09/03 for intermittent vomiting since about 08/31, seen by PMD Dr. Bishop who Rx'ed Zofran and when sxs continued despite taking this, Pt was advised to come to ED. Found e/o SBO and pneumatosis intestinalist on CT, now s/p uncomplicated ex-lap with lysis of adhesions and release of bowel. Given 2 units FFP, vancomycin, zosyn, 7 liters IVF during surgery. GI: #SBO with pneumatosis intestinalis. Adhesions lysed and SBO reduced in OR. Received vancomycin/Zosyn. Abdominal XR from 09/07 PM showed bilateral obstruction with worsened dilation of small bowel. Pending final read of CT abdomen/pelvis with PO contrast from 09/08. -Monitor BM for melena -Surgery Dr. Calhoun following -Pain management w/ Dilaudid #Melena, persistent. Also worsening anemia requiring transfusion. -Hold Xarelto -Transfuse as needed -Monitor INR, H/H ID: #Sepsis, improved. In ED HR was up to 133, BP down to 92/68, 90% pulse ox. Likely 2/2 SBO with pneumatosis intestinalis. No perforation seen on ex-lap. -Continue Zosyn, Flagyl -Trend CBCD -F/U cultures #Pneumatosis intestinalis, improved. Likely 2/2 SBO which was reduced in OR. Patient's abdomen is distended slightly more than prior days. -Serial abdominal exams CV: #Hypotension, slightly improved this AM. On phenylephrine 23 mcg. Echo without acute worsening. -Dr. Ryan is following -Will Resume Diovan 80 mg qd and Lopressor 50 mg bid as hemodynamics tolerate -Hydrate with IVF with caution -Wean off phenylephrine as tolerated #A-fib on AC, chronic. Horser Up: Dr. Riojas -Metoprolol for rate control as BP tolerates -Restart AC when recommended by Surgery -Cardiology consult #CAD -Restart home meds when recommended by Surgery -Cardiology consult PULM #Hypoxia, improved. Likely 2/2 fluid overload and CHF exacerbation -Careful prn if clinically volume overloaded or congestion on CXR -Continue ventimask -Encourage incentive spirometry; family also on board to encourage RENAL #RILEY on CKD, exacerbated from baseline, improving. -Continue IVF and Lasix -Trend BUN/Cr/UOP FEN -Monitor CMP, Mg, Phos -Replace electrolytes prn PPX DVT: Xarelto (held for now), SCDs GI: Protonix PT: Order placed Lines/Drains/Tubes PIV placed 09/03/17 Disposition: Further ICU care
[2017-09-08 06:58] LABS: ALBUMIN 2.1 g/dl (3.4-5.0); ANION GAP 11 (8-16); BLOOD UREA NITROGEN 76 mg/dL (7-18); CALCIUM 7.2 mg/dL (8.5-10.1); CHLORIDE 102 mmol/L (98-107); CO2 27 mmol/L (21-32); SODIUM 140 mmol/L (136-145)
[2017-09-08 07:03] LABS: ALK PHOS 28 U/L (45-117); CREATININE 1.4 mg/dL (0.7-1.3); GLUCOSE,RANDOM 187 mg/dL (74-106); PHOSPHOROUS 2.4 mg/dL (2.5-4.9); SGPT/ALT 21 U/L (12-78); TOT PROT 4.2 g/dl (6.4-8.2)
[2017-09-08 07:16] LABS: MAGNESIUM 2.3 mg/dL (1.8-2.4); POTASSIUM 3.6 mmol/L (3.5-5.1); SGOT/AST 28 U/L (15-37)
[2017-09-08] MEDS: DEXTROSE 5%-0.45% SALINE 1,000 ML IV SCH ×2 (08:00→22:11)
[2017-09-08 08:41] LABS: INR 1.43 (0.82-1.09); PROTHROMBIN TIME (PATIENT) 16.2 SEC (9.98-11.88)
[2017-09-08 08:44] LABS: ACTIVATED PTT 28.5 SECONDS (26.9-34.4)
[2017-09-08] MEDS ORDERED: PT OWN MED DRAWER 7, Y5N ONE ×3 (08:55→17:10)
--- NOTE | 2017-09-08 09:32 | PN ---
Progress Note, Physician - Current Medication List Current Medications: Active Medications Chlorhexidine Gluconate (Hibiclens For Decolonization -) 1 applic TP HS MELISSA Last Admin: 09/08/17 00:12 Dose: 1 applic Hydromorphone HCl (Dilaudid Injection -) 1 mg IVPB Q4H PRN PRN Reason: PAIN Last Admin: 09/04/17 13:40 Dose: 1 mg Piperacillin Sod/Tazobactam (Sod 3.375 gm/ Dextrose) 50 mls @ 100 mls/hr IVPB Q8H-IV MELISSA PRN Reason: Protocol Last Admin: 09/08/17 02:00 Dose: 100 mls/hr Metronidazole (Flagyl 250mg Premixed Ivpb -) 250 mg in 50 mls @ 50 mls/hr IVPB Q8H-IV MELISSA Last Admin: 09/08/17 02:00 Dose: 50 mls/hr Dextrose/Sodium Chloride (D5-1/2ns -) 1,000 mls @ 100 mls/hr IV ASDIR MELISSA Last Admin: 09/08/17 08:00 Dose: 100 mls/hr Phenylephrine HCl 20,000 mcg/ (Sodium Chloride) 250 mls @ 37.5 mls/hr IVPB ASDIR MELISSA; 50 MCG/MIN PRN Reason: Protocol Last Admin: 09/08/17 00:08 Dose: 26 mcg/min, 19.5 mls/hr Insulin Aspart (Novolog Vial Sliding Scale -) 1 vial SQ Q6HPO MELISSA PRN Reason: Protocol Last Admin: 09/08/17 06:05 Dose: 4 units Metoprolol Tartrate (Lopressor -) 50 mg PO BID [facility] Last Admin: 09/07/17 22:17 Dose: Not Given Mupirocin (Bactroban Ointment (For Decolonization) -) 1 applic NS BID [facility] Stop: 09/09/17 09:59 Last Admin: 09/08/17 00:11 Dose: 1 applic Pantoprazole Sodium (Protonix Iv) 40 mg IVPUSH DAILY [facility] Last Admin: 09/07/17 09:10 Dose: 40 mg Rivaroxaban (Xarelto -) 15 mg PO DAILY@1800 MELISSA Last Admin: 09/07/17 17:46 Dose: Not Given - Objective Vital Signs: Vital Signs Temperature 97.5 F L 09/08/17 08:00 Pulse Rate 92 H 02/23/18 08:00 Respiratory Rate 17 09/08/17 08:00 Blood Pressure 97/57 09/08/17 08:00 O2 Sat by Pulse Oximetry (%) 100 09/07/17 21:00 Labs: CBC, BMP 09/08/17 05:35 09/08/17 05:35 INR, PTT INR 1.43 (0.82-1.09) H D 09/08/17 07:40 Problem List - Problems (1) Abdominal pain Code(s): R10.9 - UNSPECIFIED ABDOMINAL PAIN Qualifiers: Abdominal location: left upper quadrant Qualified Code(s): R10.12 - Left upper quadrant pain (2) Small bowel obstruction Code(s): K56.609 - UNSP INTESTNL OBST, UNSP TO PARTIAL VERSUS COMPLETE OBST (3) Heart failure, diastolic, with acute decompensation Code(s): I50.33 - ACUTE ON CHRONIC DIASTOLIC (CONGESTIVE) HEART FAILURE (4) Moderate to severe mitral regurgitation Code(s): I34.0 - NONRHEUMATIC MITRAL (VALVE) INSUFFICIENCY (5) Pneumatosis intestinalis of small intestine Code(s): K63.89 - OTHER SPECIFIED DISEASES OF INTESTINE Assessment/Plan Surgery: Patient is afebrile. Abdomen is distended , soft , not tender No nausea, no vomiting. Abdominal X-ray , suggests dilated small bowel loops. Will repeat Ct scan of abdomen with oral contrast only. Normal WBC.
[2017-09-08] MEDS: METOPROLOL TARTRATE 50 MG TABLET (FP) PO SCH ×2 (09:38→21:34)
[2017-09-08] MEDS: PANTOPRAZOLE SODIUM 40 MG VIAL IVPUSH SCH (09:38)
--- NOTE | 2017-09-08 09:40 | PN ---
Progress Note, Physician Chief Complaint: Feels better History of Present Illness: Case discussed with Dr Calhoun in detail Patient is doing well today Needs to do CT of abdomen with PO contrast - Current Medication List Current Medications: Active Medications Chlorhexidine Gluconate (Hibiclens For Decolonization -) 1 applic TP HS MELISSA Last Admin: 09/08/17 00:12 Dose: 1 applic Hydromorphone HCl (Dilaudid Injection -) 1 mg IVPB Q4H PRN PRN Reason: PAIN Last Admin: 09/04/17 13:40 Dose: 1 mg Piperacillin Sod/Tazobactam (Sod 3.375 gm/ Dextrose) 50 mls @ 100 mls/hr IVPB Q8H-IV MELISSA PRN Reason: Protocol Last Admin: 09/08/17 02:00 Dose: 100 mls/hr Metronidazole (Flagyl 250mg Premixed Ivpb -) 250 mg in 50 mls @ 50 mls/hr IVPB Q8H-IV MELISSA Last Admin: 09/08/17 02:00 Dose: 50 mls/hr Dextrose/Sodium Chloride (D5-1/2ns -) 1,000 mls @ 100 mls/hr IV ASDIR MELISSA Last Admin: 09/08/17 08:00 Dose: 100 mls/hr Phenylephrine HCl 20,000 mcg/ (Sodium Chloride) 250 mls @ 37.5 mls/hr IVPB ASDIR MELISSA; 50 MCG/MIN PRN Reason: Protocol Last Admin: 09/08/17 00:08 Dose: 26 mcg/min, 19.5 mls/hr Insulin Aspart (Novolog Vial Sliding Scale -) 1 vial SQ Q6HPO MELISSA PRN Reason: Protocol Last Admin: 09/08/17 06:05 Dose: 4 units Metoprolol Tartrate (Lopressor -) 50 mg PO BID [facility] Last Admin: 09/07/17 22:17 Dose: Not Given Mupirocin (Bactroban Ointment (For Decolonization) -) 1 applic NS BID [facility] Stop: 09/09/17 09:59 Last Admin: 09/08/17 00:11 Dose: 1 applic Pantoprazole Sodium (Protonix Iv) 40 mg IVPUSH DAILY [facility] Last Admin: 09/07/17 09:10 Dose: 40 mg Rivaroxaban (Xarelto -) 15 mg PO DAILY@1800 [facility] Last Admin: 09/07/17 17:46 Dose: Not Given - Objective Vital Signs: Vital Signs Temperature 97.5 F L 09/08/17 08:00 Pulse Rate 92 H 09/08/17 08:00 Respiratory Rate 17 09/08/17 08:00 Blood Pressure 97/57 09/08/17 08:00 O2 Sat by Pulse Oximetry (%) 100 09/07/17 21:00 Constitutional: Yes: Anxious Eyes: Yes: WNL HENT: Yes: WNL Cardiovascular: Yes: Tachycardia Respiratory: Yes: On Nasal O2 Gastrointestinal: Yes: Distention ...Rectal Exam: Yes: Deferred Genitourinary: Yes: WNL Musculoskeletal: Yes: Muscle Weakness Edema: No Wound/Incision: Yes: Clean/Dry Neurological: Yes: Alert Labs: CBC, BMP 09/08/17 05:35 09/08/17 05:35 INR, PTT INR 1.43 (0.82-1.09) H D 09/08/17 07:40
--- NOTE | 2017-09-08 11:49 | PN ---
Progress Note, Physician History of Present Illness: awake, alert Denies abdominal pain + abdominal distention and bloating +melanotic BM reported Afebrile WBC 13.9 Cultures negative - Current Medication List Current Medications: Active Medications Chlorhexidine Gluconate (Hibiclens For Decolonization -) 1 applic TP HS MELISSA Last Admin: 09/08/17 00:12 Dose: 1 applic Hydromorphone HCl (Dilaudid Injection -) 1 mg IVPB Q4H PRN PRN Reason: PAIN Last Admin: 09/04/17 13:40 Dose: 1 mg Piperacillin Sod/Tazobactam (Sod 3.375 gm/ Dextrose) 50 mls @ 100 mls/hr IVPB Q8H-IV MELISSA PRN Reason: Protocol Last Admin: 09/08/17 09:38 Dose: 100 mls/hr Metronidazole (Flagyl 250mg Premixed Ivpb -) 250 mg in 50 mls @ 50 mls/hr IVPB Q8H-IV MELISSA Last Admin: 09/08/17 09:38 Dose: 50 mls/hr Dextrose/Sodium Chloride (D5-1/2ns -) 1,000 mls @ 100 mls/hr IV ASDIR MELISSA Last Admin: 09/08/17 08:00 Dose: 100 mls/hr Phenylephrine HCl 20,000 mcg/ (Sodium Chloride) 250 mls @ 37.5 mls/hr IVPB ASDIR MELISSA; 50 MCG/MIN PRN Reason: Protocol Last Admin: 09/08/17 00:08 Dose: 26 mcg/min, 19.5 mls/hr Insulin Aspart (Novolog Vial Sliding Scale -) 1 vial SQ Q6HPO MELISSA PRN Reason: Protocol Last Admin: 09/08/17 06:05 Dose: 4 units Metoprolol Tartrate (Lopressor -) 50 mg PO BID [facility] Last Admin: 09/08/17 09:38 Dose: Not Given Mupirocin (Bactroban Ointment (For Decolonization) -) 1 applic NS BID [facility] Stop: 09/09/17 09:59 Last Admin: 09/08/17 09:38 Dose: 1 applic Pantoprazole Sodium (Protonix Iv) 40 mg IVPUSH DAILY [facility] Last Admin: 09/08/17 09:38 Dose: 40 mg Rivaroxaban (Xarelto -) 15 mg PO DAILY@1800 [facility] Last Admin: 09/07/17 17:46 Dose: Not Given - Objective Vital Signs: Vital Signs Temperature 97.5 F L 09/08/17 10:00 Pulse Rate 95 H 09/08/17 10:00 Respiratory Rate 21 09/08/17 10:00 Blood Pressure 103/73 09/08/17 10:00 O2 Sat by Pulse Oximetry (%) 100 09/07/17 21:00 Constitutional: Yes: Mild Distress Eyes: Yes: Conjunctiva Clear Cardiovascular: Yes: Regular Rate and Rhythm, S1, S2 Respiratory: Yes: Diminished Gastrointestinal: Yes: Normal Bowel Sounds, Soft, Other (distended, tympanitic. Surgical wound no erythema/ drainage). No: Tenderness Edema: LLE: 1+, RLE: 1+ Labs: CBC, BMP 09/08/17 05:35 09/08/17 05:35 INR, PTT INR 1.43 (0.82-1.09) H D 09/08/17 07:40 Assessment/Plan POD # 4 exploratory laparotomy/ SBO Leukocytosis Lactic acidosis- resolved Renal failure-improved Valvular heart disease For follow up CT abdomen/ pelvis today Continue empiric zosyn/ flagyl
--- NOTE | 2017-09-08 13:18 | PN ---
Teaching Attending Note Name of Resident: Evonne Walton ATTENDING PHYSICIAN STATEMENT I saw and evaluated the patient. I reviewed the resident's note and discussed the case with the resident. I agree with the resident's findings and plan as documented. SUBJECTIVE: Patient seen and examined in the ICU. Awake and interactive. Remains on Phenylephrine for hemodynamic support. For CT Abdomen/Pelvis OBJECTIVE: Intake & Output 09/05/17 09/06/17 09/07/17 09/08/17 23:59 23:59 23:59 23:59 Intake Total 1150 5850 12804 640 Output Total 1650 2300 Balance -500 3550 16572 640 Weight 189 lb 6.4 oz 193 lb 12.8 oz 200 lb 4.8 oz 204 lb 3.2 oz Last Vital Signs Temp Pulse Resp BP Pulse Ox 97.3 F L 86 20 99/62 100 09/08/17 12:00 09/08/17 12:00 09/08/17 12:00 09/08/17 12:00 09/07/17 21:00 Active Medications Chlorhexidine Gluconate (Hibiclens For Decolonization -) 1 applic TP HS MELISSA Last Admin: 09/08/17 00:12 Dose: 1 applic Hydromorphone HCl (Dilaudid Injection -) 1 mg IVPB Q4H PRN PRN Reason: PAIN Last Admin: 09/04/17 13:40 Dose: 1 mg Piperacillin Sod/Tazobactam (Sod 3.375 gm/ Dextrose) 50 mls @ 100 mls/hr IVPB Q8H-IV MELISSA PRN Reason: Protocol Last Admin: 09/08/17 09:38 Dose: 100 mls/hr Metronidazole (Flagyl 250mg Premixed Ivpb -) 250 mg in 50 mls @ 50 mls/hr IVPB Q8H-IV MELISSA Last Admin: 09/08/17 09:38 Dose: 50 mls/hr Dextrose/Sodium Chloride (D5-1/2ns -) 1,000 mls @ 100 mls/hr IV ASDIR MELISSA Last Admin: 09/08/17 08:00 Dose: 100 mls/hr Phenylephrine HCl 20,000 mcg/ (Sodium Chloride) 250 mls @ 37.5 mls/hr IVPB ASDIR MELISSA; 50 MCG/MIN PRN Reason: Protocol Last Admin: 09/08/17 00:08 Dose: 26 mcg/min, 19.5 mls/hr Insulin Aspart (Novolog Vial Sliding Scale -) 1 vial SQ Q6HPO [facility] PRN Reason: Protocol Last Admin: 09/08/17 12:00 Dose: Not Given Metoprolol Tartrate (Lopressor -) 50 mg PO BID [facility] Last Admin: 09/08/17 09:38 Dose: Not Given Mupirocin (Bactroban Ointment (For Decolonization) -) 1 applic NS BID [facility] Stop: 09/09/17 09:59 Last Admin: 09/08/17 09:38 Dose: 1 applic Pantoprazole Sodium (Protonix Iv) 40 mg IVPUSH DAILY [facility] Last Admin: 09/08/17 09:38 Dose: 40 mg Rivaroxaban (Xarelto -) 15 mg PO DAILY@1800 [facility] Last Admin: 09/07/17 17:46 Dose: Not Given Gen: somnolent but arousable Heart: tachycardic, regular Lung: decreased breath sounds at the bases Abd: softly distended, hypoactive BS, mild tenderness Ext: no edema Laboratory Results - last 24 hr 09/03/17 09/07/17 09/07/17 22:40 05:35 17:10 WBC RBC Hgb Hct MCV MCH MCHC RDW Plt Count MPV Neutrophils % Lymphocytes % Monocytes % Eosinophils % Basophils % PT with INR INR PTT (Actin FS) Sodium 142 Potassium 3.2 L Chloride 103 Carbon Dioxide 30 Anion Gap 9 BUN 105 H* Creatinine 1.8 H Creat Clearance w eGFR 36.30 POC Glucometer [phone] Random Glucose 206 H Hemoglobin A1c % Calcium 6.6 L* Phosphorus 1.8 L Magnesium 2.4 Total Bilirubin 1.3 H D AST 18 ALT 16 D Alkaline Phosphatase 28 L Creatine Kinase 161 Creatine Kinase Index 1.1 CK-MB (CK-2) 1.891 Troponin I 0.08 H D B-Natriuretic Peptide 1730.41 H Total Protein 4.1 L Albumin 2.0 L Crossmatch See Detail 09/07/17 09/08/17 09/08/17 23:57 05:35 05:35 WBC 13.9 H RBC 3.55 L Hgb 8.9 L D Hct 27.1 L MCV 76.3 L MCH 25.1 L MCHC 32.9 RDW 16.6 H Plt Count 140 MPV 9.0 Neutrophils % 84.4 H Lymphocytes % 4.5 L D Monocytes % 10.4 H Eosinophils % 0.6 D Basophils % 0.1 PT with INR INR PTT (Actin FS) Sodium Potassium Chloride Carbon Dioxide Anion Gap BUN Creatinine Creat Clearance w eGFR POC Glucometer 201.38646 Random Glucose Hemoglobin A1c % 6.0 Calcium Phosphorus Magnesium Total Bilirubin AST ALT Alkaline Phosphatase Creatine Kinase Creatine Kinase Index CK-MB (CK-2) Troponin I B-Natriuretic Peptide Total Protein Albumin Crossmatch 09/08/17 09/08/17 09/08/17 05:35 05:35 06:01 WBC RBC Hgb Hct MCV MCH MCHC RDW Plt Count MPV Neutrophils % Lymphocytes % Monocytes % Eosinophils % Basophils % PT with INR Cancelled INR Cancelled PTT (Actin FS) Cancelled Sodium 140 Potassium 3.6 Chloride 102 Carbon Dioxide 27 Anion Gap 11 BUN 76 H D Creatinine 1.4 H D Creat Clearance w eGFR 48.52 POC Glucometer [phone] Random Glucose 187 H Hemoglobin A1c % Calcium 7.2 L Phosphorus 2.4 L D Magnesium 2.3 Total Bilirubin 1.0 D AST 28 D ALT 21 D Alkaline Phosphatase 28 L Creatine Kinase Creatine Kinase Index CK-MB (CK-2) Troponin I B-Natriuretic Peptide Total Protein 4.2 L Albumin 2.1 L Crossmatch 09/08/17 07:40 WBC RBC Hgb Hct MCV MCH MCHC RDW Plt Count MPV Neutrophils % Lymphocytes % Monocytes % Eosinophils % Basophils % PT with INR 16.20 H INR 1.43 H D PTT (Actin FS) 28.5 Sodium Potassium Chloride Carbon Dioxide Anion Gap BUN Creatinine Creat Clearance w eGFR POC Glucometer Random Glucose Hemoglobin A1c % Calcium Phosphorus Magnesium Total Bilirubin AST ALT Alkaline Phosphatase Creatine Kinase Creatine Kinase Index CK-MB (CK-2) Troponin I B-Natriuretic Peptide Total Protein Albumin Crossmatch ASSESSMENT AND PLAN: Small Bowel Obstruction/Pneumotosis s/p ex-lap/PARDEEP Sepsis Acute on Chronic Renal Failure Lactic Acidosis resolving Atrial fibrillation LV Diastolic Dysfunction Mitral Regurgitation CAD HTN DM Hypercholesterolemia - For CT - continue antibiotics - IVF - replete lytes - monitor urine output, creatinine - rate control - AC - monitor H/H - pain control - Incentive spirometry - OOB to chair - rehab/PT - PO per surgery - continue ICU monitoring - Wean pressors as tolerated Dr Arboleda Critical care time spent in reviewing chart, evaluating patient and formulating plan 35 min
--- NOTE | 2017-09-08 15:50 | PN ---
Progress Note (short form) - Note Progress Note: Spoke with patient's normal teacher education instructor, Dr. Riojas, office [phone], who was updated on the patient's situation. Read the results of the echo to him , and it seems this echo did not show the extent of the patient's valvular disease. It was noted to be a suboptimal study and also Dr. Riojas states these disease processes can be masked by hypotension if the patient was in fact hypotensive at the time of the study. Dr. Riojas's understanding is that the patient is on Xarelto at home only to prevent thrombosis in the setting of A-fib, and he has never had a thrombosis in the past. The patient suffered a fall and head injury several months ago and was off Xarelto for weeks after that incident without complication. The patient additionally had been instructed to be off Xarelto in preparation for his previously-scheduled cardiac cath and valve repair. For now , our consensus is that the risks of continued GI bleeding (melena) outweigh the risk of thrombosis. Xarelto will be held today and until melena has cleared.
[2017-09-08] MEDS: RIVAROXABAN 15 MG TABLET PO SCH (18:10)
--- NOTE | 2017-09-08 18:27 | PN ---
Progress Note, Physician History of Present Illness: Back on Neosynephrine gtt, abd distended concerning for post-op ileus, rate- controlled afib. - Current Medication List Current Medications: Active Medications Chlorhexidine Gluconate (Hibiclens For Decolonization -) 1 applic TP HS [facility] Last Admin: 09/08/17 00:12 Dose: 1 applic Hydromorphone HCl (Dilaudid Injection -) 1 mg IVPB Q4H PRN PRN Reason: PAIN Last Admin: 09/04/17 13:40 Dose: 1 mg Piperacillin Sod/Tazobactam (Sod 3.375 gm/ Dextrose) 50 mls @ 100 mls/hr IVPB Q8H-IV MELISSA PRN Reason: Protocol Last Admin: 09/08/17 17:14 Dose: 100 mls/hr Metronidazole (Flagyl 250mg Premixed Ivpb -) 250 mg in 50 mls @ 50 mls/hr IVPB Q8H-IV [facility]ELISSA Last Admin: 09/08/17 17:14 Dose: 50 mls/hr Dextrose/Sodium Chloride (D5-1/2ns -) 1,000 mls @ 100 mls/hr IV ASDIR [facility] Last Admin: 09/08/17 08:00 Dose: 100 mls/hr Phenylephrine HCl 20,000 mcg/ (Sodium Chloride) 250 mls @ 37.5 mls/hr IVPB ASDIR MELISSA; 50 MCG/MIN PRN Reason: Protocol Last Admin: 09/08/17 16:00 Dose: 26 mcg/min, 19.5 mls/hr Insulin Aspart (Novolog Vial Sliding Scale -) 1 vial SQ Q6HPO MELISSA PRN Reason: Protocol Last Admin: 09/08/17 18:03 Dose: 2 units Metoprolol Tartrate (Lopressor -) 50 mg PO BID [facility] Last Admin: 09/08/17 09:38 Dose: Not Given Mupirocin (Bactroban Ointment (For Decolonization) -) 1 applic NS BID [facility] Stop: 09/09/17 09:59 Last Admin: 09/08/17 09:38 Dose: 1 applic Pantoprazole Sodium (Protonix Iv) 40 mg IVPUSH DAILY [facility] Last Admin: 09/08/17 09:38 Dose: 40 mg Rivaroxaban (Xarelto -) 15 mg PO DAILY@1800 [facility] Last Admin: 09/08/17 18:10 Dose: Not Given - Objective Vital Signs: Vital Signs Temperature 97.6 F 09/08/17 18:00 Pulse Rate 93 H 09/08/17 18:00 Respiratory Rate 17 09/08/17 18:00 Blood Pressure 91/61 09/08/17 18:00 O2 Sat by Pulse Oximetry (%) 100 09/07/17 21:00 Constitutional: Yes: No Distress, Calm Neck: Yes: Supple Cardiovascular: Yes: Pulse Irregular, Murmur (2/6 SM) Respiratory: Yes: Regular, Diminished Gastrointestinal: Yes: Distention Edema: Yes Edema: LLE: Trace, RLE: Trace Labs: CBC, BMP 09/08/17 05:35 09/08/17 05:35 INR, PTT INR 1.43 (0.82-1.09) H D 09/08/17 07:40 Problem List - Problems (1) Macfa-ef-nzrdwiz kidney injury Code(s): N17.9 - ACUTE KIDNEY FAILURE, UNSPECIFIED; N18.9 - CHRONIC KIDNEY DISEASE, UNSPECIFIED Qualifiers: Chronic kidney disease stage: unspecified stage (2) Lactic acidosis Code(s): E87.2 - ACIDOSIS (3) Status post exploratory laparotomy Code(s): Z98.890 - OTHER SPECIFIED POSTPROCEDURAL STATES (4) Pneumatosis intestinalis of small intestine Code(s): K63.89 - OTHER SPECIFIED DISEASES OF INTESTINE (5) Small bowel obstruction Code(s): K56.609 - UNSP INTESTNL OBST, UNSP TO PARTIAL VERSUS COMPLETE OBST (6) Hypertensive cardiomyopathy Code(s): I11.9 - HYPERTENSIVE HEART DISEASE WITHOUT HEART FAILURE; I43 - CARDIOMYOPATHY IN DISEASES CLASSIFIED ELSEWHERE Qualifiers: Heart failure presence: without heart failure Qualified Code(s): I11.9 - Hypertensive heart disease without heart failure; I43 - Cardiomyopathy in diseases classified elsewhere; I43 - Cardiomyopathy in diseases classified elsewhere; I43 - Cardiomyopathy in diseases classified elsewhere; I43 - Cardiomyopathy in diseases classified elsewhere (7) Moderate aortic regurgitation Code(s): I35.1 - NONRHEUMATIC AORTIC (VALVE) INSUFFICIENCY (8) Moderate to severe mitral regurgitation Code(s): I34.0 - NONRHEUMATIC MITRAL (VALVE) INSUFFICIENCY (9) Persistent atrial fibrillation Code(s): I48.1 - PERSISTENT ATRIAL FIBRILLATION (10) T2DM (type 2 diabetes mellitus) Code(s): E11.9 - TYPE 2 DIABETES MELLITUS WITHOUT COMPLICATIONS Qualifiers: Diabetes mellitus complication detail: with diabetic retinopathy Assessment/Plan 1. Small intestinal obstruction, secondary to a band of adhesions s/p exploratory laparotomy, lysis of adhesions, release of intestinal obstruction. Post-op ileus vs recurrence. 2. Chronic diastolic failure with underlying moderate - severe MR, moderate AR, TR 3. CAD, angina pectoris 4. Persistent atrial fibrillation [id number] on NOAC 5. HTN/HCVD 6. Type 2 DM 7. Hyperlipidemia 8. Acute on CKD due to hemodynamic alterations improving 9. Lactic acidosis and leukocytosis PLAN: 1. Monitor renal function and electrolytes. Full liquid diet as tolerated 2. Resume Diovan 80 mg qd and Lopressor 50 mg bid as hemodynamics tolerate once oral intake resumed 3. Wean off Neosynephrine gtt for MAP>65 mmHg 4. D/debbi Xarelto 15 qd pending oral intake, complete empiric abx course 5. Mitral and tricuspid valve repair/replacement postponed until recovery from this admission
[2017-09-09] MEDS ORDERED: HEMOQUE TEST 1 EACH EACH ONE (00:04)
[2017-09-09] MEDS ORDERED: PT OWN MED DRAWER 7, Y5N ONE (00:45)
[2017-09-09] MEDS: PIPERACILLIN/TAZOB 3.375 GM 3.375 GM in DEXTROSE 5%-WATER - 50 ML IVPB SCH (02:30)
[2017-09-09] MEDS ORDERED: PHENYLEPHRINE HCL 10 MG/1 ML SINGLE DOSE VIAL ONE (04:02)
[2017-09-09] MEDS: PHENYLEPHRINE HCL 20,000 MCG in SODIUM CHLORIDE 248 ML IVPB SCH (04:27)
[2017-09-09] MEDS: INSULIN SLIDING SCALE (NOVOLOG) 1 VIAL SQ SCH ×4 (06:33→18:02)
[2017-09-09 06:46] LABS: BASO % 0.2 % (0-2.0); EOS % 1.6 % (0-4.5); HEMOGLOBIN 8.2 GM/dL (11.7-16.9); LYMPH % 6.2 % (8-40); MCH 25.1 pg (25.7-33.7); MCHC 32.7 g/dl (32.0-35.9); MEAN PLT VOLUME 8.6 fl (7.5-11.1); MONO % 11.8 % (3.8-10.2); NEUT % 80.2 % (42.8-82.8); PLATELET COUNT 139 K/MM3 (134-434); RBC 3.25 M/mm3 (4.00-5.60); WHITE BLOOD COUNT 9.7 K/mm3 (4.0-10.0)
[2017-09-09 06:59] LABS: ALBUMIN 1.9 g/dl (3.4-5.0); ANION GAP 10 (8-16); BLOOD UREA NITROGEN 45 mg/dL (7-18); CHLORIDE 105 mmol/L (98-107); CO2 25 mmol/L (21-32); GLUCOSE,RANDOM 146 mg/dL (74-106); SODIUM 140 mmol/L (136-145)
--- NOTE | 2017-09-09 06:59 | PN ---
Progress Note, Physician Chief Complaint: ID Lethargic On Pressors Melanotic stools per nursing staff Remains on Zosyn Day 5 post op though no fevers - Current Medication List Current Medications: Active Medications Chlorhexidine Gluconate (Hibiclens For Decolonization -) 1 applic TP HS [facility] Last Admin: 09/08/17 21:35 Dose: 1 applic Hydromorphone HCl (Dilaudid Injection -) 1 mg IVPB Q4H PRN PRN Reason: PAIN Last Admin: 09/04/17 13:40 Dose: 1 mg Piperacillin Sod/Tazobactam (Sod 3.375 gm/ Dextrose) 50 mls @ 100 mls/hr IVPB Q8H-IV MELISSA PRN Reason: Protocol Last Admin: 09/09/17 02:30 Dose: 100 mls/hr Metronidazole (Flagyl 250mg Premixed Ivpb -) 250 mg in 50 mls @ 50 mls/hr IVPB Q8H-IV [facility] Last Admin: 09/09/17 02:00 Dose: 50 mls/hr Dextrose/Sodium Chloride (D5-1/2ns -) 1,000 mls @ 100 mls/hr IV ASDIR [facility] Last Admin: 09/08/17 22:11 Dose: 100 mls/hr Phenylephrine HCl 20,000 mcg/ (Sodium Chloride) 250 mls @ 37.5 mls/hr IVPB ASDIR MELISSA; 50 MCG/MIN PRN Reason: Protocol Last Admin: 09/09/17 04:27 Dose: 26 mcg/min, 19.5 mls/hr Insulin Aspart (Novolog Vial Sliding Scale -) 1 vial SQ Q6HPO MELISSA PRN Reason: Protocol Last Admin: 09/09/17 06:33 Dose: 2 units Metoprolol Tartrate (Lopressor -) 50 mg PO BID [facility] Last Admin: 09/08/17 21:34 Dose: Not Given Mupirocin (Bactroban Ointment (For Decolonization) -) 1 applic NS BID [facility] Stop: 09/09/17 09:59 Last Admin: 09/08/17 21:34 Dose: 1 applic Pantoprazole Sodium (Protonix Iv) 40 mg IVPUSH DAILY [facility] Last Admin: 09/08/17 09:38 Dose: 40 mg Rivaroxaban (Xarelto -) 15 mg PO DAILY@1800 [facility] Last Admin: 09/08/17 18:10 Dose: Not Given - Objective Vital Signs: Vital Signs Temperature 97.5 F L 09/09/17 06:34 Pulse Rate 88 09/09/17 06:00 Respiratory Rate 20 09/09/17 06:00 Blood Pressure 93/53 09/09/17 06:00 O2 Sat by Pulse Oximetry (%) 100 09/08/17 21:00 Constitutional: Yes: Other (Letargic) HENT: Yes: WNL, Atraumatic Neck: Yes: WNL, Supple Cardiovascular: Yes: Pulse Irregular, S1, S2 Respiratory: Yes: WNL, Regular, CTA Bilaterally Gastrointestinal: Yes: Distention, Other (mid line incision). No: Tenderness, Tenderness, Rebound Labs: INR, PTT INR 1.43 (0.82-1.09) H D 09/08/17 07:40 Problem List - Problems (1) Melena Code(s): K92.1 - MELENA (2) Lactic acidosis Code(s): E87.2 - ACIDOSIS (3) Small bowel obstruction Code(s): K56.609 - UNSP INTESTNL OBST, UNSP TO PARTIAL VERSUS COMPLETE OBST (4) Status post exploratory laparotomy Code(s): Z98.890 - OTHER SPECIFIED POSTPROCEDURAL STATES Assessment/Plan Microbiology 09/03/17 21:33 Urine - Urine Clean Catch Urine Culture - Final NO GROWTH OBTAINED 09/03/17 17:55 Blood - Peripheral Venous Blood Culture - Final NO GROWTH AFTER 5 DAYS INCUBATION 09/03/17 17:55 Blood - Peripheral Venous Blood Culture - Final NO GROWTH AFTER 5 DAYS INCUBATION Laboratory Tests 09/08/17 09/08/17 09/08/17 05:35 05:35 07:40 WBC 13.9 H Hgb 8.9 L D Hct 27.1 L Plt Count 140 INR 1.43 H D BUN 76 H D Creat Clearance w eGFR 48.52 Total Bilirubin 1.0 D Alkaline Phosphatase 28 L Assessment Day 5 laparotomy small bowel obstruction lysis of adhesions Atrial fibrillation GI bleeding Xarelto held Leukocytosis ? secondary acute bleed DM Chronic kidney disease Plan At this point would stop antibiotic unclear if any infection at this time Observe for now ? abd remains distended Critical care time spent 35 mintutes Jono CHRISTIAN
[2017-09-09 07:04] LABS: ALK PHOS 31 U/L (45-117); BILIRUBIN,TOTAL 0.9 mg/dL (0.2-1.0); CREATININE 1.2 mg/dL (0.7-1.3); PHOSPHOROUS 1.6 mg/dL (2.5-4.9); SGPT/ALT 26 U/L (12-78)
[2017-09-09 07:33] LABS: MAGNESIUM 2.3 mg/dL (1.8-2.4); POTASSIUM 3.9 mmol/L (3.5-5.1); SGOT/AST 31 U/L (15-37)
[2017-09-09] MEDS: DEXTROSE 5%-0.45% SALINE 1,000 ML IV SCH (09:22)
[2017-09-09] MEDS: PANTOPRAZOLE SODIUM 40 MG VIAL IVPUSH SCH (10:12)
[2017-09-09] MEDS: METOPROLOL TARTRATE 50 MG TABLET (FP) PO SCH ×2 (10:12→22:31)
--- NOTE | 2017-09-09 10:59 | PN ---
Progress Note, Physician - Current Medication List Current Medications: Active Medications Chlorhexidine Gluconate (Hibiclens For Decolonization -) 1 applic TP HS [facility] Last Admin: 09/08/17 21:35 Dose: 1 applic Hydromorphone HCl (Dilaudid Injection -) 1 mg IVPB Q4H PRN PRN Reason: PAIN Last Admin: 09/04/17 13:40 Dose: 1 mg Dextrose/Sodium Chloride (D5-1/2ns -) 1,000 mls @ 100 mls/hr IV ASDIR MELIS[facility] Last Admin: 09/09/17 09:22 Dose: 100 mls/hr Phenylephrine HCl 20,000 mcg/ (Sodium Chloride) 250 mls @ 37.5 mls/hr IVPB ASDIR MELISSA; 50 MCG/MIN PRN Reason: Protocol Last Admin: 09/09/17 04:27 Dose: 26 mcg/min, 19.5 mls/hr Insulin Aspart (Novolog Vial Sliding Scale -) 1 vial SQ Q6HPO MELISSA PRN Reason: Protocol Last Admin: 09/09/17 06:33 Dose: 2 units Metoprolol Tartrate (Lopressor -) 50 mg PO BID [facility] Last Admin: 09/09/17 10:12 Dose: Not Given Pantoprazole Sodium (Protonix Iv) 40 mg IVPUSH DAILY [facility] Last Admin: 09/09/17 10:12 Dose: 40 mg Rivaroxaban (Xarelto -) 15 mg PO DAILY@1800 [facility] Last Admin: 09/08/17 18:10 Dose: Not Given - Objective Vital Signs: Vital Signs Temperature 97.8 F 09/09/17 10:00 Pulse Rate 88 09/09/17 10:00 Respiratory Rate 20 09/09/17 10:00 Blood Pressure 96/77 09/09/17 10:00 O2 Sat by Pulse Oximetry (%) 100 09/08/17 21:00 Labs: CBC, BMP 09/09/17 06:15 09/09/17 06:15 INR, PTT INR 1.43 (0.82-1.09) H D 09/08/17 07:40 Problem List - Problems (1) Abdominal pain Code(s): R10.9 - UNSPECIFIED ABDOMINAL PAIN Qualifiers: Abdominal location: left upper quadrant Qualified Code(s): R10.12 - Left upper quadrant pain (2) Small bowel obstruction Code(s): K56.609 - UNSP INTESTNL OBST, UNSP TO PARTIAL VERSUS COMPLETE OBST (3) Heart failure, diastolic, with acute decompensation Code(s): I50.33 - ACUTE ON CHRONIC DIASTOLIC (CONGESTIVE) HEART FAILURE (4) Moderate to severe mitral regurgitation Code(s): I34.0 - NONRHEUMATIC MITRAL (VALVE) INSUFFICIENCY (5) Pneumatosis intestinalis of small intestine Code(s): K63.89 - OTHER SPECIFIED DISEASES OF INTESTINE Assessment/Plan Surgery: Patient is afebrile. Abdomen is soft, not tender. No vomiting. He has had a large bowel movement. Hematocrit is gradually dropping, still has some melena. WBC is normal. He on Zosyn and flagyl. No acute surgical issue, at this time.
--- NOTE | 2017-09-09 12:36 | PN ---
Progress Note (short form) - Note Progress Note: PULM/CCM SUBJECTIVE: Patient seen and examined in the ICU. Awake and interactive. Remains on Phenylephrine for hemodynamic support. have been unable to wean off for unclear reasons OBJECTIVE: Vital Signs Temp 97.8 F 09/09/17 10:00 Pulse 88 09/09/17 10:00 Resp 20 09/09/17 10:00 BP 96/77 09/09/17 10:00 Pulse Ox 100 09/09/17 09:00 Intake & Output 09/08/17 09/09/17 09/09/17 23:59 11:59 23:59 Intake Total 1684 1584 Balance 1684 1584 Weight 93.168 kg Intake: IV 1434 1434 D51/2 NS 1200 1200 Faisal-Synephrine - 20,000 234 234 Mcg In Normal Saline - 248 ml @ 50 MCG/MIN 37.5 mls/hr IVPB ASDIR MELISSA Rx# :[id number] IVPB 200 150 Oral 50 Other: Voiding Method Diaper Diaper # Unmeasured Voids Void 2 1 Bowel Movement Yes # Bowel Movements 1 Weight Measurement Method Built in [facility] Active Medications Chlorhexidine Gluconate (Hibiclens For Decolonization -) 1 applic TP HS [facility] Last Admin: 09/08/17 21:35 Dose: 1 applic Hydromorphone HCl (Dilaudid Injection -) 1 mg IVPB Q4H PRN PRN Reason: PAIN Last Admin: 09/04/17 13:40 Dose: 1 mg Dextrose/Sodium Chloride (D5-1/2ns -) 1,000 mls @ 100 mls/hr IV ASDIR [facility] Last Admin: 09/09/17 09:22 Dose: 100 mls/hr Phenylephrine HCl 20,000 mcg/ (Sodium Chloride) 250 mls @ 37.5 mls/hr IVPB ASDIR MELISSA; 50 MCG/MIN PRN Reason: Protocol Last Admin: 09/09/17 04:27 Dose: 26 mcg/min, 19.5 mls/hr Insulin Aspart (Novolog Vial Sliding Scale -) 1 vial SQ Q6HPO MELISSA PRN Reason: Protocol Last Admin: 09/09/17 06:33 Dose: 2 units Metoprolol Tartrate (Lopressor -) 50 mg PO BID [facility] Last Admin: 09/09/17 10:12 Dose: Not Given Pantoprazole Sodium (Protonix Iv) 40 mg IVPUSH DAILY [facility] Last Admin: 09/09/17 10:12 Dose: 40 mg Rivaroxaban (Xarelto -) 15 mg PO DAILY@1800 [facility] Last Admin: 09/08/17 18:10 Dose: Not Given Gen: awakens to loud voice Heart: tachycardic, regular Lung: diminished bases Abd: softly distended, hypoactive BS, non tender Ext: no edema Neuro: non focal exam CBCD WBC 9.7 K/mm3 (4.0-10.0) D 09/09/17 06:15 RBC 3.25 M/mm3 (4.00-5.60) L 09/09/17 06:15 Hgb 8.2 GM/dL (11.7-16.9) L 09/09/17 06:15 Hct 25.0 % (35.4-49) L 09/09/17 06:15 MCV 77.0 fl (80-96) L 09/09/17 06:15 MCHC 32.7 g/dl (32.0-35.9) 09/09/17 06:15 RDW 17.0 % (11.9-15.9) H 09/09/17 06:15 Plt Count 139 K/MM3 (134-434) 09/09/17 06:15 MPV 8.6 fl (7.5-11.1) 09/09/17 06:15 CMP Sodium 140 mmol/L (136-145) 09/09/17 06:15 Potassium 3.9 mmol/L (3.5-5.1) 09/09/17 06:15 Chloride 105 mmol/L (98-107) 09/09/17 06:15 Carbon Dioxide 25 mmol/L (21-32) 09/09/17 06:15 Anion Gap 10 (8-16) 09/09/17 06:15 BUN 45 mg/dL (7-18) H D 09/09/17 06:15 Creatinine 1.2 mg/dL (0.7-1.3) 09/09/17 06:15 Creat Clearance w eGFR 57.96 (>60) 09/09/17 06:15 Calcium 7.0 mg/dL (8.5-10.1) L 09/09/17 06:15 Total Bilirubin 0.9 mg/dL (0.2-1.0) 09/09/17 06:15 AST 31 U/L (15-37) 09/09/17 06:15 ALT 26 U/L (12-78) D 09/09/17 06:15 Alkaline Phosphatase 31 U/L (45-117) L 09/09/17 06:15 Total Protein 4.0 g/dl (6.4-8.2) L 09/09/17 06:15 Albumin 1.9 g/dl (3.4-5.0) L 09/09/17 06:15 ASSESSMENT AND PLAN: Small Bowel Obstruction/Pneumotosis s/p ex-lap/PARDEEP Sepsis Acute on Chronic Renal Failure Lactic Acidosis resolving Atrial fibrillation LV Diastolic Dysfunction Mitral Regurgitation CAD HTN DM Hypercholesterolemia - phenyl coming off - off abx - IVF - replete lytes - monitor urine output, creatinine - rate control - AC - monitor H/H - pain control - Incentive spirometry - OOB to chair - rehab/PT - PO per surgery - ok for floor once off phenyl Brandi ACNP [id number]
--- NOTE | 2017-09-09 13:50 | PN ---
Progress Note, Physician History of Present Illness: Remains on Neosynephrine gtt, abd distension and post-op ileus resolving, tolerating oral intake, rate-controlled afib. Still with melanotic stools. - Current Medication List Current Medications: Active Medications Chlorhexidine Gluconate (Hibiclens For Decolonization -) 1 applic TP HS [facility] Last Admin: 09/08/17 21:35 Dose: 1 applic Hydromorphone HCl (Dilaudid Injection -) 1 mg IVPB Q4H PRN PRN Reason: PAIN Last Admin: 09/04/17 13:40 Dose: 1 mg Dextrose/Sodium Chloride (D5-1/2ns -) 1,000 mls @ 100 mls/hr IV ASDIR [facility] Last Admin: 09/09/17 09:22 Dose: 100 mls/hr Phenylephrine HCl 20,000 mcg/ (Sodium Chloride) 250 mls @ 37.5 mls/hr IVPB ASDIR MELISSA; 50 MCG/MIN PRN Reason: Protocol Last Admin: 09/09/17 04:27 Dose: 26 mcg/min, 19.5 mls/hr Insulin Aspart (Novolog Vial Sliding Scale -) 1 vial SQ Q6HPO MELISSA PRN Reason: Protocol Last Admin: 09/09/17 06:33 Dose: 2 units Metoprolol Tartrate (Lopressor -) 50 mg PO BID [facility] Last Admin: 09/09/17 10:12 Dose: Not Given Pantoprazole Sodium (Protonix Iv) 40 mg IVPUSH DAILY [facility] Last Admin: 09/09/17 10:12 Dose: 40 mg Rivaroxaban (Xarelto -) 15 mg PO DAILY@1800 [facility] Last Admin: 09/08/17 18:10 Dose: Not Given - Objective Vital Signs: Vital Signs Temperature 98.3 F 09/09/17 13:47 Pulse Rate 88 09/09/17 13:47 Respiratory Rate 20 09/09/17 13:47 Blood Pressure 101/52 09/09/17 13:47 O2 Sat by Pulse Oximetry (%) 100 09/09/17 09:00 Constitutional: Yes: No Distress, Calm, Thin Neck: Yes: Supple Cardiovascular: Yes: Pulse Irregular, Murmur (2/6 SM) Respiratory: Yes: Regular, Diminished Gastrointestinal: Yes: Soft, Hypoactive Bowel Sounds Edema: No Labs: CBC, BMP 09/09/17 06:15 09/09/17 06:15 INR, PTT INR 1.43 (0.82-1.09) H D 09/08/17 07:40 Problem List - Problems (1) [id number] kidney injury Code(s): N17.9 - ACUTE KIDNEY FAILURE, UNSPECIFIED; N18.9 - CHRONIC KIDNEY DISEASE, UNSPECIFIED Qualifiers: Chronic kidney disease stage: unspecified stage (2) Lactic acidosis Code(s): E87.2 - ACIDOSIS (3) Status post exploratory laparotomy Code(s): Z98.890 - OTHER SPECIFIED POSTPROCEDURAL STATES (4) Pneumatosis intestinalis of small intestine Code(s): K63.89 - OTHER SPECIFIED DISEASES OF INTESTINE (5) Small bowel obstruction Code(s): K56.609 - UNSP INTESTNL OBST, UNSP TO PARTIAL VERSUS COMPLETE OBST (6) Hypertensive cardiomyopathy Code(s): I11.9 - HYPERTENSIVE HEART DISEASE WITHOUT HEART FAILURE; I43 - CARDIOMYOPATHY IN DISEASES CLASSIFIED ELSEWHERE Qualifiers: Heart failure presence: without heart failure Qualified Code(s): I11.9 - Hypertensive heart disease without heart failure; I43 - Cardiomyopathy in diseases classified elsewhere; I43 - Cardiomyopathy in diseases classified elsewhere; I43 - Cardiomyopathy in diseases classified elsewhere; I43 - Cardiomyopathy in diseases classified elsewhere (7) Moderate aortic regurgitation Code(s): I35.1 - NONRHEUMATIC AORTIC (VALVE) INSUFFICIENCY (8) Moderate to severe mitral regurgitation Code(s): I34.0 - NONRHEUMATIC MITRAL (VALVE) INSUFFICIENCY (9) Persistent atrial fibrillation Code(s): I48.1 - PERSISTENT ATRIAL FIBRILLATION (10) T2DM (type 2 diabetes mellitus) Code(s): E11.9 - TYPE 2 DIABETES MELLITUS WITHOUT COMPLICATIONS Qualifiers: Diabetes mellitus complication detail: with diabetic retinopathy Assessment/Plan 1. Small intestinal obstruction, secondary to a band of adhesions s/p exploratory laparotomy, lysis of adhesions, release of intestinal obstruction. Post-op ileus vs recurrence. 2. Chronic diastolic failure with underlying moderate - severe MR, moderate AR, TR 3. CAD, angina pectoris 4. Persistent atrial fibrillation [id number] on NOAC 5. HTN/HCVD 6. Type 2 DM 7. Hyperlipidemia 8. Acute on CKD due to hemodynamic alterations improving 9. Lactic acidosis and leukocytosis PLAN: 1. Monitor renal function and electrolytes. Full liquid diet as tolerated 2. Resume Diovan 80 mg qd and Lopressor 50 mg bid as hemodynamics tolerate now that oral intake resumed 3. Wean off Neosynephrine gtt for MAP>65 mmHg 4. Resumed Xarelto 15 qd as hemostasis achieved, f/u Hgb, completed empiric abx course 5. Mitral and tricuspid valve repair/replacement postponed until recovery from this admission
--- NOTE | 2017-09-09 14:27 | PN ---
Progress Note, Physician Chief Complaint: Feels better - Current Medication List Current Medications: Active Medications Chlorhexidine Gluconate (Hibiclens For Decolonization -) 1 applic TP HS [facility] Last Admin: 09/08/17 21:35 Dose: 1 applic Hydromorphone HCl (Dilaudid Injection -) 1 mg IVPB Q4H PRN PRN Reason: PAIN Last Admin: 09/04/17 13:40 Dose: 1 mg Dextrose/Sodium Chloride (D5-1/2ns -) 1,000 mls @ 100 mls/hr IV ASDIR [facility] Last Admin: 09/09/17 09:22 Dose: 100 mls/hr Phenylephrine HCl 20,000 mcg/ (Sodium Chloride) 250 mls @ 37.5 mls/hr IVPB ASDIR [facility]; 50 MCG/MIN PRN Reason: Protocol Last Admin: 09/09/17 04:27 Dose: 26 mcg/min, 19.5 mls/hr Insulin Aspart (Novolog Vial Sliding Scale -) 1 vial SQ Q6HPO [facility] PRN Reason: Protocol Last Admin: 09/09/17 06:33 Dose: 2 units Metoprolol Tartrate (Lopressor -) 50 mg PO BID [facility] Last Admin: 09/09/17 10:12 Dose: Not Given Pantoprazole Sodium (Protonix Iv) 40 mg IVPUSH DAILY [facility] Last Admin: 09/09/17 10:12 Dose: 40 mg Rivaroxaban (Xarelto -) 15 mg PO DAILY@1800 [facility] Last Admin: 09/08/17 18:10 Dose: Not Given - Objective Vital Signs: Vital Signs Temperature 98.3 F 09/09/17 13:47 Pulse Rate 88 09/09/17 13:47 Respiratory Rate 20 09/09/17 13:47 Blood Pressure 101/52 09/09/17 13:47 O2 Sat by Pulse Oximetry (%) 100 09/09/17 09:00 Constitutional: Yes: Calm Eyes: Yes: WNL HENT: Yes: WNL Neck: Yes: WNL Cardiovascular: Yes: WNL Respiratory: Yes: On Nasal O2 Gastrointestinal: Yes: Normal Bowel Sounds, Hypoactive Bowel Sounds ...Rectal Exam: Yes: Deferred Musculoskeletal: Yes: Muscle Weakness Edema: LLE: 1+, RLE: 1+ Neurological: Yes: Oriented Labs: CBC, BMP 09/09/17 06:15 09/09/17 06:15 INR, PTT INR 1.43 (0.82-1.09) H D 09/08/17 07:40 Assessment/Plan Continue asper ICU attendings
[2017-09-09] MEDS: RIVAROXABAN 15 MG TABLET PO SCH (18:03)
[2017-09-09] MEDS ORDERED: morphine SULFATE 4 MG/ML VIAL ONE (20:37)
[2017-09-09] MEDS ORDERED: morphine SULFATE 4 MG/ML VIAL IVPUSH PRN (20:42)
[2017-09-09] MEDS ORDERED: METOPROLOL TARTRATE 5 MG/5 ML VIAL IVPUSH ONE (20:43)
[2017-09-09 21:25] LABS: HEMATOCRIT 27.8 % (35.4-49); HEMOGLOBIN 9.1 GM/dL (11.7-16.9); MCH 25.3 pg (25.7-33.7); MCHC 32.7 g/dl (32.0-35.9); MEAN CELL VOLUME 77.2 fl (80-96); MEAN PLT VOLUME 8.1 fl (7.5-11.1); PLATELET COUNT 166 K/MM3 (134-434); RDW 17.2 % (11.9-15.9); WHITE BLOOD COUNT 12.2 K/mm3 (4.0-10.0)
[2017-09-09 21:50] LABS: ALBUMIN 2.2 g/dl (3.4-5.0); ALK PHOS 41 U/L (45-117); ANION GAP 8 (8-16); BILIRUBIN,TOTAL 0.7 mg/dL (0.2-1.0); BLOOD UREA NITROGEN 35 mg/dL (7-18); CHLORIDE 108 mmol/L (98-107); CO2 25 mmol/L (21-32); CREATININE 1.3 mg/dL (0.7-1.3); GLUCOSE,RANDOM 138 mg/dL (74-106); POTASSIUM 3.7 mmol/L (3.5-5.1); SGOT/AST 34 U/L (15-37); SGPT/ALT 32 U/L (12-78); SODIUM 141 mmol/L (136-145); TOT PROT 4.3 g/dl (6.4-8.2)
[2017-09-09 21:51] LABS: N-TERMINAL BNP 4475.96 pg/ml (5-450)
[2017-09-09 22:00] LABS: CALCIUM 6.7 mg/dL (8.5-10.1)
[2017-09-09] MEDS ORDERED: CALCIUM GLUCONATE 10% - 1,000 MG/10 ML VIAL IVPB ONE (22:14)
[2017-09-09] MEDS ORDERED: METOPROLOL TARTRATE 5 MG/5 ML VIAL IVPUSH PRN (22:18)
[2017-09-09] MEDS: CHLORHEXIDINE GLUCONATE 4% CLEANSER FOR DECOLONIZATION TP SCH (22:31)
[2017-09-10] MEDS: INSULIN SLIDING SCALE (NOVOLOG) 1 VIAL SQ SCH ×4 (00:54→17:39)
[2017-09-10] MEDS ORDERED: FUROSEMIDE 40 MG/4 ML INJECTABLE VIAL IVPUSH ONE (05:32)
[2017-09-10 06:22] LABS: HEMATOCRIT 27.9 % (35.4-49); MCHC 32.1 g/dl (32.0-35.9); MEAN CELL VOLUME 77.9 fl (80-96); MEAN PLT VOLUME 8.3 fl (7.5-11.1); PLATELET COUNT 138 K/MM3 (134-434); RBC 3.58 M/mm3 (4.00-5.60); RDW 17.4 % (11.9-15.9); WHITE BLOOD COUNT 7.9 K/mm3 (4.0-10.0)
[2017-09-10 06:50] LABS: CHLORIDE 107 mmol/L (98-107); POTASSIUM 4.1 mmol/L (3.5-5.1); SODIUM 143 mmol/L (136-145)
--- NOTE | 2017-09-10 06:52 | PN ---
Progress Note, Physician Chief Complaint: ID Off antibiotics now as of yesterday Cardiac issues over night ? Demand ischemia with EKG changes noted - Current Medication List Current Medications: Active Medications Chlorhexidine Gluconate (Hibiclens For Decolonization -) [address] [facility] Last Admin: 09/09/17 22:31 Dose: 1 applic Hydromorphone HCl (Dilaudid Injection -) 1 mg IVPB Q4H PRN PRN Reason: PAIN Last Admin: 09/04/17 13:40 Dose: 1 mg Phenylephrine HCl 20,000 mcg/ (Sodium Chloride) 250 mls @ 37.5 mls/hr IVPB ASDIR [facility]; 50 MCG/MIN PRN Reason: Protocol Last Titration: 09/09/17 22:00 Dose: 0 mcg/min, 0 mls/hr Insulin Aspart (Novolog Vial Sliding Scale -) 1 vial SQ Q6HPO [facility] PRN Reason: Protocol Last Admin: 09/10/17 06:02 Dose: Not Given Metoprolol Tartrate (Lopressor -) [address] [facility] Last Admin: 09/09/17 22:31 Dose: Not Given Metoprolol Tartrate (Lopressor Injection -) 2.5 mg IVPUSH ONCE PRN PRN Reason: TACHYCARDIA Morphine Sulfate (Morphine Sulfate) 1 mg IVPUSH Q3H PRN PRN Reason: PAIN LEVEL 1 - 3 Last Admin: 09/09/17 20:49 Dose: 1 mg Pantoprazole Sodium (Protonix Iv) [address] [facility] Last Admin: 09/09/17 10:12 Dose: 40 mg - Objective Vital Signs: Vital Signs Temperature 98.0 F 09/10/17 06:00 Pulse Rate 94 H 09/10/17 06:00 Respiratory Rate 20 09/10/17 06:00 Blood Pressure 110/64 09/10/17 06:00 O2 Sat by Pulse Oximetry (%) 98 09/09/17 20:04 Constitutional: Yes: No Distress HENT: Yes: WNL, Atraumatic Neck: Yes: WNL, Supple Cardiovascular: Yes: S1, S2 Respiratory: Yes: WNL, Regular, CTA Bilaterally Gastrointestinal: Yes: Soft, Other (surgical incision). No: Tenderness, Tenderness, Epigastrium Edema: Yes Labs: INR, PTT INR 1.43 (0.82-1.09) H D 09/08/17 07:40 Problem List - Problems (1) Melena Code(s): K92.1 - MELENA (2) Lactic acidosis Code(s): E87.2 - ACIDOSIS (3) Small bowel obstruction Code(s): K56.609 - UNSP INTESTNL OBST, UNSP TO PARTIAL VERSUS COMPLETE OBST (4) Status post exploratory laparotomy Code(s): Z98.890 - OTHER SPECIFIED POSTPROCEDURAL STATES Assessment/Plan Microbiology 09/03/17 21:33 Urine - Urine Clean Catch Urine Culture - Final NO GROWTH OBTAINED 09/03/17 17:55 Blood - Peripheral Venous Blood Culture - Final NO GROWTH AFTER 5 DAYS INCUBATION 09/03/17 17:55 Blood - Peripheral Venous Blood Culture - Final NO GROWTH AFTER 5 DAYS INCUBATION Laboratory Tests 09/09/17 09/09/17 09/09/17 21:00 21:00 21:00 WBC 12.2 H Hgb 9.1 L D Hct Plt Count 166 BUN 35 H D Creatinine 1.3 Creat Clearance w eGFR 52.85 Troponin I 0.07 H 09/10/17 09/10/17 06:00 06:00 WBC Pending Hgb Pending Hct Pending Plt Count Pending BUN Pending Creatinine Creat Clearance w eGFR Troponin I Assessment Severe valvular heart disease Day 6 post op lap with lysis of adhesions small bowel obstruction GI bleeding Atrial fibrillation Plan Cardiology will follow today Observe off antibiotics If stable from ID standpoint by tomorrow see no reason to continue to follow Jono CHRISTIAN
[2017-09-10 07:00] LABS: ALBUMIN 2.1 g/dl (3.4-5.0); ALK PHOS 39 U/L (45-117); ANION GAP 9 (8-16); BILIRUBIN,TOTAL 0.9 mg/dL (0.2-1.0); BLOOD UREA NITROGEN 34 mg/dL (7-18); CALCIUM 7.4 mg/dL (8.5-10.1); CO2 27 mmol/L (21-32); CREATININE 1.2 mg/dL (0.7-1.3); GLUCOSE,RANDOM 127 mg/dL (74-106); SGOT/AST 37 U/L (15-37); SGPT/ALT 38 U/L (12-78); TOT PROT 4.3 g/dl (6.4-8.2)
--- NOTE | 2017-09-10 08:56 | PN ---
Progress Note (short form) - Note Progress Note: PULM/CCM Pt seen and examined in the ICU. Awake and interactive. Off all pressors, abd distension and post-op ileus resolving, tolerating PO's, Hgb stable. Active Medications Chlorhexidine Gluconate (Hibiclens For Decolonization -) 1 applic TP HS [facility] Last Admin: 09/09/17 22:31 Dose: 1 applic Hydromorphone HCl (Dilaudid Injection -) 1 mg IVPB Q4H PRN PRN Reason: PAIN Last Admin: 09/04/17 13:40 Dose: 1 mg Phenylephrine HCl 20,000 mcg/ (Sodium Chloride) 250 mls @ 37.5 mls/hr IVPB ASDIR MELISSA; 50 MCG/MIN PRN Reason: Protocol Last Titration: 09/09/17 22:00 Dose: 0 mcg/min, 0 mls/hr Insulin Aspart (Novolog Vial Sliding Scale -) 1 vial SQ Q6HPO MELISSA PRN Reason: Protocol Last Admin: 09/10/17 17:39 Dose: 2 units Metoprolol Tartrate (Lopressor -) 50 mg PO BID [facility] Last Admin: 09/10/17 09:28 Dose: Not Given Morphine Sulfate (Morphine Sulfate) 1 mg IVPUSH Q3H PRN PRN Reason: PAIN LEVEL 1 - 3 Last Admin: 09/09/17 20:49 Dose: 1 mg Pantoprazole Sodium (Protonix Iv) 40 mg IVPUSH DAILY [facility] Last Admin: 09/10/17 09:28 Dose: 40 mg Rivaroxaban (Xarelto -) 15 mg PO DAILY@1800 [facility] Last Admin: 09/10/17 17:33 Dose: 15 mg Vital Signs Temp 98.1 F 09/10/17 18:00 Pulse 96 H 09/10/17 18:00 Resp 20 09/10/17 18:00 BP 104/60 09/10/17 18:00 Pulse Ox 99 09/10/17 08:00 Intake & Output 09/09/17 09/10/17 09/10/17 23:59 11:59 23:59 Intake Total 1662.5 100 250 Output Total 500 50 Balance 1162.5 50 250 Weight 94.4 kg Intake: IV 1662.5 0 D51/2 NS 1400 Faisal-Synephrine - 20,000 262.5 0 Mcg In Normal Saline - 248 ml @ 50 MCG/MIN 37.5 mls/hr IVPB ASDIR MELISSA Rx# :[id number] IVPB 100 100 Oral 150 Output: Urine 500 50 Void 500 50 Other: Voiding Method Urinal Urinal # Unmeasured Voids Void 1 1 Weight Measurement Method Built in Bedscale Gen: awakens to loud voice Heart: tachycardic, regular Lung: diminished bases Abd: softly distended, hypoactive BS, non tender Ext: no edema Neuro: non focal exam CBC, BMP 09/10/17 06:00 09/10/17 06:00 Microbiology 09/03/17 17:55 Blood - Peripheral Venous Blood Culture - Final NO GROWTH AFTER 5 DAYS INCUBATION 09/03/17 17:55 Blood - Peripheral Venous Blood Culture - Final NO GROWTH AFTER 5 DAYS INCUBATION 09/03/17 21:33 Urine - Urine Clean Catch Urine Culture - Final NO GROWTH OBTAINED RECENT STUDIS TO NOTE: CTAP 09/08: In comparison to a prior CT exam of 09/03/2009 interval increased free intraperitoneal fluid is noted which is currently small to moderate, is a small in volume. The degree of bowel dilatation appears increased currently with a maximal luminal diameter approximately 5.4 cm, previously 4.5 cm. As on the prior study the distal ileum and colon demonstrate a collapsed appearance suggestive of a transition zone in the region of the jejunal - ileal junction. Air and fluid filled gastric distention is again noted. Status post interval midline abdominal surgical incision. The partially visualized appendix demonstrates no obvious abnormality. Colonic diverticulosis is noted without evidence of acute diverticulitis. Interval development of small bilateral pleural effusions is seen as well as interval development of bibasilar opacities probably representing atelectasis. Superimposed infiltrate would be difficult to exclude any imaging basis only. Correlate clinically. There is partial imaging of cardiomegaly. Interval development of bilateral flank subcutaneous edema. As on the prior study note is made of a small size of the right hepatic lobe suggestive of cirrhosis. No gross hepatic mass lesion is seen. Several punctate hepatic calcifications are visualized which may representing granulomas. The spleen, pancreas, left adrenal gland and kidneys demonstrate no obvious noncontrast pathology. Small stable right adrenal adenoma. There is no aortic aneurysm. No obvious lymphadenopathy is identified. Moderate prostate enlargement. Small bilateral inguinal hernias containing fat only. Impression: Status post interval midline laparotomy. Prominent jejunal bowel dilatation is seen which appears increased since a previous study of 09/03. As on the prior study the ileum and colon demonstrated a collapsed appearance. Gastric distention as on the prior study. A small to moderate amount of free fluid is seen within abdomen and pelvis which appears mildly increased. There is partial imaging of cardiomegaly. Development of bilateral flank subcutaneous edema is noted. Interval development of small bilateral pleural effusions is seen with associated bibasilar opacities. CXR 09/07: Since the prior study of 09/06/2017 at 0723 hours, the bilateral pulmonary and pleural changes with prominent mediastinum, degenerative findings , old right rib trauma and left cardiac device persist. Impression: No significant change. ABD XR 09/07: Comparison study September 06, 2017. Increased dilatation of loops of small bowel in the abdomen (4.5 cm to 5.9 cm). No air is seen in the colon. Surgical vishnu. Impression. Bilateral obstruction with increased distention of loops of small bowel. ASSESSMENT AND PLAN: Small Bowel Obstruction/Pneumotosis s/p ex-lap/PARDEEP Sepsis Acute on Chronic Renal Failure Lactic Acidosis resolving Atrial fibrillation LV Diastolic Dysfunction Mitral Regurgitation CAD HTN DM Hypercholesterolemia - off abx - IVF - replete lytes - monitor urine output, creatinine - rate control - AC - monitor H/H - pain control - Incentive spirometry - OOB to chair - rehab/PT - PO per surgery - ok for floor DGL, ACNP-[facility] ICU PULM/CCM [phone] [id number]"CCT
[2017-09-10] MEDS: METOPROLOL TARTRATE 50 MG TABLET (FP) PO SCH ×2 (09:28→21:19)
[2017-09-10] MEDS: PANTOPRAZOLE SODIUM 40 MG VIAL IVPUSH SCH (09:28)
--- NOTE | 2017-09-10 12:30 | PN ---
Progress Note, Physician History of Present Illness: 81 year old male with significant medical hx of CAD, MS, CHF, AFib (on Xarelto) HTN, HLD, DM, and CKD who is presenting to the ED with vomiting on Monday. admitted with SBO on 09/03/2017 s/p exploratory Laprotomy - Current Medication List Current Medications: Active Medications Chlorhexidine Gluconate (Hibiclens For Decolonization -) 1 applic TP HS [facility] Last Admin: 09/09/17 22:31 Dose: 1 applic Hydromorphone HCl (Dilaudid Injection -) 1 mg IVPB Q4H PRN PRN Reason: PAIN Last Admin: 09/04/17 13:40 Dose: 1 mg Phenylephrine HCl 20,000 mcg/ (Sodium Chloride) 250 mls @ 37.5 mls/hr IVPB ASDIR MELISSA; 50 MCG/MIN PRN Reason: Protocol Last Titration: 09/09/17 22:00 Dose: 0 mcg/min, 0 mls/hr Insulin Aspart (Novolog Vial Sliding Scale -) 1 vial SQ Q6HPO MELISSA PRN Reason: Protocol Last Admin: 09/10/17 06:02 Dose: Not Given Metoprolol Tartrate (Lopressor -) 50 mg PO BID [facility] Last Admin: 09/10/17 09:28 Dose: Not Given Morphine Sulfate (Morphine Sulfate) 1 mg IVPUSH Q3H PRN PRN Reason: PAIN LEVEL 1 - 3 Last Admin: 09/09/17 20:49 Dose: 1 mg Pantoprazole Sodium (Protonix Iv) 40 mg IVPUSH DAILY [facility] Last Admin: 09/10/17 09:28 Dose: 40 mg - Objective Vital Signs: Vital Signs Temperature 98.3 F 09/10/17 12:00 Pulse Rate 85 09/10/17 12:00 Respiratory Rate 17 09/10/17 12:00 Blood Pressure 87/55 09/10/17 12:00 O2 Sat by Pulse Oximetry (%) 99 09/10/17 08:00 Elderly man sick looking, not in distress, tolerating PO HEENT: Mm dry, mild anemia, PERRLA NECK: No JVD No Bruit CHEST: Basal Crepts CVS: S1S2 Irr SM in AA ABD: s/p Laprotomy mild tenderness Bs + EXT: Raz afeet, + GUITAR REPAIR TECHNICIAN: Aox3 non focal Labs: CBC, BMP 09/10/17 06:00 09/10/17 06:00 INR, PTT INR 1.43 (0.82-1.09) H D 09/08/17 07:40 Problem List - Problems (1) Pneumatosis intestinalis of small intestine Assessment/Plan: DUe to SBO s/p Exploratory laprotomy on IV abx Code(s): K63.89 - OTHER SPECIFIED DISEASES OF INTESTINE (2) Small bowel obstruction Assessment/Plan: S/P Expl;oratory laprotomy and adhesion lysis , post Op care as per surgery consult Code(s): K56.609 - UNSP INTESTNL OBST, UNSP TO PARTIAL VERSUS COMPLETE OBST (3) CKD (chronic kidney disease) stage 3, GFR 30-59 ml/min Assessment/Plan: Renal functions are improving Code(s): N18.3 - CHRONIC KIDNEY DISEASE, STAGE 3 (MODERATE) (4) [id number] kidney injury Assessment/Plan: Improving on hydration Code(s): N17.9 - ACUTE KIDNEY FAILURE, UNSPECIFIED; N18.9 - CHRONIC KIDNEY DISEASE, UNSPECIFIED Qualifiers: Chronic kidney disease stage: unspecified stage (5) Tricuspid valve regurgitation Assessment/Plan: Schedule for repair as out patient Code(s): I07.1 - RHEUMATIC TRICUSPID INSUFFICIENCY Qualifiers: Cardiac valve disease etiology: nonrheumatic Qualified Code(s): I36.1 - Nonrheumatic tricuspid (valve) insufficiency (6) Moderate to severe mitral regurgitation Assessment/Plan: Schedule for surgery as out patient Code(s): I34.0 - NONRHEUMATIC MITRAL (VALVE) INSUFFICIENCY (7) T2DM (type 2 diabetes mellitus) Assessment/Plan: On Correction dose insulin opttimize Glycemic control Code(s): E11.9 - TYPE 2 DIABETES MELLITUS WITHOUT COMPLICATIONS Qualifiers: Diabetes mellitus complication detail: with diabetic retinopathy (8) Persistent atrial fibrillation Assessment/Plan: On rate control off Ac, cont current management as per Cardiology consult. Code(s): I48.1 - PERSISTENT ATRIAL FIBRILLATION
--- NOTE | 2017-09-10 14:40 | PN ---
Progress Note, Physician History of Present Illness: Abd distension and post-op ileus resolving, tolerating oral intake, rate- controlled afib. Still with melanotic stools Hgb stable post-transfusion. Weaned off Faisal gtt. - Current Medication List Current Medications: Active Medications Chlorhexidine Gluconate (Hibiclens For Decolonization -) 1 applic TP HS [facility] Last Admin: 09/09/17 22:31 Dose: 1 applic Hydromorphone HCl (Dilaudid Injection -) 1 mg IVPB Q4H PRN PRN Reason: PAIN Last Admin: 09/04/17 13:40 Dose: 1 mg Phenylephrine HCl 20,000 mcg/ (Sodium Chloride) 250 mls @ 37.5 mls/hr IVPB ASDIR MELISSA; 50 MCG/MIN PRN Reason: Protocol Last Titration: 09/09/17 22:00 Dose: 0 mcg/min, 0 mls/hr Insulin Aspart (Novolog Vial Sliding Scale -) 1 vial SQ Q6HPO MELISSA PRN Reason: Protocol Last Admin: 09/10/17 12:00 Dose: Not Given Metoprolol Tartrate (Lopressor -) 50 mg PO BID [facility] Last Admin: 09/10/17 09:28 Dose: Not Given Morphine Sulfate (Morphine Sulfate) 1 mg IVPUSH Q3H PRN PRN Reason: PAIN LEVEL 1 - 3 Last Admin: 09/09/17 20:49 Dose: 1 mg Pantoprazole Sodium (Protonix Iv) 40 mg IVPUSH DAILY [facility] Last Admin: 09/10/17 09:28 Dose: 40 mg - Objective Vital Signs: Vital Signs Temperature 98.0 F 09/10/17 14:00 Pulse Rate 99 H 09/10/17 14:00 Respiratory Rate 18 09/10/17 14:00 Blood Pressure 102/64 09/10/17 14:00 O2 Sat by Pulse Oximetry (%) 99 09/10/17 08:00 Constitutional: Yes: No Distress, Calm, Thin Neck: Yes: Supple Cardiovascular: Yes: Pulse Irregular Respiratory: Yes: Regular, Diminished Gastrointestinal: Yes: Normal Bowel Sounds, Soft Edema: No Labs: CBC, BMP 09/10/17 06:00 09/10/17 06:00 INR, PTT INR 1.43 (0.82-1.09) H D 09/08/17 07:40 - ....Imaging EKG: Report Reviewed (Tele: Afib) Problem List - Problems (1) [id number] kidney injury Code(s): N17.9 - ACUTE KIDNEY FAILURE, UNSPECIFIED; N18.9 - CHRONIC KIDNEY DISEASE, UNSPECIFIED Qualifiers: Chronic kidney disease stage: unspecified stage (2) Lactic acidosis Code(s): E87.2 - ACIDOSIS (3) Status post exploratory laparotomy Code(s): Z98.890 - OTHER SPECIFIED POSTPROCEDURAL STATES (4) Pneumatosis intestinalis of small intestine Code(s): K63.89 - OTHER SPECIFIED DISEASES OF INTESTINE (5) Small bowel obstruction Code(s): K56.609 - UNSP INTESTNL OBST, UNSP TO PARTIAL VERSUS COMPLETE OBST (6) Hypertensive cardiomyopathy Code(s): I11.9 - HYPERTENSIVE HEART DISEASE WITHOUT HEART FAILURE; I43 - CARDIOMYOPATHY IN DISEASES CLASSIFIED ELSEWHERE Qualifiers: Heart failure presence: without heart failure Qualified Code(s): I11.9 - Hypertensive heart disease without heart failure; I43 - Cardiomyopathy in diseases classified elsewhere; I43 - Cardiomyopathy in diseases classified elsewhere; I43 - Cardiomyopathy in diseases classified elsewhere; I43 - Cardiomyopathy in diseases classified elsewhere (7) Moderate aortic regurgitation Code(s): I35.1 - NONRHEUMATIC AORTIC (VALVE) INSUFFICIENCY (8) Moderate to severe mitral regurgitation Code(s): I34.0 - NONRHEUMATIC MITRAL (VALVE) INSUFFICIENCY (9) Persistent atrial fibrillation Code(s): I48.1 - PERSISTENT ATRIAL FIBRILLATION (10) T2DM (type 2 diabetes mellitus) Code(s): E11.9 - TYPE 2 DIABETES MELLITUS WITHOUT COMPLICATIONS Qualifiers: Diabetes mellitus complication detail: with diabetic retinopathy Assessment/Plan 1. Small intestinal obstruction, secondary to a band of adhesions s/p exploratory laparotomy, lysis of adhesions, release of intestinal obstruction. Post-op ileus vs recurrence. 2. Chronic diastolic failure with underlying moderate - severe MR, moderate AR, TR 3. CAD, angina pectoris 4. Persistent atrial fibrillation [id number] on NOAC 5. HTN/HCVD 6. Type 2 DM 7. Hyperlipidemia 8. Acute on CKD due to hemodynamic alterations improving 9. Lactic acidosis and leukocytosis PLAN: 1. Monitor renal function and electrolytes. Advance diet as tolerated 2. Resume Diovan 80 mg qd and Lopressor 50 mg bid as hemodynamics tolerate now that oral intake resumed 3. Resume Xarelto 15 qd as hemostasis achieved, f/u Hgb, completed empiric abx course 4. Mitral and tricuspid valve repair/replacement postponed until recovery from this admission
[2017-09-10] MEDS: RIVAROXABAN 15 MG TABLET PO SCH (17:33)
--- NOTE | 2017-09-10 18:41 | EKG ---
Test Reason : Blood Pressure : / mmHG Vent. Rate : 112 BPM Atrial Rate : 098 BPM P-R Int : 000 ms QRS Dur : 072 ms QT Int : 346 ms P-R-T Axes : 000 -07 -72 degrees QTc Int : 472 ms POOR DATA QUALITY IN CURRENT ECG PRECLUDES SERIAL COMPARISON ATRIAL FIBRILLATION WITH RAPID VENTRICULAR RESPONSE CANNOT RULE OUT INFERIOR INFARCT , AGE UNDETERMINED POSSIBLE ACUTE INFERIOR ST ELEVATION [place] ABNORMAL ECG Confirmed by MD TAMMI, ANGELES ([id number]) on 09/10/2017 6:40:42 PM Referred By: ALISE Confirmed By:ANGELES CADENA MD
[2017-09-10] MEDS: CHLORHEXIDINE GLUCONATE 4% CLEANSER FOR DECOLONIZATION TP SCH (21:19)
[2017-09-11] MEDS: INSULIN SLIDING SCALE (NOVOLOG) 1 VIAL SQ SCH ×4 (00:05→17:03)
--- NOTE | 2017-09-11 06:27 | PN ---
Progress Note, Physician History of Present Illness: 24 HOUR EVENTS On Monday, patient had hemodynamically stable V-tach on monitor lasting about 2 hours per RN. This AM another short-lived tachyarrhythmia, ventricular rate 110 , lasting <1 minute, patient sleeping during episode. Xarelto re-started. No BM reported since Monday. ID signing off. SUBJECTIVE Patient states he has much less pain, low appetite but this is improving, overall feels better than last week. 24 HOUR INTAKE & OUTPUT In: 350cc Out: 50cc + unmeasured in diaper Net: N/A BM: None reported - Current Medication List Current Medications: Active Medications Chlorhexidine Gluconate (Hibiclens For Decolonization -) 1 applic TP HS [facility] Last Admin: 09/10/17 21:19 Dose: 1 applic Phenylephrine HCl 20,000 mcg/ (Sodium Chloride) 250 mls @ 37.5 mls/hr IVPB ASDIR MELISSA; 50 MCG/MIN PRN Reason: Protocol Last Titration: 09/09/17 22:00 Dose: 0 mcg/min, 0 mls/hr Insulin Aspart (Novolog Vial Sliding Scale -) 1 vial SQ Q6HPO MELISSA PRN Reason: Protocol Last Admin: 09/11/17 00:05 Dose: Not Given Metoprolol Tartrate (Lopressor -) 50 mg PO BID [facility] Last Admin: 09/10/17 21:19 Dose: Not Given Morphine Sulfate (Morphine Sulfate) 1 mg IVPUSH Q3H PRN PRN Reason: PAIN LEVEL 1 - 3 Last Admin: 09/09/17 20:49 Dose: 1 mg Pantoprazole Sodium (Protonix Iv) 40 mg IVPUSH DAILY [facility] Last Admin: 09/10/17 09:28 Dose: 40 mg Rivaroxaban (Xarelto -) 15 mg PO DAILY@1800 [facility] Last Admin: 09/10/17 17:33 Dose: 15 mg - Objective Vital Signs: Vital Signs Temperature 98.3 F 09/11/17 06:00 Pulse Rate 96 H 09/11/17 06:00 Respiratory Rate 16 09/11/17 06:00 Blood Pressure 101/62 09/11/17 06:00 O2 Sat by Pulse Oximetry (%) 100 09/10/17 20:00 Constitutional: Yes: Well Nourished, No Distress, Calm, Other (initially sleeping but does awaken to loud voice, more conversive than Monday, overall appears improved) Eyes: Yes: WNL, Conjunctiva Clear, EOM Intact HENT: Yes: WNL, Atraumatic, Normocephalic Neck: Yes: WNL, Supple, Trachea Midline Cardiovascular: Yes: Tachycardia, Pulse Irregular. No: Murmur Respiratory: Yes: WNL, Regular, CTA Bilaterally, Cough (occasional) Gastrointestinal: Yes: WNL, Normal Bowel Sounds, Soft, Distention (slightly improved) Extremities: Yes: WNL. No: Cold, Cool, Cyanosis, Deformity, Delayed Capillary Refill, Erythema Edema: No Peripheral Pulses: Left Doralis Pedis: 2+, Right Dorsalis Pedis: 2+ Wound/Incision: Yes: Clean/Dry, Well Approximated, Micky Intact, Open to air Neurological: Yes: WNL, Alert, Oriented ...Motor Strength: WNL Psychiatric: Yes: WNL, Alert, Oriented Labs: CBC, BMP 09/10/17 06:00 09/10/17 06:00 INR, PTT INR 1.43 (0.82-1.09) H D 09/08/17 07:40 - ....Imaging Chest X-ray: Report Reviewed, Image Reviewed, Other (no interval change) EKG: Other (A-fib, rate of 83, no acute changes) Assessment/Plan 82 YOM with h/o CAD (scheduled for cardiac cath and valve repair), CHF, mitral stenosis, AFib (on Xarelto), HTN, HLD, DM, CKD, subdural hematoma (about 6 mo ago), presented to ED 09/03 for intermittent vomiting since about 08/31, seen by PMD Dr. Bishop who Rx'ed Zofran and when sxs continued despite taking this, Pt was advised to come to ED. Found e/o SBO and pneumatosis intestinalist on CT, now s/p uncomplicated ex-lap with lysis of adhesions and release of bowel. Given 2 units FFP, vancomycin, zosyn, 7 liters IVF during surgery. GI: #SBO with pneumatosis intestinalis. Adhesions lysed and SBO reduced in OR. Received vancomycin/Zosyn. Abdominal XR from 09/07 PM showed bilateral obstruction with worsened dilation of small bowel. Pending final read of CT abdomen/pelvis with PO contrast from 09/08. -Monitor BM for melena -Surgery Dr. Calhoun following -Pain management w/ morphine #Melena, persistent. Also worsening anemia requiring transfusion. -Transfuse as needed -Monitor INR, H/H ID: #Sepsis, improved. In ED HR was up to 133, BP down to 92/68, 90% pulse ox. Likely 2/2 SBO with pneumatosis intestinalis. No perforation seen on ex-lap. -Continue Zosyn, Flagyl -Trend CBCD -F/U cultures #Pneumatosis intestinalis, improved. Likely 2/2 SBO which was reduced in OR. Patient's abdomen is distended slightly more than prior days. -Serial abdominal exams CV: #Tachyarrhythmia. On Monday reported 2 hours hemodynamically stable V-tach. Dr. Ryan aware. This morning another episode hemodynamically stable V-tach, rate of 110. -Keep on monitor -Pads in the room -Cardiac enzymes, EKG, CXR this AM -Dr. Ryan is following, believes episodes of tachyarrhythmia will improve with home metoprolol -Metoprolol ordered with conditions to hold if systolic BP<90 or MAP<60 #Hypotension, slightly improved this AM. Echo without acute worsening. Off pressors. -Diovan 80 mg qd and Lopressor 50 mg bid as hemodynamics tolerate -Hydrate with IVF with caution #A-fib on AC, chronic. 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 Likely 2/2 fluid overload and CHF exacerbation -Careful prn if clinically volume overloaded or congestion on CXR -Continue ventimask -Encourage incentive spirometry; family also on board to encourage RENAL #RILEY on CKD, exacerbated from baseline, improving. -Continue IVF and Lasix -Trend BUN/Cr/UOP FEN -Monitor CMP, Mg, Phos -Replace electrolytes prn PPX DVT: Xarelto GI: Protonix PT: Order placed Lines/Drains/Tubes PIV placed 09/03/17 Disposition: Further ICU care
--- NOTE | 2017-09-11 07:05 | PN ---
Progress Note, Physician Chief Complaint: ID Remains afebrile off antibiotics for few days Weak Lethargic - Current Medication List Current Medications: Active Medications Chlorhexidine Gluconate (Hibiclens For Decolonization -) 1 applic TP HS [facility] Last Admin: 09/10/17 21:19 Dose: 1 applic Phenylephrine HCl 20,000 mcg/ (Sodium Chloride) 250 mls @ 37.5 mls/hr IVPB ASDIR MELISSA; 50 MCG/MIN PRN Reason: Protocol Last Titration: 09/09/17 22:00 Dose: 0 mcg/min, 0 mls/hr Insulin Aspart (Novolog Vial Sliding Scale -) 1 vial SQ Q6HPO [facility] PRN Reason: Protocol Last Admin: 09/11/17 06:27 Dose: 2 units Metoprolol Tartrate (Lopressor -) 50 mg PO BID [facility] Last Admin: 09/10/17 21:19 Dose: Not Given Morphine Sulfate (Morphine Sulfate) 1 mg IVPUSH Q3H PRN PRN Reason: PAIN LEVEL 1 - 3 Last Admin: 09/09/17 20:49 Dose: 1 mg Pantoprazole Sodium (Protonix Iv) 40 mg IVPUSH DAILY [facility] Last Admin: 09/10/17 09:28 Dose: 40 mg Rivaroxaban (Xarelto -) 15 mg PO DAILY@1800 [facility] Last Admin: 09/10/17 17:33 Dose: 15 mg - Objective Vital Signs: Vital Signs Temperature 98.3 F 09/11/17 06:00 Pulse Rate 96 H 09/11/17 06:00 Respiratory Rate 16 09/11/17 06:00 Blood Pressure 101/62 09/11/17 06:00 O2 Sat by Pulse Oximetry (%) 100 09/10/17 20:00 Constitutional: Yes: No Distress Cardiovascular: Yes: Pulse Irregular, S1, S2 Respiratory: Yes: WNL, Regular, CTA Bilaterally, Other (Expiratory wheezing) Gastrointestinal: Yes: Soft, Other (Incision). No: Tenderness Extremities: No: Cold, Cool, Cyanosis Edema: No Labs: CBC, BMP 09/10/17 06:00 09/10/17 06:00 INR, PTT INR 1.43 (0.82-1.09) H D 09/08/17 07:40 Problem List - Problems (1) Melena Code(s): K92.1 - MELENA (2) Lactic acidosis Code(s): E87.2 - ACIDOSIS (3) Small bowel obstruction Code(s): K56.609 - UNSP INTESTNL OBST, UNSP TO PARTIAL VERSUS COMPLETE OBST (4) Status post exploratory laparotomy Code(s): Z98.890 - OTHER SPECIFIED POSTPROCEDURAL STATES Assessment/Plan Microbiology 09/03/17 21:33 Urine - Urine Clean Catch Urine Culture - Final NO GROWTH OBTAINED 09/03/17 17:55 Blood - Peripheral Venous Blood Culture - Final NO GROWTH AFTER 5 DAYS INCUBATION Laboratory Tests 09/10/17 09/10/17 06:00 06:00 WBC 7.9 D RBC 3.58 L Hct 27.9 L Plt Count 138 Creat Clearance w eGFR 57.96 Assessment S/P surgery SBO Atrial fibrillation GI Bleeding Atrial fibrillation Plan Will sign off Kindly recall as needed Jono CHRISTIAN
[2017-09-11 08:25] LABS: HEMATOCRIT 26.3 % (35.4-49); HEMOGLOBIN 8.4 GM/dL (11.7-16.9); MCH 25.1 pg (25.7-33.7); MCHC 32.1 g/dl (32.0-35.9); MEAN CELL VOLUME 78.1 fl (80-96); MEAN PLT VOLUME 7.7 fl (7.5-11.1); PLATELET COUNT 155 K/MM3 (134-434); RBC 3.37 M/mm3 (4.00-5.60); RDW 17.6 % (11.9-15.9)
[2017-09-11 08:47] LABS: INR 2.24 (0.82-1.09); PROTHROMBIN TIME (PATIENT) 25.3 SEC (9.98-11.88)
[2017-09-11 08:49] LABS: ALBUMIN 2.1 g/dl (3.4-5.0); ALK PHOS 44 U/L (45-117); ANION GAP 6 (8-16); BILIRUBIN,TOTAL 0.7 mg/dL (0.2-1.0); BLOOD UREA NITROGEN 29 mg/dL (7-18); CHLORIDE 106 mmol/L (98-107); CO2 29 mmol/L (21-32); CREATININE 1.2 mg/dL (0.7-1.3); GLUCOSE,RANDOM 107 mg/dL (74-106); MAGNESIUM 2.2 mg/dL (1.8-2.4); PHOSPHOROUS 1.8 mg/dL (2.5-4.9); SGOT/AST 40 U/L (15-37); SGPT/ALT 45 U/L (12-78); SODIUM 141 mmol/L (136-145); TOT PROT 4.2 g/dl (6.4-8.2)
--- NOTE | 2017-09-11 08:49 | PN ---
Progress Note, Physician Chief Complaint: Very sleepy History of Present Illness: S/P Exploratory lap and lysis of adhesions Intestinal obstruction resolved Cardiac arrhythmia noted on the monitor Will discuss with cardiology - Current Medication List Current Medications: Active Medications Chlorhexidine Gluconate (Hibiclens For Decolonization -) 1 applic TP HS [facility] Last Admin: 09/10/17 21:19 Dose: 1 applic Phenylephrine HCl 20,000 mcg/ (Sodium Chloride) 250 mls @ 37.5 mls/hr IVPB ASDIR MELISSA; 50 MCG/MIN PRN Reason: Protocol Last Titration: 09/09/17 22:00 Dose: 0 mcg/min, 0 mls/hr Insulin Aspart (Novolog Vial Sliding Scale -) 1 vial SQ Q6HPO MELISSA PRN Reason: Protocol Last Admin: 09/11/17 06:27 Dose: 2 units Metoprolol Tartrate (Lopressor -) 50 mg PO BID [facility] Last Admin: 09/10/17 21:19 Dose: Not Given Morphine Sulfate (Morphine Sulfate) 1 mg IVPUSH Q3H PRN PRN Reason: PAIN LEVEL 1 - 3 Last Admin: 09/09/17 20:49 Dose: 1 mg Pantoprazole Sodium (Protonix Iv) 40 mg IVPUSH DAILY [facility] Last Admin: 09/10/17 09:28 Dose: 40 mg Rivaroxaban (Xarelto -) 15 mg PO DAILY@1800 [facility] Last Admin: 09/10/17 17:33 Dose: 15 mg - Objective Vital Signs: Vital Signs Temperature 98.1 F 09/11/17 08:00 Pulse Rate 82 09/11/17 08:00 Respiratory Rate 15 09/11/17 08:00 Blood Pressure 88/62 09/11/17 08:00 O2 Sat by Pulse Oximetry (%) 100 09/10/17 20:00 Constitutional: Yes: Calm Eyes: Yes: WNL HENT: Yes: WNL Neck: Yes: WNL Cardiovascular: Yes: Pulse Irregular Respiratory: Yes: Regular Gastrointestinal: Yes: Normal Bowel Sounds ...Rectal Exam: Yes: Deferred Genitourinary: Yes: WNL Musculoskeletal: Yes: Muscle Weakness Peripheral Pulses WNL: Yes Neurological: Yes: Lethargy Labs: CBC, BMP 09/11/17 07:50 INR, PTT INR 1.43 (0.82-1.09) H D 09/08/17 07:40 Assessment/Plan Will discuss with Dr Naranjo
[2017-09-11 08:50] LABS: ACTIVATED PTT 34.1 SECONDS (26.9-34.4)
[2017-09-11] MEDS ORDERED: NAPH,MB-DB/K PH,MBDB POWDER PACKET PO ONE (09:09)
[2017-09-11 09:13] LABS: CALCIUM 6.8 mg/dL (8.5-10.1)
[2017-09-11] MEDS: METOPROLOL TARTRATE 50 MG TABLET (FP) PO SCH (09:45)
[2017-09-11] MEDS: PANTOPRAZOLE SODIUM 40 MG VIAL IVPUSH SCH (09:45)
--- NOTE | 2017-09-11 10:08 | PN ---
Progress Note, Physician - Current Medication List Current Medications: Active Medications Chlorhexidine Gluconate (Hibiclens For Decolonization -) 1 applic TP HS [facility] Last Admin: 09/10/17 21:19 Dose: 1 applic Phenylephrine HCl 20,000 mcg/ (Sodium Chloride) 250 mls @ 37.5 mls/hr IVPB ASDIR MELISSA; 50 MCG/MIN PRN Reason: Protocol Last Titration: 09/09/17 22:00 Dose: 0 mcg/min, 0 mls/hr Insulin Aspart (Novolog Vial Sliding Scale -) 1 vial SQ Q6HPO MELISSA PRN Reason: Protocol Last Admin: 09/11/17 06:27 Dose: 2 units Metoprolol Tartrate (Lopressor -) 50 mg PO BID [facility] Last Admin: 09/11/17 09:45 Dose: Not Given Morphine Sulfate (Morphine Sulfate) 1 mg IVPUSH Q3H PRN PRN Reason: PAIN LEVEL 1 - 3 Last Admin: 09/09/17 20:49 Dose: 1 mg Pantoprazole Sodium (Protonix Iv) 40 mg IVPUSH DAILY [facility] Last Admin: 09/11/17 09:45 Dose: 40 mg Rivaroxaban (Xarelto -) 15 mg PO DAILY@1800 [facility] Last Admin: 09/10/17 17:33 Dose: 15 mg - Objective Vital Signs: Vital Signs Temperature 98.1 F 09/11/17 08:00 Pulse Rate 82 09/11/17 08:00 Respiratory Rate 15 09/11/17 08:00 Blood Pressure 88/62 09/11/17 08:00 O2 Sat by Pulse Oximetry (%) 100 09/11/17 08:00 Labs: CBC, BMP 09/11/17 07:50 09/11/17 07:50 INR, PTT INR 2.24 (0.82-1.09) H D 09/11/17 07:50 Problem List - Problems (1) Abdominal pain Code(s): R10.9 - UNSPECIFIED ABDOMINAL PAIN Qualifiers: Abdominal location: left upper quadrant Qualified Code(s): R10.12 - Left upper quadrant pain (2) Small bowel obstruction Code(s): K56.609 - UNSP INTESTNL OBST, UNSP TO PARTIAL VERSUS COMPLETE OBST (3) Heart failure, diastolic, with acute decompensation Code(s): I50.33 - ACUTE ON CHRONIC DIASTOLIC (CONGESTIVE) HEART FAILURE (4) Moderate to severe mitral regurgitation Code(s): I34.0 - NONRHEUMATIC MITRAL (VALVE) INSUFFICIENCY (5) Pneumatosis intestinalis of small intestine Code(s): K63.89 - OTHER SPECIFIED DISEASES OF INTESTINE Assessment/Plan Surgery: Patient is alert and oriented. He has no complaints. Abdominal incision site is clean. No sign of abdominal wall infection. He has been tolerating diet and has had bowel movements. WBC is normal, hematocrit is stable. Manage cardiac issues.
--- NOTE | 2017-09-11 11:30 | PN ---
Progress Note, Physician History of Present Illness: Tolerating oral intake, rate-controlled afib. Melanotic stools decreasing, Hgb stable post-transfusion. Remains off Faisal gtt. - Current Medication List Current Medications: Active Medications Chlorhexidine Gluconate (Hibiclens For Decolonization -) 1 applic TP HS [facility] Last Admin: 09/10/17 21:19 Dose: 1 applic Phenylephrine HCl 20,000 mcg/ (Sodium Chloride) 250 mls @ 37.5 mls/hr IVPB ASDIR MELISSA; 50 MCG/MIN PRN Reason: Protocol Last Titration: 09/09/17 22:00 Dose: 0 mcg/min, 0 mls/hr Insulin Aspart (Novolog Vial Sliding Scale -) 1 vial SQ Q6HPO MELISSA PRN Reason: Protocol Last Admin: 09/11/17 11:15 Dose: 2 units Metoprolol Tartrate (Lopressor -) 50 mg PO BID [facility] Last Admin: 09/11/17 09:45 Dose: Not Given Morphine Sulfate (Morphine Sulfate) 1 mg IVPUSH Q3H PRN PRN Reason: PAIN LEVEL 1 - 3 Last Admin: 09/09/17 20:49 Dose: 1 mg Pantoprazole Sodium (Protonix Iv) 40 mg IVPUSH DAILY [facility] Last Admin: 09/11/17 09:45 Dose: 40 mg Rivaroxaban (Xarelto -) 15 mg PO DAILY@1800 [facility] Last Admin: 09/10/17 17:33 Dose: 15 mg - Objective Vital Signs: Vital Signs Temperature 98.0 F 09/11/17 10:00 Pulse Rate 86 09/11/17 10:00 Respiratory Rate 14 09/11/17 10:00 Blood Pressure 93/50 09/11/17 10:00 O2 Sat by Pulse Oximetry (%) 100 09/11/17 08:00 Constitutional: Yes: No Distress, Calm, Thin Neck: Yes: Supple Cardiovascular: Yes: Pulse Irregular, Murmur (2/6 SM) Respiratory: Yes: Regular, Diminished, On Nasal O2 Gastrointestinal: Yes: Normal Bowel Sounds, Soft Edema: No Labs: CBC, BMP 09/11/17 07:50 09/11/17 07:50 INR, PTT INR 2.24 (0.82-1.09) H D 09/11/17 07:50 - ....Imaging Chest X-ray: Report Reviewed (No sig changes) EKG: Report Reviewed (Tele: Wide complex tachycardia) Problem List - Problems (1) [id number] kidney injury Code(s): N17.9 - ACUTE KIDNEY FAILURE, UNSPECIFIED; N18.9 - CHRONIC KIDNEY DISEASE, UNSPECIFIED Qualifiers: Chronic kidney disease stage: unspecified stage (2) Lactic acidosis Code(s): E87.2 - ACIDOSIS (3) Status post exploratory laparotomy Code(s): Z98.890 - OTHER SPECIFIED POSTPROCEDURAL STATES (4) Pneumatosis intestinalis of small intestine Code(s): K63.89 - OTHER SPECIFIED DISEASES OF INTESTINE (5) Small bowel obstruction Code(s): K56.609 - UNSP INTESTNL OBST, UNSP TO PARTIAL VERSUS COMPLETE OBST (6) Hypertensive cardiomyopathy Code(s): I11.9 - HYPERTENSIVE HEART DISEASE WITHOUT HEART FAILURE; I43 - CARDIOMYOPATHY IN DISEASES CLASSIFIED ELSEWHERE Qualifiers: Heart failure presence: without heart failure Qualified Code(s): I11.9 - Hypertensive heart disease without heart failure; I43 - Cardiomyopathy in diseases classified elsewhere; I43 - Cardiomyopathy in diseases classified elsewhere; I43 - Cardiomyopathy in diseases classified elsewhere; I43 - Cardiomyopathy in diseases classified elsewhere (7) Moderate aortic regurgitation Code(s): I35.1 - NONRHEUMATIC AORTIC (VALVE) INSUFFICIENCY (8) Moderate to severe mitral regurgitation Code(s): I34.0 - NONRHEUMATIC MITRAL (VALVE) INSUFFICIENCY (9) Persistent atrial fibrillation Code(s): I48.1 - PERSISTENT ATRIAL FIBRILLATION (10) T2DM (type 2 diabetes mellitus) Code(s): E11.9 - TYPE 2 DIABETES MELLITUS WITHOUT COMPLICATIONS Qualifiers: Diabetes mellitus complication detail: with diabetic retinopathy Assessment/Plan 1. Small intestinal obstruction, secondary to a band of adhesions s/p exploratory laparotomy, lysis of adhesions, release of intestinal obstruction. Post-op ileus vs recurrence. 2. Chronic diastolic failure with underlying moderate - severe MR, moderate AR, TR 3. CAD, angina pectoris 4. Persistent atrial fibrillation [id number] on NOAC 5. HTN/HCVD 6. Type 2 DM 7. Hyperlipidemia 8. Acute on CKD due to hemodynamic alterations improving 9. Lactic acidosis and leukocytosis PLAN: 1. Monitor renal function and electrolytes. Advance diet as tolerated 2. Resume Diovan 80 mg qd and Lopressor 50 mg bid as hemodynamics tolerate as oral intake resumed 3. Resumed Xarelto 15 qd as hemostasis achieved, f/u Hgb, completed empiric abx course 4. Mitral and tricuspid valve repair/replacement postponed until recovery from this admission 5. OOB to chair
[2017-09-11 11:41] LABS: ANISOCYTOSIS 3+; PLATELET ESTIMATE DECREASED; TARGET CELLS 1+
[2017-09-11] MEDS ORDERED: METOPROLOL TARTRATE 50 MG TABLET (FP) PO SCH (12:28)
--- NOTE | 2017-09-11 13:12 | PN ---
Progress Note (short form) - Note Progress Note: Spoke again with patient's normal automobile racer, Dr. Riojas, office , who was updated on the patient's cardiac status. He was informed of the episodes of hemodynamically stable tachyarrhythmia (noted V-tach with rate in the 90s on Monday, and accelerated idioventricular rhythm this morning with rate around 110). Dr. Riojas also is not concerned about these episodes as the patient was reportedly hemodynamically stable. He does tell me that the patient's last recorded dose of home metoprolol per their office's records is 12.[address] Riojas is happy to talk with us for any further updates or assistance needed but in general will not need daily updates if no new events.
--- NOTE | 2017-09-11 13:16 | PN ---
Teaching Attending Note Name of Resident: Evonne Isabelle ATTENDING PHYSICIAN STATEMENT I saw and evaluated the patient. I reviewed the resident's note and discussed the case with the resident. I agree with the resident's findings and plan as documented. SUBJECTIVE: Pt seen and examined in the ICU. Somolent but arousable. Ectopy overnight. Tolerating PO but poor appetite. OBJECTIVE: Last Vital Signs Temp Pulse Resp BP Pulse Ox 97.9 F 82 22 100/54 100 09/11/17 12:00 09/11/17 12:00 09/11/17 12:00 09/11/17 12:00 09/11/17 08:00 Intake & Output 09/08/17 09/09/17 09/10/17 09/11/17 23:59 23:59 23:59 23:59 Intake Total 2174 3246.5 350 100 Output Total 500 50 Balance 2174 2746.5 300 100 Weight 92.624 kg 93.168 kg 94.4 kg 94 kg Gen: somnolent but arousable Heart: RRR Lung: decreased breath sounds at the bases Abd: soft, nontender Ext: no edema CBC, BMP 09/11/17 07:50 09/11/17 07:50 Active Medications Chlorhexidine Gluconate (Hibiclens For Decolonization -) 1 applic TP HS [facility] Last Admin: 09/10/17 21:19 Dose: 1 applic Phenylephrine HCl 20,000 mcg/ (Sodium Chloride) 250 mls @ 37.5 mls/hr IVPB ASDIR MELISSA; 50 MCG/MIN PRN Reason: Protocol Last Titration: 09/09/17 22:00 Dose: 0 mcg/min, 0 mls/hr Insulin Aspart (Novolog Vial Sliding Scale -) 1 vial SQ Q6HPO MELISSA PRN Reason: Protocol Last Admin: 09/11/17 11:15 Dose: 2 units Metoprolol Tartrate (Lopressor -) 50 mg PO BID [facility] Last Admin: 09/11/17 12:35 Dose: 50 mg Morphine Sulfate (Morphine Sulfate) 1 mg IVPUSH Q3H PRN PRN Reason: PAIN LEVEL 1 - 3 Last Admin: 09/09/17 20:49 Dose: 1 mg Pantoprazole Sodium (Protonix Iv) 40 mg IVPUSH DAILY [facility] Last Admin: 09/11/17 09:45 Dose: 40 mg Rivaroxaban (Xarelto -) 15 mg PO DAILY@1800 MELISSA Last Admin: 09/10/17 17:33 Dose: 15 mg ASSESSMENT AND PLAN: Small Bowel Obstruction s/p Ex-lap/PARDEEP LV diastolic Dysfunction Severe Mitral Regurgitation CAD Atrial Fibrillation HTN DM Acute Kidney Injury improving - PO as tolerated - monitor lytes - rate control - continue anticoagulation - rehab/PT - continue ICU monitoring for now
--- NOTE | 2017-09-11 16:58 | EKG ---
Test Reason : Blood Pressure : / mmHG Vent. Rate : 083 BPM Atrial Rate : 098 BPM P-R Int : 000 ms QRS Dur : 082 ms QT Int : 384 ms P-R-T Axes : 000 031 034 degrees QTc Int : 451 ms ATRIAL FIBRILLATION LOW VOLTAGE QRS NONSPECIFIC ST ABNORMALITY ABNORMAL ECG WHEN COMPARED WITH ECG OF 09-SEP-2017 20:19, MINIMAL CRITERIA FOR INFERIOR INFARCT ARE NO LONGER PRESENT ST NO LONGER DEPRESSED IN INFERIOR LEADS NON-SPECIFIC CHANGE IN ST SEGMENT IN LATERAL LEADS T WAVE INVERSION NO LONGER EVIDENT IN INFERIOR LEADS T WAVE INVERSION NO LONGER EVIDENT IN LATERAL LEADS Confirmed by JOHN GOODMAN MD ([id number]) on 09/11/2017 4:58:20 PM Referred By: EMMA HU DR Confirmed By:JOHN GOODMAN MD
[2017-09-11] MEDS ORDERED: PT OWN MED DRAWER 7, Y5N ONE (17:58)
[2017-09-11] MEDS: RIVAROXABAN 15 MG TABLET PO SCH (17:59)
--- NOTE | 2017-09-11 20:26 | CONSULT ---
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 AFib on Eliqis. Admitted 09/03/17 with bowel obstruction requiring laparotomy lysis of adhesions. Now, off antibiotics, free of signs of infection. Pain controlled, last required MS 09/09 PM. However, patient remains poorly responsive and weak. SANAM: Neck supple. No Bruits. II/ DAISY Protuberant abdomen. Some B.S. NEURO: Resting comfortably with eyes closed. Opens eyes on command and follows all commands. No frontal release findings. Sparse fluent speech. Ox [facility], September 2017, Trump. Recalls August after 2 mins. Full simeon and EOM's. No facial weakness. Gag OK. Elevates both arms without drift. Normal and symmetrical grasps. Elevates both legs. Normal ankle Dorsiflexion. Normal reflexes. Downgoing toes. No obvious dystaxia. Feels vibration all 4's. IMP: Non-focal exam sig for mild B/L cerebral dysfunction. Etiology uncertain and is probably multifactorial but will probably include TIRE STRIPPER hypoperfusion. SUGGEST: Continue current regimen. Mobilize patient when cleared by surgery. Check B12, TSH, T4, Ammonia level CT of head if lethargy persists. Environmental stimulae, Bedside PT, TV, etc. Maximize cardiac output and proceed with valve Rx when stable. Thank you very much, Reinaldo Quinones MD
[2017-09-11] MEDS: CHLORHEXIDINE GLUCONATE 4% CLEANSER FOR DECOLONIZATION TP SCH (22:39)
[2017-09-12] MEDS: INSULIN SLIDING SCALE (NOVOLOG) 1 VIAL SQ SCH ×4 (00:37→18:23)
[2017-09-12 06:19] LABS: HEMATOCRIT 24.3 % (35.4-49); HEMOGLOBIN 7.8 GM/dL (11.7-16.9); MCH 25.4 pg (25.7-33.7); MCHC 32.1 g/dl (32.0-35.9); MEAN PLT VOLUME 8.3 fl (7.5-11.1); PLATELET COUNT 188 K/MM3 (134-434); RBC 3.07 M/mm3 (4.00-5.60); RDW 17.7 % (11.9-15.9); WHITE BLOOD COUNT 9.2 K/mm3 (4.0-10.0)
[2017-09-12 06:31] LABS: INR 1.98 (0.82-1.09); PROTHROMBIN TIME (PATIENT) 22.4 SEC (9.98-11.88)
[2017-09-12 06:42] LABS: ALBUMIN 1.9 g/dl (3.4-5.0); ANION GAP 6 (8-16); BLOOD UREA NITROGEN 23 mg/dL (7-18); CHLORIDE 108 mmol/L (98-107); CO2 27 mmol/L (21-32); GLUCOSE,RANDOM 107 mg/dL (74-106); MAGNESIUM 2.1 mg/dL (1.8-2.4); PHOSPHOROUS 2.2 mg/dL (2.5-4.9); POTASSIUM 4.1 mmol/L (3.5-5.1); SGOT/AST 38 U/L (15-37); SGPT/ALT 45 U/L (12-78); SODIUM 141 mmol/L (136-145)
[2017-09-12 06:53] LABS: ALK PHOS 46 U/L (45-117); BILIRUBIN,TOTAL 0.6 mg/dL (0.2-1.0); TOT PROT 3.9 g/dl (6.4-8.2)
[2017-09-12 07:08] LABS: CALCIUM 6.9 mg/dL (8.5-10.1)
--- NOTE | 2017-09-12 07:19 | PN ---
Progress Note (short form) - Note Progress Note: Chief Complaint: Events noted, notes reviewed, lethargic but arousable, denies any chest pain but complaining of dyspnea, abdominal distention noted, remains in atrial fibrillation rate controlled, on A/C with NOAC's/Xarelto, anemia noted History of Present Illness: Seen and examined in the ICU. Events noted, notes reviewed, lethargic but arousable, denies any chest pain but complaining of dyspnea, abdominal distention noted, remains in atrial fibrillation rate controlled, on A/C with NOAC's/Xarelto, anemia noted Hypotension this AM noted Echocardiography dated 09/07/2017 revealed normal LV systolic function, mild MR ? , technically sub-optimal study - Current Medication List Current Medications Chlorhexidine Gluconate (Hibiclens For Decolonization -) 1 applic TP HS [facility] Last Admin: 09/11/17 22:39 Dose: 1 applic Phenylephrine HCl 20,000 mcg/ (Sodium Chloride) 250 mls @ 37.5 mls/hr IVPB ASDIR MELISSA; 50 MCG/MIN PRN Reason: Protocol Last Titration: 09/09/17 22:00 Dose: 0 mcg/min, 0 mls/hr Insulin Aspart (Novolog Vial Sliding Scale -) 1 vial SQ Q6HPO MELISSA PRN Reason: Protocol Last Admin: 09/12/17 07:04 Dose: Not Given Metoprolol Tartrate (Lopressor -) 12.5 mg PO BID [facility] Morphine Sulfate (Morphine Sulfate) 1 mg IVPUSH Q3H PRN PRN Reason: PAIN LEVEL 1 - 3 Last Admin: 09/09/17 20:49 Dose: 1 mg Pantoprazole Sodium (Protonix Iv) 40 mg IVPUSH DAILY [facility] Last Admin: 09/11/17 09:45 Dose: 40 mg Rivaroxaban (Xarelto -) 15 mg PO DAILY@1800 [facility] Last Admin: 09/11/17 17:59 Dose: 15 mg Review Of Systems: Unable to obtain related to lethargy - Objective Vital Signs: Last Vital Signs Temp Pulse Resp BP Pulse Ox 98.5 F 84 24 96/57 100 09/12/17 06:00 09/12/17 06:00 09/12/17 06:00 09/12/17 06:00 09/11/17 19:22 Intake & Output 02/24/18 09/10/17 09/11/17 09/12/17 23:59 23:59 23:59 23:59 Intake Total 3246.5 350 400 Output Total 500 50 Balance 2746.5 300 400 Weight 205 lb 6.4 oz 208 lb 1.862 oz 207 lb 3.752 oz 208 lb 15.971 oz Constitutional: No Distress, Calm, Thin Neck: Supple Negative JVD No Bruit Cardiovascular: S1 S2 Irregularly Irregular Respiratory: Diminished Breath Sounds at the Bases with Bilateral Expiratory Rhonchi Gastrointestinal: Distended Benign Normal Bowel Sounds Ext: Trace Edema Labs: CBC, BMP 09/12/17 05:55 09/12/17 05:55 Hepatic Panel Total Bilirubin 0.6 mg/dL (0.2-1.0) 09/12/17 05:55 AST 38 U/L (15-37) H 09/12/17 05:55 ALT 45 U/L (12-78) 09/12/17 05:55 Alkaline Phosphatase 46 U/L (45-117) 09/12/17 05:55 Albumin 1.9 g/dl (3.4-5.0) L 09/12/17 05:55 INR, PTT INR 1.98 (0.82-1.09) H 09/12/17 05:55 Assessment/Plan ASSESSMENT: 1. Small bowel/intestinal obstruction, secondary to a band of adhesions post exploratory laparotomy, lysis of adhesions, release of intestinal obstruction, post-op ileus vs recurrence of obstruction 2. Diastolic LV dysfunction with chronic class I-II NYHA classification LV failure 3. Moderate-severe MR for future operative intervention 4. Moderate AR 5. Moderate TR 6. CAD angina pectoris 7. Persistent atrial fibrillation [id number] score of 6 on NOAC's/Xarelto 8. HTN history currently hypotensive 9. DM 10. Hyperlipidemia 11. Anemia 12. Acute on CKD due to hemodynamic alterations improving 13. Lactic acidosis, resolved PLAN: 1. consider transfusion to maintain Hg equal or > 8.0, Xarelto therapy may need to be withheld if anemia persists 2. To resume Diovan once hemodynamic stability is achieved/maintained 3. Continue Lopressor hemodynamics permitting 4. Antibiotics as per the primary team 5. Chest x-ray this AM 6. Surgical F/U for assessment of abdominal dsitention 7. Mitral and tricuspid valve repair/replacement postponed until recovery from this admission Grey Figueroa MD
--- NOTE | 2017-09-12 07:39 | PN ---
Progress Note, Physician History of Present Illness: 24 HOUR EVENTS Given metoprolol 50 mg yesterday for short-lived tachyarrhythmia the morning of 09/11/17 (which appears to have been A-fib with aberrancy per inpatient cardiology team). Systolic BP was >110 at the time metoprolol was administered. subsequently stated patient's home metoprolol dose was reduced recently to 12.5 mg twice a day. Corroborated this with patient's OP java sybase developer Dr. Riojas, home dose is 12.5 mg BID. Will hold additional metoprolol until patient's pressures tolerate and then give only 12.5 mg BID. In the meantime monitored blood pressures, systolic in the 80s consistently yesterday. SUBJECTIVE Overall feels improving, also increased appetite. 24 HOUR INTAKE & OUTPUT In: 400cc Out: Unmeasured in diaper Net: N/A BM: None reported since 09/08 LINES/TUBES/DRAINS Left EJ placed 09/03/17 - Current Medication List Current Medications: Active Medications Chlorhexidine Gluconate (Hibiclens For Decolonization -) 1 applic TP HS [facility] Last Admin: 09/11/17 22:39 Dose: 1 applic Phenylephrine HCl 20,000 mcg/ (Sodium Chloride) 250 mls @ 37.5 mls/hr IVPB ASDIR MELISSA; 50 MCG/MIN PRN Reason: Protocol Last Titration: 09/09/17 22:00 Dose: 0 mcg/min, 0 mls/hr Insulin Aspart (Novolog Vial Sliding Scale -) 1 vial SQ Q6HPO MELISSA PRN Reason: Protocol Last Admin: 09/12/17 07:04 Dose: Not Given Metoprolol Tartrate (Lopressor -) 12.5 mg PO BID [facility] Morphine Sulfate (Morphine Sulfate) 1 mg IVPUSH Q3H PRN PRN Reason: PAIN LEVEL 1 - 3 Last Admin: 09/09/17 20:49 Dose: 1 mg Pantoprazole Sodium (Protonix Iv) 40 mg IVPUSH DAILY [facility] Last Admin: 09/11/17 09:45 Dose: 40 mg Rivaroxaban (Xarelto -) 15 mg PO DAILY@1800 [facility] Last Admin: 09/11/17 17:59 Dose: 15 mg - Objective Vital Signs: Vital Signs Temperature 98.5 F 09/12/17 06:00 Pulse Rate 84 09/12/17 06:00 Respiratory Rate 24 09/12/17 06:00 Blood Pressure 96/57 09/12/17 06:00 O2 Sat by Pulse Oximetry (%) 100 09/11/17 19:22 Constitutional: Yes: Well Nourished, No Distress, Calm, Other (sleepy but arousible, alert and oriented and conversive, hard of hearing and does not have hearing aid in) Eyes: Yes: WNL, Conjunctiva Clear, EOM Intact HENT: Yes: WNL, Atraumatic, Normocephalic Neck: Yes: WNL, Supple, Trachea Midline Cardiovascular: Yes: WNL, Pulse Irregular. No: Tachycardia Respiratory: Yes: WNL, Regular, CTA Bilaterally Gastrointestinal: Yes: Normal Bowel Sounds, Soft, Distention Extremities: Yes: WNL. No: Calf Tenderness, Cold, Cool, Cyanosis, Erythema, Pallor Edema: No Peripheral Pulses: Left Doralis Pedis: 2+, Right Dorsalis Pedis: 2+ Integumentary: Yes: WNL Wound/Incision: Yes: Clean/Dry, Well Approximated, Micky Intact Neurological: Yes: WNL, Alert, Oriented ...Motor Strength: WNL Psychiatric: Yes: WNL, Alert, Oriented Labs: CBC, BMP 09/12/17 05:55 09/12/17 05:55 INR, PTT INR 1.98 (0.82-1.09) H 09/12/17 05:55 - ....Imaging Chest X-ray: Report Reviewed, Image Reviewed, Other (no significant interval change) Assessment/Plan 82 YOM with h/o CAD (scheduled for cardiac cath and valve repair), CHF, mitral stenosis, AFib (on Xarelto), HTN, HLD, DM, CKD, subdural hematoma (about 6 mo ago), presented to ED 09/03 for intermittent vomiting since about 08/31, seen by PMD Dr. Bishop who Rx'ed Zofran and when sxs continued despite taking this, Pt was advised to come to ED. Found e/o SBO and pneumatosis intestinalist on CT, now s/p uncomplicated ex-lap with lysis of adhesions and release of bowel. Given 2 units FFP, vancomycin, zosyn, 7 liters IVF during surgery. NEURO #Lethargy. Neurology saw the patient yesterday at the request of Dr. Bishop d/t persistent lethargy, recommended checking B12, TSH, T4, Ammonia. Ammonia slightly high at 38.77, but B12/thyroid tests within normal limits. Hgb today is 7.7 (patient came in with Hgb >16) and this may be a contributing factor. -Transfuse 1 unit pRBCs today -Continue to monitor H/H -Continue to trend neuro exam GI #SBO with pneumatosis intestinalis. Adhesions lysed and SBO reduced in OR. Received vancomycin/Zosyn. Abdominal XR from 09/07 PM showed bilateral obstruction with worsened dilation of small bowel. Pending final read of CT abdomen/pelvis with PO contrast from 09/08. -Monitor BM for melena -Surgery Dr. Calhoun following -Pain management w/ morphine #Constipation, persistent. Last reported BM was 09/08/17. Most likely post- operative ileus. CT abdomen/pelvis consistent with this. Abdominal distention is persistent but slight improvement and abdomen has been soft for the duration of post-operative period. -Monitor for BM -Serial abdominal exams -May repeat FOBT when has BM -Bowel regimen #Melena, resolving. Also worsening anemia requiring transfusion. -Transfuse as needed -Monitor INR, H/H ID: #Sepsis, improved. In ED HR was up to 133, BP down to 92/68, 90% pulse ox. Likely 2/2 SBO with pneumatosis intestinalis. No perforation seen on ex-lap. -Continue Zosyn, Flagyl -Trend CBCD -F/U cultures #Pneumatosis intestinalis, improved. Likely 2/2 SBO which was reduced in OR. Patient's abdomen is distended slightly more than prior days. -Serial abdominal exams CV: #Tachyarrhythmia. Patient with chronic A-fib, yesterday had episode of A-fib with aberrancy. Review of prior rhythm strip from Monday's reported tachyarrhythmia actually shows artifact instead of any other concerning arrhythmia. EKG, cardiac enzymes, CXR unchanged. -Keep on monitor -Inpatient cardiology following, believes episodes of tachyarrhythmia will improve with home metoprolol -Metoprolol ordered with conditions to hold if systolic BP<90 or MAP<60 -Metoprolol dosage 12.5 mg BID per patient's OP java sybase developer #Hypotension, fluctuating. Echo without acute worsening. Off pressors. -Diovan 80 mg qd and Lopressor 12.5 mg bid as hemodynamics tolerate -Hydrate with IVF with caution #A-fib on AC, chronic. Health Social Work Professor: Dr. Riojas . [id number] score of 6, on Xarelto. -Metoprolol 12.5 mg for rate control as BP tolerates -Continue home Xarelto -Cardiology following #CAD -Continue home medications PULM #Hypoxia, resolved. Likely 2/2 fluid overload and CHF exacerbation. -Careful prn if clinically volume overloaded or congestion on CXR -Encourage incentive spirometry; family also on board to encourage RENAL #RILEY on CKD, improved. -Continue IVF and Lasix -Trend BUN/Cr/UOP FEN -Monitor CMP, Mg, Phos, UOP -Replace electrolytes prn -Careful hydration d/t cardiac history (CHF) -Advance diet as tolerated PPX DVT: Xarelto GI: Protonix PT: Order placed DISPO Appropriate for transfer to telemetry.
[2017-09-12] MEDS ORDERED: METOPROLOL TARTRATE 50 MG TABLET (FP) PO SCH (08:00)
--- NOTE | 2017-09-12 09:04 | PN ---
Progress Note, Physician Chief Complaint: Awake and talking History of Present Illness: Eating better S/P exploratory lap - Current Medication List Current Medications: Active Medications Chlorhexidine Gluconate (Hibiclens For Decolonization -) 1 applic TP HS [facility] Last Admin: 09/11/17 22:39 Dose: 1 applic Phenylephrine HCl 20,000 mcg/ (Sodium Chloride) 250 mls @ 37.5 mls/hr IVPB ASDIR MELISSA; 50 MCG/MIN PRN Reason: Protocol Last Titration: 09/09/17 22:00 Dose: 0 mcg/min, 0 mls/hr Insulin Aspart (Novolog Vial Sliding Scale -) 1 vial SQ Q6HPO MELISSA PRN Reason: Protocol Last Admin: 09/12/17 07:04 Dose: Not Given Metoprolol Tartrate (Lopressor -) 12.5 mg PO BID [facility] Morphine Sulfate (Morphine Sulfate) 1 mg IVPUSH Q3H PRN PRN Reason: PAIN LEVEL 1 - 3 Last Admin: 09/09/17 20:49 Dose: 1 mg Pantoprazole Sodium (Protonix Iv) 40 mg IVPUSH DAILY [facility] Last Admin: 09/11/17 09:45 Dose: 40 mg Rivaroxaban (Xarelto -) 15 mg PO DAILY@1800 [facility] Last Admin: 09/11/17 17:59 Dose: 15 mg - Objective Vital Signs: Vital Signs Temperature 98.5 F 09/12/17 06:00 Pulse Rate 86 09/12/17 08:00 Respiratory Rate 24 09/12/17 08:00 Blood Pressure 89/56 09/12/17 08:00 O2 Sat by Pulse Oximetry (%) 100 09/11/17 19:22 Constitutional: Yes: Calm Eyes: Yes: WNL HENT: Yes: WNL Neck: Yes: WNL Cardiovascular: Yes: Pulse Irregular Respiratory: Yes: WNL Gastrointestinal: Yes: Hypoactive Bowel Sounds ...Rectal Exam: Yes: Deferred Genitourinary: Yes: WNL Edema: No Wound/Incision: Yes: Clean/Dry Psychiatric: Yes: Alert Labs: CBC, BMP 09/12/17 05:55 09/12/17 05:55 INR, PTT INR 1.98 (0.82-1.09) H 09/12/17 05:55 Assessment/Plan Dr Piedra neuro consult appreciated PT for ambulation
[2017-09-12 10:04] LABS: ANISOCYTOSIS 2+; MACROCYTOSIS 0; OVALOCYTE 1+; PLATELET ESTIMATE NORMAL
--- NOTE | 2017-09-12 10:08 | PN ---
Progress Note, Physician - Current Medication List Current Medications: Active Medications Chlorhexidine Gluconate (Hibiclens For Decolonization -) 1 applic TP HS [facility] Last Admin: 09/11/17 22:39 Dose: 1 applic Phenylephrine HCl 20,000 mcg/ (Sodium Chloride) 250 mls @ 37.5 mls/hr IVPB ASDIR MELISSA; 50 MCG/MIN PRN Reason: Protocol Last Titration: 09/09/17 22:00 Dose: 0 mcg/min, 0 mls/hr Insulin Aspart (Novolog Vial Sliding Scale -) 1 vial SQ Q6HPO [facility] PRN Reason: Protocol Last Admin: 09/12/17 07:04 Dose: Not Given Metoprolol Tartrate (Lopressor -) 12.5 mg PO BID [facility] Morphine Sulfate (Morphine Sulfate) 1 mg IVPUSH Q3H PRN PRN Reason: PAIN LEVEL 1 - 3 Last Admin: 09/09/17 20:49 Dose: 1 mg Pantoprazole Sodium (Protonix Iv) 40 mg IVPUSH DAILY [facility] Last Admin: 09/11/17 09:45 Dose: 40 mg Rivaroxaban (Xarelto -) 15 mg PO DAILY@1800 [facility] Last Admin: 09/11/17 17:59 Dose: 15 mg - Objective Vital Signs: Vital Signs Temperature 98.4 F 09/12/17 09:55 Pulse Rate 88 09/12/17 09:55 Respiratory Rate 24 09/12/17 09:55 Blood Pressure 89/63 09/12/17 09:55 O2 Sat by Pulse Oximetry (%) 100 09/12/17 09:00 Labs: CBC, BMP 09/12/17 05:55 09/12/17 05:55 INR, PTT INR 1.98 (0.82-1.09) H 09/12/17 05:55 Problem List - Problems (1) Abdominal pain Code(s): R10.9 - UNSPECIFIED ABDOMINAL PAIN Qualifiers: Abdominal location: left upper quadrant Qualified Code(s): R10.12 - Left upper quadrant pain (2) Small bowel obstruction Code(s): K56.609 - UNSP INTESTNL OBST, UNSP TO PARTIAL VERSUS COMPLETE OBST (3) Heart failure, diastolic, with acute decompensation Code(s): I50.33 - ACUTE ON CHRONIC DIASTOLIC (CONGESTIVE) HEART FAILURE (4) Moderate to severe mitral regurgitation Code(s): I34.0 - NONRHEUMATIC MITRAL (VALVE) INSUFFICIENCY (5) Pneumatosis intestinalis of small intestine Code(s): K63.89 - OTHER SPECIFIED DISEASES OF INTESTINE Assessment/Plan Surgery: Patient is aropusable. Abdomen is soft , Wound is clean . Encourage oral feeding. Will supplement with Boost.
[2017-09-12] MEDS: METOPROLOL TARTRATE 25 MG TABLET (FP) PO SCH ×3 (10:27→22:03)
[2017-09-12] MEDS: PANTOPRAZOLE SODIUM 40 MG VIAL IVPUSH SCH (10:29)
--- NOTE | 2017-09-12 13:19 | PN ---
Teaching Attending Note Name of Resident: Evonne Taylorean ATTENDING PHYSICIAN STATEMENT I saw and evaluated the patient. I reviewed the resident's note and discussed the case with the resident. I agree with the resident's findings and plan as documented. SUBJECTIVE: Pt seen and examined in the ICU. Remains somnolent but arousable. +flatus without bowel movements. No fevers or chills. No further ectopy. Tolerating beta elizabeth. OBJECTIVE: Last Vital Signs Temp Pulse Resp BP Pulse Ox 98.6 F 88 22 97/63 100 09/12/17 13:14 09/12/17 13:14 09/12/17 13:14 09/12/17 13:14 09/12/17 09:00 Intake & Output 09/09/17 09/10/17 09/11/17 09/12/17 23:59 23:59 23:59 23:59 Intake Total 3246.5 350 400 Output Total 500 50 Balance 2746.5 300 400 Weight 93.168 kg 94.4 kg 94 kg 94.8 kg Gen: somnolent but arousable Heart: RRR Lung: decreased breath sounds at the bases Abd: soft, nontender, +BS Ext: trace edema CBC, BMP 09/12/17 05:55 09/12/17 05:55 Active Medications Chlorhexidine Gluconate (Hibiclens For Decolonization -) 1 applic TP HS [facility] Last Admin: 09/11/17 22:39 Dose: 1 applic Phenylephrine HCl 20,000 mcg/ (Sodium Chloride) 250 mls @ 37.5 mls/hr IVPB ASDIR MELISSA; 50 MCG/MIN PRN Reason: Protocol Last Titration: 09/09/17 22:00 Dose: 0 mcg/min, 0 mls/hr Insulin Aspart (Novolog Vial Sliding Scale -) 1 vial SQ Q6HPO [facility] PRN Reason: Protocol Last Admin: 09/12/17 07:04 Dose: Not Given Metoprolol Tartrate (Lopressor -) 12.5 mg PO BID [facility] Last Admin: 09/12/17 11:24 Dose: 12.5 mg Morphine Sulfate (Morphine Sulfate) 1 mg IVPUSH Q3H PRN PRN Reason: PAIN LEVEL 1 - 3 Last Admin: 09/09/17 20:49 Dose: 1 mg Pantoprazole Sodium (Protonix Iv) 40 mg IVPUSH DAILY [facility] Last Admin: 09/12/17 10:29 Dose: 40 mg Rivaroxaban (Xarelto -) 15 mg PO DAILY@1800 [facility] Last Admin: 09/11/17 17:59 Dose: 15 mg ASSESSMENT AND PLAN: Small Bowel Obstruction s/p Ex-lap/PARDEEP LV diastolic Dysfunction Severe Mitral Regurgitation CAD Atrial Fibrillation HTN DM Acute Kidney Injury improving - PO as tolerated - monitor lytes - rate control with beta elizabeth - continue anticoagulation - transfuse PRBC today - monitor H/H - rehab/PT/OOB to chair - can monitor on telemetry
[2017-09-12] MEDS ORDERED: PT OWN MED DRAWER 7, Y5N ONE (18:41)
[2017-09-12] MEDS: RIVAROXABAN 15 MG TABLET PO SCH (18:43)
[2017-09-12] MEDS ORDERED: CHLORHEXIDINE GLUCONATE 4% CLEANSER FOR DECOLONIZATION TP SCH (22:00)
[2017-09-13] MEDS: INSULIN SLIDING SCALE (NOVOLOG) 1 VIAL SQ SCH ×4 (00:36→17:39)
[2017-09-13 07:04] LABS: INR 2.04 (0.82-1.09)
[2017-09-13 07:07] LABS: ACTIVATED PTT 35.8 SECONDS (26.9-34.4)
[2017-09-13 07:14] LABS: HEMATOCRIT 29.9 % (35.4-49); HEMOGLOBIN 9.7 GM/dL (11.7-16.9); MCH 25.8 pg (25.7-33.7); MCHC 32.5 g/dl (32.0-35.9); MEAN CELL VOLUME 79.2 fl (80-96); PLATELET COUNT 187 K/MM3 (134-434); RBC 3.78 M/mm3 (4.00-5.60); RDW 17.6 % (11.9-15.9); WHITE BLOOD COUNT 10.6 K/mm3 (4.0-10.0)
[2017-09-13 07:42] LABS: ALBUMIN 2.1 g/dl (3.4-5.0); ANION GAP 6 (8-16); BILIRUBIN,TOTAL 0.9 mg/dL (0.2-1.0); BLOOD UREA NITROGEN 19 mg/dL (7-18); CHLORIDE 106 mmol/L (98-107); CO2 29 mmol/L (21-32); CREATININE 1.1 mg/dL (0.7-1.3); GLUCOSE,RANDOM 105 mg/dL (74-106); MAGNESIUM 2.3 mg/dL (1.8-2.4); PHOSPHOROUS 2.3 mg/dL (2.5-4.9); SGOT/AST 36 U/L (15-37); SGPT/ALT 45 U/L (12-78); SODIUM 141 mmol/L (136-145); TOT PROT 4.2 g/dl (6.4-8.2)
[2017-09-13 07:43] LABS: ALK PHOS 50 U/L (45-117)
--- NOTE | 2017-09-13 09:04 | PN ---
Progress Note, Physician Chief Complaint: Feels better History of Present Illness: S/P exploratory lap On clear liquids - Current Medication List Current Medications: Active Medications Insulin Aspart (Novolog Vial Sliding Scale -) 1 vial SQ Q6HPO [facility] PRN Reason: Protocol Last Admin: 09/13/17 06:46 Dose: Not Given Metoprolol Tartrate (Lopressor -) 12.5 mg PO BID [facility] Last Admin: 09/12/17 22:03 Dose: 12.5 mg Pantoprazole Sodium (Protonix Iv) 40 mg IVPUSH DAILY [facility] Rivaroxaban (Xarelto -) 15 mg PO DAILY@1800 [facility] - Objective Vital Signs: Vital Signs Temperature 97.6 F 09/13/17 07:56 Pulse Rate 79 09/13/17 07:56 Respiratory Rate 20 09/13/17 07:59 Blood Pressure 97/52 09/13/17 07:56 O2 Sat by Pulse Oximetry (%) 99 09/13/17 07:59 Constitutional: Yes: No Distress Eyes: Yes: WNL HENT: Yes: WNL Neck: Yes: Supple Cardiovascular: Yes: Pulse Irregular Respiratory: Yes: On Nasal O2 Gastrointestinal: Yes: Normal Bowel Sounds ...Rectal Exam: Yes: Deferred Genitourinary: Yes: WNL Musculoskeletal: Yes: Muscle Weakness Edema: No Wound/Incision: Yes: Clean/Dry Neurological: Yes: Alert Psychiatric: Yes: WNL Labs: CBC, BMP 09/13/17 06:35 09/13/17 06:35 INR, PTT INR 2.04 (0.82-1.09) H 09/13/17 06:35 Assessment/Plan PT for ambulation traffic monitor specialist showed few poses ,will discuss with cardiology
[2017-09-13 09:07] LABS: ANISOCYTOSIS 1+; MACROCYTOSIS 1+; OVALOCYTE 1+; PLATELET ESTIMATE NORMAL; TARGET CELLS 1+; TEAR DROP CELLS 1+
[2017-09-13] MEDS: METOPROLOL TARTRATE 25 MG TABLET (FP) PO SCH ×2 (09:26→21:44)
[2017-09-13] MEDS: PANTOPRAZOLE SODIUM 40 MG VIAL IVPUSH SCH (09:26)
--- NOTE | 2017-09-13 09:58 | PN ---
Progress Note, Physician History of Present Illness: Tolerating oral intake and remains in rate-controlled afib. Hgb stable post- transfusion. OOB to chair. - Current Medication List Current Medications: Active Medications Insulin Aspart (Novolog Vial Sliding Scale -) 1 vial SQ Q6HPO [facility] PRN Reason: Protocol Last Admin: 09/13/17 06:46 Dose: Not Given Metoprolol Tartrate (Lopressor -) 12.5 mg PO BID [facility] Last Admin: 09/13/17 09:26 Dose: 12.5 mg Pantoprazole Sodium (Protonix Iv) 40 mg IVPUSH DAILY [facility] Last Admin: 09/13/17 09:26 Dose: 40 mg Rivaroxaban (Xarelto -) 15 mg PO DAILY@1800 [facility] - Objective Vital Signs: Vital Signs Temperature 97.6 F 09/13/17 07:56 Pulse Rate 79 09/13/17 07:56 Respiratory Rate 20 09/13/17 07:59 Blood Pressure 97/52 09/13/17 07:56 O2 Sat by Pulse Oximetry (%) 99 09/13/17 07:59 Constitutional: Yes: No Distress, Calm, Thin Neck: Yes: Supple Cardiovascular: Yes: Pulse Irregular, Murmur (2/6 SM) Respiratory: Yes: Regular, Diminished, On Nasal O2 Gastrointestinal: Yes: Normal Bowel Sounds, Soft Edema: No Labs: CBC, BMP 09/13/17 06:35 09/13/17 06:35 INR, PTT INR 2.04 (0.82-1.09) H 09/13/17 06:35 - ....Imaging Chest X-ray: Report Reviewed (Left ATX/infiltrates) EKG: Report Reviewed (Tele: Rate-controlled afib) Problem List - Problems (1) Status post exploratory laparotomy Code(s): Z98.890 - OTHER SPECIFIED POSTPROCEDURAL STATES (2) Pneumatosis intestinalis of small intestine Code(s): K63.89 - OTHER SPECIFIED DISEASES OF INTESTINE (3) Small bowel obstruction Code(s): K56.609 - UNSP INTESTNL OBST, UNSP TO PARTIAL VERSUS COMPLETE OBST (4) Hypertensive cardiomyopathy Code(s): I11.9 - HYPERTENSIVE HEART DISEASE WITHOUT HEART FAILURE; I43 - CARDIOMYOPATHY IN DISEASES CLASSIFIED ELSEWHERE Qualifiers: Heart failure presence: without heart failure Qualified Code(s): I11.9 - Hypertensive heart disease without heart failure; I43 - Cardiomyopathy in diseases classified elsewhere; I43 - Cardiomyopathy in diseases classified elsewhere; I43 - Cardiomyopathy in diseases classified elsewhere; I43 - Cardiomyopathy in diseases classified elsewhere (5) Moderate aortic regurgitation Code(s): I35.1 - NONRHEUMATIC AORTIC (VALVE) INSUFFICIENCY (6) Moderate to severe mitral regurgitation Code(s): I34.0 - NONRHEUMATIC MITRAL (VALVE) INSUFFICIENCY (7) Persistent atrial fibrillation Code(s): I48.1 - PERSISTENT ATRIAL FIBRILLATION (8) T2DM (type 2 diabetes mellitus) Code(s): E11.9 - TYPE 2 DIABETES MELLITUS WITHOUT COMPLICATIONS Qualifiers: Diabetes mellitus complication detail: with diabetic retinopathy Assessment/Plan 1. Small intestinal obstruction, secondary to a band of adhesions s/p exploratory laparotomy, lysis of adhesions, release of intestinal obstruction with post-op ileus 2. Chronic diastolic failure with underlying moderate - severe MR, moderate AR, TR 3. CAD, angina pectoris 4. Persistent atrial fibrillation [id number] on NOAC 5. HTN/HCVD 6. Type 2 DM 7. Hyperlipidemia 8. Acute on CKD due to hemodynamic alterations resolved 9. Lactic acidosis and leukocytosis resolved PLAN: 1. Advance diet as tolerated, PT->SNF 2. Resume Diovan 80 mg qd and Lopressor 25 mg bid as hemodynamics tolerate 3. Increase to full-dose Xarelto 20 qd with recovery of renal fxn, f/u Hgb, completed empiric abx course 4. Mitral and tricuspid valve repair/replacement postponed until recovery from this admission 5. OOB to chair
[2017-09-13] MEDS: RIVAROXABAN 20 MG TABLET PO SCH (17:38)
[2017-09-13] MEDS ORDERED: RIVAROXABAN 15 MG TABLET PO SCH (18:00)
[2017-09-14] MEDS: INSULIN SLIDING SCALE (NOVOLOG) 1 VIAL SQ SCH ×4 (00:16→17:39)
--- NOTE | 2017-09-14 09:31 | PN ---
Progress Note, Physician Chief Complaint: Feels better - Current Medication List Current Medications: Active Medications Insulin Aspart (Novolog Vial Sliding Scale -) 1 vial SQ Q6HPO [facility] PRN Reason: Protocol Last Admin: 09/14/17 06:18 Dose: Not Given Metoprolol Tartrate (Lopressor -) 25 mg PO BID [facility] Last Admin: 09/13/17 21:44 Dose: 25 mg Pantoprazole Sodium (Protonix Iv) 40 mg IVPUSH DAILY [facility] Last Admin: 09/13/17 09:26 Dose: 40 mg Rivaroxaban (Xarelto -) 20 mg PO DAILY@1800 [facility] Last Admin: 09/13/17 17:38 Dose: 20 mg - Objective Vital Signs: Vital Signs Temperature 97.7 F 09/14/17 06:00 Pulse Rate 81 09/14/17 06:00 Respiratory Rate 20 09/14/17 06:00 Blood Pressure 94/50 09/14/17 06:00 O2 Sat by Pulse Oximetry (%) 99 09/13/17 22:00 Constitutional: Yes: Calm Eyes: Yes: WNL HENT: Yes: WNL Neck: Yes: WNL Cardiovascular: Yes: WNL, Pulse Irregular Respiratory: Yes: WNL Gastrointestinal: Yes: Normal Bowel Sounds ...Rectal Exam: Yes: Deferred Musculoskeletal: Yes: Muscle Weakness Edema: No Neurological: Yes: Alert Psychiatric: Yes: Alert Labs: CBC, BMP 09/13/17 06:35 09/13/17 06:35 INR, PTT INR 2.04 (0.82-1.09) H 09/13/17 06:35 Assessment/Plan SNF ,will talk with family
[2017-09-14] MEDS: PANTOPRAZOLE SODIUM 40 MG VIAL IVPUSH SCH (09:45)
--- NOTE | 2017-09-14 10:32 | PN ---
Progress Note, Physician History of Present Illness: Tolerating oral intake and remains in rate-controlled afib. Hgb stable post- transfusion. Await transfer to SNF. - Current Medication List Current Medications: Active Medications Insulin Aspart (Novolog Vial Sliding Scale -) 1 vial SQ Q6HPO [facility] PRN Reason: Protocol Last Admin: 09/14/17 06:18 Dose: Not Given Metoprolol Tartrate (Lopressor -) 25 mg PO BID [facility] Last Admin: 09/13/17 21:44 Dose: 25 mg Pantoprazole Sodium (Protonix Iv) 40 mg IVPUSH DAILY [facility] Last Admin: 09/13/17 09:26 Dose: 40 mg Rivaroxaban (Xarelto -) 20 mg PO DAILY@1800 [facility] Last Admin: 09/13/17 17:38 Dose: 20 mg - Objective Vital Signs: Vital Signs Temperature 97.7 F 09/14/17 06:00 Pulse Rate 81 09/14/17 06:00 Respiratory Rate 20 09/14/17 06:00 Blood Pressure 94/50 09/14/17 06:00 O2 Sat by Pulse Oximetry (%) 99 09/13/17 22:00 Constitutional: Yes: No Distress, Calm, Thin Cardiovascular: Yes: Pulse Irregular, Murmur (2/6 SM) Respiratory: Yes: Regular, Diminished Gastrointestinal: Yes: Normal Bowel Sounds, Soft Edema: No Labs: CBC, BMP 09/13/17 06:35 09/13/17 06:35 INR, PTT INR 2.04 (0.82-1.09) H 09/13/17 06:35 - ....Imaging EKG: Report Reviewed (Tele: Rate-controlled afib) Problem List - Problems (1) Status post exploratory laparotomy Code(s): Z98.890 - OTHER SPECIFIED POSTPROCEDURAL STATES (2) Pneumatosis intestinalis of small intestine Code(s): K63.89 - OTHER SPECIFIED DISEASES OF INTESTINE (3) Small bowel obstruction Code(s): K56.609 - UNSP INTESTNL OBST, UNSP TO PARTIAL VERSUS COMPLETE OBST (4) Hypertensive cardiomyopathy Code(s): I11.9 - HYPERTENSIVE HEART DISEASE WITHOUT HEART FAILURE; I43 - CARDIOMYOPATHY IN DISEASES CLASSIFIED ELSEWHERE Qualifiers: Heart failure presence: without heart failure Qualified Code(s): I11.9 - Hypertensive heart disease without heart failure; I43 - Cardiomyopathy in diseases classified elsewhere; I43 - Cardiomyopathy in diseases classified elsewhere; I43 - Cardiomyopathy in diseases classified elsewhere; I43 - Cardiomyopathy in diseases classified elsewhere (5) Moderate aortic regurgitation Code(s): I35.1 - NONRHEUMATIC AORTIC (VALVE) INSUFFICIENCY (6) Moderate to severe mitral regurgitation Code(s): I34.0 - NONRHEUMATIC MITRAL (VALVE) INSUFFICIENCY (7) Persistent atrial fibrillation Code(s): I48.1 - PERSISTENT ATRIAL FIBRILLATION (8) T2DM (type 2 diabetes mellitus) Code(s): E11.9 - TYPE 2 DIABETES MELLITUS WITHOUT COMPLICATIONS Qualifiers: Diabetes mellitus complication detail: with diabetic retinopathy Assessment/Plan 1. Small intestinal obstruction, secondary to a band of adhesions s/p exploratory laparotomy, lysis of adhesions, release of intestinal obstruction with post-op ileus resolved 2. Chronic diastolic failure with underlying moderate - severe MR, moderate AR, TR 3. CAD, angina pectoris 4. Persistent atrial fibrillation [id number] on NOAC 5. HTN/HCVD 6. Type 2 DM 7. Hyperlipidemia 8. Acute on CKD due to hemodynamic alterations resolved 9. Lactic acidosis and leukocytosis resolved PLAN: 1. Advance diet as tolerated, PT->SNF 2. Resume Diovan 80 mg qd and Lopressor 25 mg bid as hemodynamics tolerate 3. Continue full-dose Xarelto 20 qd with recovery of renal fxn, f/u Hgb, completed empiric abx course 4. Mitral and tricuspid valve repair/replacement postponed until recovery from this admission 5. Await SNF placement
[2017-09-14] MEDS: METOPROLOL TARTRATE 25 MG TABLET (FP) PO SCH ×2 (10:49→21:48)
--- NOTE | 2017-09-14 15:11 | PN ---
Progress Note (short form) - Note Progress Note: Resting in NAD. Overall appears better. Tolerating PO intake. Intake & Output 09/11/17 09/12/17 09/13/17 09/14/17 23:59 23:59 23:59 23:59 Intake Total 400 540 890 520 Balance 400 540 890 520 Weight 207 lb 3.752 oz 208 lb 15.971 oz 208 lb 6.4 oz 206 lb Last Vital Signs Temp Pulse Resp BP Pulse Ox 97.7 F 81 20 94/50 99 09/14/17 06:00 09/14/17 06:00 09/14/17 06:00 09/14/17 06:00 09/13/17 22:00 Active Medications Insulin Aspart (Novolog Vial Sliding Scale -) 1 vial SQ Q6HPO [facility] PRN Reason: Protocol Last Admin: 09/14/17 12:26 Dose: Not Given Metoprolol Tartrate (Lopressor -) 25 mg PO BID [facility] Last Admin: 09/14/17 10:49 Dose: Not Given Pantoprazole Sodium (Protonix Iv) 40 mg IVPUSH DAILY [facility] Last Admin: 09/14/17 09:45 Dose: 40 mg Rivaroxaban (Xarelto -) 20 mg PO DAILY@1800 [facility] Last Admin: 09/13/17 17:38 Dose: 20 mg Gen: NAD Heart: RRR Lung: decreased breath sounds at the bases Abd: soft, nontender, (+) BS Ext: no edema Laboratory Results - last 24 hr 09/13/17 09/13/17 09/14/17 17:29 23:38 06:17 POC Glucometer 163 114 123 09/14/17 12:23 POC Glucometer 123 ASSESSMENT AND PLAN: Small Bowel Obstruction s/p Ex-lap/PARDEEP LV diastolic Dysfunction Severe Mitral Regurgitation CAD Atrial Fibrillation HTN DM Acute Kidney Injury improving - PO as tolerated - rate control - continue anticoagulation - rehab/PT - D/C planning Dr Arboleda
[2017-09-14] MEDS: RIVAROXABAN 20 MG TABLET PO SCH (17:40)
--- NOTE | 2017-09-14 18:57 | PN ---
Progress Note, Physician - Current Medication List Current Medications: Active Medications Insulin Aspart (Novolog Vial Sliding Scale -) 1 vial SQ Q6HPO [facility] PRN Reason: Protocol Last Admin: 09/14/17 17:39 Dose: Not Given Metoprolol Tartrate (Lopressor -) 25 mg PO BID [facility] Last Admin: 09/14/17 10:49 Dose: Not Given Pantoprazole Sodium (Protonix Iv) 40 mg IVPUSH DAILY [facility] Last Admin: 09/14/17 09:45 Dose: 40 mg Rivaroxaban (Xarelto -) 20 mg PO DAILY@1800 [facility] Last Admin: 09/14/17 17:40 Dose: 20 mg - Objective Vital Signs: Vital Signs Temperature 98.7 F 09/14/17 15:00 Pulse Rate 84 09/14/17 15:00 Respiratory Rate 20 09/14/17 15:00 Blood Pressure 99/57 09/14/17 15:00 O2 Sat by Pulse Oximetry (%) 99 09/14/17 09:00 Labs: CBC, BMP 09/13/17 06:35 09/13/17 06:35 INR, PTT INR 2.04 (0.82-1.09) H 09/13/17 06:35 Problem List - Problems (1) Abdominal pain Code(s): R10.9 - UNSPECIFIED ABDOMINAL PAIN Qualifiers: Abdominal location: left upper quadrant Qualified Code(s): R10.12 - Left upper quadrant pain (2) Small bowel obstruction Code(s): K56.609 - UNSP INTESTNL OBST, UNSP TO PARTIAL VERSUS COMPLETE OBST (3) Heart failure, diastolic, with acute decompensation Code(s): I50.33 - ACUTE ON CHRONIC DIASTOLIC (CONGESTIVE) HEART FAILURE (4) Moderate to severe mitral regurgitation Code(s): I34.0 - NONRHEUMATIC MITRAL (VALVE) INSUFFICIENCY (5) Pneumatosis intestinalis of small intestine Code(s): K63.89 - OTHER SPECIFIED DISEASES OF INTESTINE Assessment/Plan Surgery: patient is comfortable. Wound is clean. Having bowel movemnts. No surgical issues.
[2017-09-15] MEDS: INSULIN SLIDING SCALE (NOVOLOG) 1 VIAL SQ SCH ×4 (00:19→23:56)
[2017-09-15] MEDS: PANTOPRAZOLE SODIUM 40 MG VIAL IVPUSH SCH (10:31)
--- NOTE | 2017-09-15 10:38 | PN ---
Progress Note, Physician - Current Medication List Current Medications: Active Medications Insulin Aspart (Novolog Vial Sliding Scale -) 1 vial SQ Q6HPO [facility] PRN Reason: Protocol Last Admin: 09/15/17 06:19 Dose: Not Given Metoprolol Tartrate (Lopressor -) 25 mg PO BID [facility] Last Admin: 09/14/17 21:48 Dose: Not Given Pantoprazole Sodium (Protonix Iv) 40 mg IVPUSH DAILY [facility] Last Admin: 09/14/17 09:45 Dose: 40 mg Rivaroxaban (Xarelto -) 20 mg PO DAILY@1800 [facility] Last Admin: 09/14/17 17:40 Dose: 20 mg - Objective Vital Signs: Vital Signs Temperature 98.7 F 09/15/17 06:00 Pulse Rate 91 H 09/15/17 06:00 Respiratory Rate 18 09/15/17 06:00 Blood Pressure 104/54 09/15/17 06:00 O2 Sat by Pulse Oximetry (%) 96 09/15/17 06:00 Labs: CBC, BMP 09/13/17 06:35 09/13/17 06:35 INR, PTT INR 2.04 (0.82-1.09) H 09/13/17 06:35 Problem List - Problems (1) Abdominal pain Code(s): R10.9 - UNSPECIFIED ABDOMINAL PAIN Qualifiers: Abdominal location: left upper quadrant Qualified Code(s): R10.12 - Left upper quadrant pain (2) Small bowel obstruction Code(s): K56.609 - UNSP INTESTNL OBST, UNSP TO PARTIAL VERSUS COMPLETE OBST (3) Heart failure, diastolic, with acute decompensation Code(s): I50.33 - ACUTE ON CHRONIC DIASTOLIC (CONGESTIVE) HEART FAILURE (4) Moderate to severe mitral regurgitation Code(s): I34.0 - NONRHEUMATIC MITRAL (VALVE) INSUFFICIENCY (5) Pneumatosis intestinalis of small intestine Code(s): K63.89 - OTHER SPECIFIED DISEASES OF INTESTINE Assessment/Plan Patient is alert and oriented. he os tolerating diet. Abdomen is sofr, not distended. wound is clean, All vishnu are removed. Will sign off.
--- NOTE | 2017-09-15 10:54 | PN ---
Progress Note, Physician History of Present Illness: Tolerating oral intake and remains in rate-controlled afib. Hgb stable post- transfusion. Await transfer to SNF. - Current Medication List Current Medications: Active Medications Insulin Aspart (Novolog Vial Sliding Scale -) 1 vial SQ Q6HPO [facility] PRN Reason: Protocol Last Admin: 09/15/17 06:19 Dose: Not Given Metoprolol Tartrate (Lopressor -) 25 mg PO BID [facility] Last Admin: 09/14/17 21:48 Dose: Not Given Pantoprazole Sodium (Protonix Iv) 40 mg IVPUSH DAILY [facility] Last Admin: 09/14/17 09:45 Dose: 40 mg Rivaroxaban (Xarelto -) 20 mg PO DAILY@1800 [facility] Last Admin: 09/14/17 17:40 Dose: 20 mg - Objective Vital Signs: Vital Signs Temperature 98.7 F 09/15/17 06:00 Pulse Rate 91 H 09/15/17 06:00 Respiratory Rate 18 09/15/17 06:00 Blood Pressure 104/54 09/15/17 06:00 O2 Sat by Pulse Oximetry (%) 96 09/15/17 06:00 Constitutional: Yes: No Distress, Calm, Thin Neck: Yes: Supple Cardiovascular: Yes: Pulse Irregular, Murmur (2/6 SM) Respiratory: Yes: Regular, CTA Bilaterally Gastrointestinal: Yes: Normal Bowel Sounds, Soft Edema: No Labs: CBC, BMP 09/13/17 06:35 09/13/17 06:35 INR, PTT INR 2.04 (0.82-1.09) H 09/13/17 06:35 - ....Imaging EKG: Report Reviewed (Tele: Rate-controlled afib) Problem List - Problems (1) Status post exploratory laparotomy Code(s): Z98.890 - OTHER SPECIFIED POSTPROCEDURAL STATES (2) Pneumatosis intestinalis of small intestine Code(s): K63.89 - OTHER SPECIFIED DISEASES OF INTESTINE (3) Small bowel obstruction Code(s): K56.609 - UNSP INTESTNL OBST, UNSP TO PARTIAL VERSUS COMPLETE OBST (4) Hypertensive cardiomyopathy Code(s): I11.9 - HYPERTENSIVE HEART DISEASE WITHOUT HEART FAILURE; I43 - CARDIOMYOPATHY IN DISEASES CLASSIFIED ELSEWHERE Qualifiers: Heart failure presence: without heart failure Qualified Code(s): I11.9 - Hypertensive heart disease without heart failure; I43 - Cardiomyopathy in diseases classified elsewhere; I43 - Cardiomyopathy in diseases classified elsewhere; I43 - Cardiomyopathy in diseases classified elsewhere; I43 - Cardiomyopathy in diseases classified elsewhere (5) Moderate aortic regurgitation Code(s): I35.1 - NONRHEUMATIC AORTIC (VALVE) INSUFFICIENCY (6) Moderate to severe mitral regurgitation Code(s): I34.0 - NONRHEUMATIC MITRAL (VALVE) INSUFFICIENCY (7) Persistent atrial fibrillation Code(s): I48.1 - PERSISTENT ATRIAL FIBRILLATION (8) T2DM (type 2 diabetes mellitus) Code(s): E11.9 - TYPE 2 DIABETES MELLITUS WITHOUT COMPLICATIONS Qualifiers: Diabetes mellitus complication detail: with diabetic retinopathy Assessment/Plan 1. Small intestinal obstruction, secondary to a band of adhesions s/p exploratory laparotomy, lysis of adhesions, release of intestinal obstruction with post-op ileus resolved 2. Chronic diastolic failure with underlying moderate - severe MR, moderate AR, TR 3. CAD, angina pectoris 4. Persistent atrial fibrillation [id number] on NOAC 5. HTN/HCVD 6. Type 2 DM 7. Hyperlipidemia 8. Acute on CKD due to hemodynamic alterations resolved 9. Lactic acidosis and leukocytosis resolved PLAN: 1. Full diet as tolerated, PT->SNF 2. Resume Diovan 80 mg qd and Lopressor 25 mg bid as hemodynamics tolerate 3. Continue full-dose Xarelto 20 qd with recovery of renal fxn, f/u Hgb, completed empiric abx course 4. Mitral and tricuspid valve repair/replacement postponed until recovery from this admission 5. Await SNF placement
--- NOTE | 2017-09-15 10:59 | PN ---
Progress Note, Physician Chief Complaint: Feels improved tolerating PO History of Present Illness: 81 year old male with significant medical hx of CAD, MS, CHF, AFib (on Xarelto) HTN, HLD, DM, and CKD who is presenting to the ED with vomiting on Monday. admitted with SBO on 09/03/2017 s/p exploratory Laprotomy - Current Medication List Current Medications: Active Medications Insulin Aspart (Novolog Vial Sliding Scale -) 1 vial SQ Q6HPO [facility] PRN Reason: Protocol Last Admin: 09/15/17 06:19 Dose: Not Given Metoprolol Tartrate (Lopressor -) 25 mg PO BID [facility] Last Admin: 09/14/17 21:48 Dose: Not Given Pantoprazole Sodium (Protonix Iv) 40 mg IVPUSH DAILY [facility] Last Admin: 09/14/17 09:45 Dose: 40 mg Rivaroxaban (Xarelto -) 20 mg PO DAILY@1800 [facility] Last Admin: 09/14/17 17:40 Dose: 20 mg - Objective Vital Signs: Vital Signs Temperature 98.7 F 09/15/17 06:00 Pulse Rate 91 H 09/15/17 06:00 Respiratory Rate 18 09/15/17 06:00 Blood Pressure 104/54 09/15/17 06:00 O2 Sat by Pulse Oximetry (%) 96 09/15/17 06:00 Elderly man sick looking, not in distress, tolerating PO HEENT: Mm dry, mild anemia, PERRLA NECK: No JVD No Bruit CHEST: Basal Crepts CVS: S1S2 Irr SM in AA ABD: s/p Laprotomy mild tenderness Bs + EXT: Raz afeet, + HEEL BREASTER: Aox3 non focal Labs: CBC, BMP 09/13/17 06:35 09/13/17 06:35 INR, PTT INR 2.04 (0.82-1.09) H 09/13/17 06:35 Problem List - Problems (1) Pneumatosis intestinalis of small intestine Assessment/Plan: DUe to SBO s/p Exploratory laprotomy on IV abx Code(s): K63.89 - OTHER SPECIFIED DISEASES OF INTESTINE (2) Small bowel obstruction Assessment/Plan: S/P Expl;oratory laprotomy and adhesion lysis , post Op care as per surgery consult Code(s): K56.609 - UNSP INTESTNL OBST, UNSP TO PARTIAL VERSUS COMPLETE OBST (3) CKD (chronic kidney disease) stage 3, GFR 30-59 ml/min Assessment/Plan: Renal functions are improving Code(s): N18.3 - CHRONIC KIDNEY DISEASE, STAGE 3 (MODERATE) (4) [id number] kidney injury Assessment/Plan: Improving on hydration Code(s): N17.9 - ACUTE KIDNEY FAILURE, UNSPECIFIED; N18.9 - CHRONIC KIDNEY DISEASE, UNSPECIFIED Qualifiers: Chronic kidney disease stage: unspecified stage (5) Tricuspid valve regurgitation Assessment/Plan: Schedule for repair as out patient Code(s): I07.1 - RHEUMATIC TRICUSPID INSUFFICIENCY Qualifiers: Cardiac valve disease etiology: nonrheumatic Qualified Code(s): I36.1 - Nonrheumatic tricuspid (valve) insufficiency (6) Moderate to severe mitral regurgitation Assessment/Plan: Schedule for surgery as out patient Code(s): I34.0 - NONRHEUMATIC MITRAL (VALVE) INSUFFICIENCY (7) T2DM (type 2 diabetes mellitus) Assessment/Plan: On Correction dose insulin opttimize Glycemic control Code(s): E11.9 - TYPE 2 DIABETES MELLITUS WITHOUT COMPLICATIONS Qualifiers: Diabetes mellitus complication detail: with diabetic retinopathy (8) Persistent atrial fibrillation Assessment/Plan: On rate control off Ac, cont current management as per Cardiology consult. Code(s): I48.1 - PERSISTENT ATRIAL FIBRILLATION (9) Status post exploratory laparotomy Code(s): Z98.890 - OTHER SPECIFIED POSTPROCEDURAL STATES
[2017-09-15] MEDS: METOPROLOL TARTRATE 25 MG TABLET (FP) PO SCH ×2 (11:52→21:12)
--- NOTE | 2017-09-15 18:55 | PN ---
Progress Note (short form) - Note Progress Note: NEUROLOGY FOLLOW-UP: Pt is much more awake, alert. Feels stronger and was OOB ambulating a few steps. Denies pain, dysphagia but still has decreased appetite. Labs showed sl elevation of Ammonia levels. EXAM: O x 3. Somewhat hard of hearing. CN II-XII normal Elevates arms and legs without drift. Normal reflexes. Gait deferred. IMP: Much improved. Normal cognition. SUGGEST: Improving toxic-metabolic encephalopathy. Gradually increase activity/ambulation with PT. Thank you very much, Reinaldo Quinones MD
[2017-09-15] MEDS: RIVAROXABAN 20 MG TABLET PO SCH (19:02)
--- NOTE | 2017-09-15 20:33 | DS ---
Physical Examination Vital Signs: Vital Signs Temperature 98.6 F 09/15/17 18:00 Pulse Rate 75 09/15/17 18:00 Respiratory Rate 18 09/15/17 18:00 Blood Pressure 112/57 09/15/17 18:00 O2 Sat by Pulse Oximetry (%) 96 09/15/17 10:00 Elderly man sick looking, not in distress, tolerating PO HEENT: Mm dry, mild anemia, PERRLA NECK: No JVD No Bruit CHEST: Basal Crepts CVS: S1S2 Irr SM ABD: s/p Laprotomy, vishnu removed, mild tenderness Bs + EXT: Raz afeet, + INSPECTOR OPTICAL INSTRUMENT: Aox3 non focal Labs: CBC, BMP 09/13/17 06:35 09/13/17 06:35 Discharge Summary Reason For Visit: SEPSIS, ABDOMINAL PAIN Current Active Problems Abdominal pain (Acute) Kfkef-ri-tenopuq kidney injury (Acute) Lactic acidosis (Acute) Melena (Acute) Pneumatosis intestinalis of small intestine (Acute) Sepsis (Acute) Small bowel obstruction (Acute) Status post exploratory laparotomy (Acute) Tricuspid valve regurgitation (Acute) Hospital Course: 81 year old male with significant medical hx of CAD, MS, CHF, AFib (on Xarelto) HTN, HLD, DM, and CKD who is presenting to the ED with vomiting on Monday. admitted with SBO on 09/03/2017 s/p exploratory Laprotomy, developed melena and anemia now on AC H/H stable after transfusion, off Diovon will optimze once able to tolerate - Current Medication List Current Medications: Active Medications Insulin Aspart (Novolog Vial Sliding Scale -) 1 vial SQ Q6HPO [facility] PRN Reason: Protocol Last Admin: 09/15/17 06:19 Dose: Not Given Metoprolol Tartrate (Lopressor -) 25 mg PO BID [facility] Last Admin: 09/14/17 21:48 Dose: Not Given Pantoprazole Sodium (Protonix Iv) 40 mg IVPUSH DAILY [facility] Last Admin: 09/14/17 09:45 Dose: 40 mg Rivaroxaban (Xarelto -) 20 mg PO DAILY@1800 [facility] Last Admin: 09/14/17 17:40 Dose: 20 mg Problem List - Problems (1) Pneumatosis intestinalis of small intestine Assessment/Plan: DUe to SBO s/p Exploratory laprotomy on IV abx Code(s): K63.89 - OTHER SPECIFIED DISEASES OF INTESTINE (2) Small bowel obstruction Assessment/Plan: S/P Expl;oratory laprotomy and adhesion lysis , post Op care as per surgery consult Code(s): K56.609 - UNSP INTESTNL OBST, UNSP TO PARTIAL VERSUS COMPLETE OBST (3) CKD (chronic kidney disease) stage 3, GFR 30-59 ml/min Assessment/Plan: Renal functions are improving Code(s): N18.3 - CHRONIC KIDNEY DISEASE, STAGE 3 (MODERATE) (4) Mpoge-po-siiooma kidney injury Assessment/Plan: Improving on hydration Code(s): N17.9 - ACUTE KIDNEY FAILURE, UNSPECIFIED; N18.9 - CHRONIC KIDNEY DISEASE, UNSPECIFIED Qualifiers: Chronic kidney disease stage: unspecified stage (5) Tricuspid valve regurgitation Assessment/Plan: Schedule for repair as out patient Code(s): I07.1 - RHEUMATIC TRICUSPID INSUFFICIENCY Qualifiers: Cardiac valve disease etiology: nonrheumatic Qualified Code(s): I36.1 - Nonrheumatic tricuspid (valve) insufficiency (6) Moderate to severe mitral regurgitation Assessment/Plan: Schedule for surgery as out patient Code(s): I34.0 - NONRHEUMATIC MITRAL (VALVE) INSUFFICIENCY (7) T2DM (type 2 diabetes mellitus) Assessment/Plan: On Correction dose insulin opttimize Glycemic control Code(s): E11.9 - TYPE 2 DIABETES MELLITUS WITHOUT COMPLICATIONS Qualifiers: Diabetes mellitus complication detail: with diabetic retinopathy (8) Persistent atrial fibrillation Assessment/Plan: On rate control off Ac, cont current management as per Cardiology consult. Code(s): I48.1 - PERSISTENT ATRIAL FIBRILLATION (9) Status post exploratory laparotomy Code(s): Z98.890 - OTHER SPECIFIED POSTPROCEDURAL STATES Condition: Fair - Instructions Diet, Activity, Other Instructions: low salt low cholestrol Optimize B Blockers and Diovon as tolerates Referrals: Riri Bishop MD [Primary Care Provider] - 2 Weeks Disposition: [facility] - Home Medications Comprehensive Discharge Medication List: Ambulatory Orders Atorvastatin Ca [Lipitor] 10 mg PO HS tablet 11/30/16 Furosemide [Lasix -] 20 mg PO DAILY tablet 11/30/16 Metoprolol Tartrate [Lopressor -] 50 mg PO BID tablet 11/30/16 Rivaroxaban [Xarelto -] 20 mg PO DAILY tablet 11/30/16 Spironolactone [Aldactone -] 25 mg PO DAILY #0 tablet 11/30/16 Valsartan [Diovan] 80 mg PO DAILY tablet 11/30/16 Insulin Sliding Scale [Novolog Vial Sliding Scale -] 1 vial SQ Q6HPO units 09/03 Metoprolol Tartrate [Lopressor -] 25 mg PO BID tablet 09/15/17 Pantoprazole Sodium [Protonix -] 40 mg PO DAILY tablet.ec 09/15/17 Rivaroxaban [Xarelto -] 20 mg PO DAILY@1800 tablet 09/15/17
[2017-09-16] MEDS: INSULIN SLIDING SCALE (NOVOLOG) 1 VIAL SQ SCH (05:58)
[2017-09-16 07:08] LABS: BASO % 0.5 % (0-2.0); EOS % 1.1 % (0-4.5); HEMATOCRIT 30.3 % (35.4-49); HEMOGLOBIN 9.9 GM/dL (11.7-16.9); LYMPH % 7.6 % (8-40); MCH 26.8 pg (25.7-33.7); MCHC 32.6 g/dl (32.0-35.9); MEAN CELL VOLUME 82.3 fl (80-96); MEAN PLT VOLUME 7.9 fl (7.5-11.1); MONO % 4.5 % (3.8-10.2); NEUT % 86.3 % (42.8-82.8); PLATELET COUNT 182 K/MM3 (134-434); RBC 3.68 M/mm3 (4.00-5.60); RDW 20.7 % (11.9-15.9); WHITE BLOOD COUNT 8.2 K/mm3 (4.0-10.0)
[2017-09-16 07:36] LABS: ALBUMIN 2.3 g/dl (3.4-5.0); ALK PHOS 68 U/L (45-117); ANION GAP 6 (8-16); BILIRUBIN,TOTAL 0.5 mg/dL (0.2-1.0); BLOOD UREA NITROGEN 13 mg/dL (7-18); CALCIUM 7.3 mg/dL (8.5-10.1); CHLORIDE 108 mmol/L (98-107); CO2 31 mmol/L (21-32); CREATININE 0.9 mg/dL (0.7-1.3); GLUCOSE,RANDOM 105 mg/dL (74-106); POTASSIUM 4.4 mmol/L (3.5-5.1); SGOT/AST 27 U/L (15-37); SGPT/ALT 35 U/L (12-78); SODIUM 145 mmol/L (136-145); TOT PROT 4.6 g/dl (6.4-8.2)
[2017-09-16 07:39] VITALS: TEMP 98.5
--- NOTE | 2017-09-16 08:41 | PN ---
Progress Note, Physician Chief Complaint: No new complaints History of Present Illness: Awaiting to transfer to [facility] - Current Medication List Current Medications: Active Medications Insulin Aspart (Novolog Vial Sliding Scale -) 1 vial SQ Q6HPO [facility] PRN Reason: Protocol Last Admin: 09/16/17 05:58 Dose: Not Given Metoprolol Tartrate (Lopressor -) 25 mg PO BID [facility] Last Admin: 09/15/17 21:12 Dose: 25 mg Pantoprazole Sodium (Protonix -) 40 mg PO DAILY [facility] Rivaroxaban (Xarelto -) 20 mg PO DAILY@1800 [facility] Last Admin: 09/15/17 19:02 Dose: 20 mg - Objective Vital Signs: Vital Signs Temperature 98.5 F 09/16/17 06:00 Pulse Rate 84 09/16/17 06:00 Respiratory Rate 16 09/16/17 06:00 Blood Pressure 92/58 09/16/17 06:00 O2 Sat by Pulse Oximetry (%) 94 L 09/15/17 22:00 Constitutional: Yes: No Distress Eyes: Yes: WNL HENT: Yes: WNL Neck: Yes: WNL Cardiovascular: Yes: WNL Respiratory: Yes: Regular Gastrointestinal: Yes: WNL ...Rectal Exam: Yes: Deferred Genitourinary: Yes: WNL Edema: No Integumentary: Yes: WNL Neurological: Yes: Alert Labs: CBC, BMP 09/16/17 06:50 09/16/17 06:50 INR, PTT INR 2.04 (0.82-1.09) H 09/13/17 06:35 Assessment/Plan Will follow at [facility]
[2017-09-16] MEDS ORDERED: PANTOPRAZOLE 40 MG TABLET (FP) PO SCH (10:00)
[2017-09-16] MEDS: METOPROLOL TARTRATE 25 MG TABLET (FP) PO SCH (10:03)
[2017-09-16 10:53] VITALS: BP 99/58; PULSE 63
--- NOTE | 2017-09-16 13:19 | PN ---
Progress Note (short form) - Note Progress Note: Chief Complaint: Events noted, notes reviewed, seen prior to D/C to sub-acute care facility, denies any chest pain or dyspnea History of Present Illness: Seen and examined on telemetry. Events noted, notes reviewed, seen prior to D/C to sub-acute care facility, denies any chest pain or dyspnea, patent's at the bedside Echocardiography dated 09/07/2017 revealed normal LV systolic function, mild MR ? , technically sub-optimal study - Current Medication List Current Medications Insulin Aspart (Novolog Vial Sliding Scale -) 1 vial SQ Q6HPO [facility] PRN Reason: Protocol Last Admin: 09/16/17 05:58 Dose: Not Given Metoprolol Tartrate (Lopressor -) 25 mg PO BID [facility] Last Admin: 09/16/17 10:03 Dose: 25 mg Pantoprazole Sodium (Protonix -) 40 mg PO DAILY [facility] Last Admin: 09/16/17 10:03 Dose: 40 mg Rivaroxaban (Xarelto -) 20 mg PO DAILY@1800 [facility] Last Admin: 09/15/17 19:02 Dose: 20 mg Review Of Systems: - Objective Vital Signs: Last Vital Signs Temp Pulse Resp BP Pulse Ox 98.5 F 63 18 99/58 94 L 09/16/17 10:00 09/16/17 10:00 09/16/17 10:00 09/16/17 10:00 09/16/17 10:00 Intake & Output 09/13/17 09/14/17 09/15/17 09/16/17 23:59 23:59 23:59 23:59 Intake Total 890 880 860 100 Balance 890 880 860 100 Weight 208 lb 6.4 oz 206 lb 207 lb 3.2 oz 210 lb 6.4 oz Constitutional: No Distress, Calm, Thin Neck: Supple Negative JVD No Bruit Cardiovascular: S1 S2 Irregularly Irregular Respiratory: Diminished Breath Sounds at the Bases Gastrointestinal: Soft Benign Normal Bowel Sounds Ext: Trace Edema Labs: CBC, BMP 09/16/17 06:50 09/16/17 06:50 Assessment/Plan ASSESSMENT: 1. Small bowel/intestinal obstruction, secondary to a band of adhesions post exploratory laparotomy, lysis of adhesions, release of intestinal obstruction, post-op ileus resolved 2. Diastolic LV dysfunction with chronic class I-II NYHA classification LV failure, compensated/euvolemic 3. Moderate-severe MR for future operative intervention 4. Moderate AR 5. Moderate TR 6. CAD angina pectoris 7. Persistent atrial fibrillation [id number] score of 6 on NOAC's/Xarelto 8. HTN history currently hypotensive/normotensive 9. DM 10. Hyperlipidemia 11. Anemia 12. Acute on CKD due to hemodynamic alterations, resolved 13. Lactic acidosis, resolved PLAN: 1. Consider resumption of Diovan therapy once hemodynamic stability is achieved/ maintained, can be done as outpatient 2. Continue Lopressor hemodynamics permitting 3. Continue Xarelto 4. Mitral and tricuspid valve repair/replacement postponed until recovery from this admission 5. To be D/C to sub-acute care and F/U with auditing control clerk at [facility] Grey Figueroa MD
== END 2017-09-16 13:28 | DRG 853 ==
LOC: JER 14:27 → JERBED 19:54 → UNDOADMIN 20:27 → JERBED 20:27 → JICU 09-04 00:32 → J4W 09-12 20:30
PROVIDERS: ADMIT Internal Medicine; ATTEND Internal Medicine
PROC: 0DN80ZZ Release Small Intestine, Open Approach (ICD-10-PCS; principal; 2017-09-04)
PROC: 0D9670Z Drainage of Stomach with Drainage Device, Via Natural or Artificial Opening (ICD-10-PCS; 2017-09-04)
PROC: 30233N1 Transfusion of Nonautologous Red Blood Cells into Peripheral Vein, Percutaneous Approach (ICD-10-PCS; 2017-09-06)
DX: A41.9 Sepsis, unspecified organism (principal); I50.33 Acute on chronic diastolic (congestive) heart failure; G92 Toxic encephalopathy; I13.0 Hypertensive heart and chronic kidney disease with heart failure and stage 1 through stage 4 chronic kidney disease, or unspecified chronic kidney disease; E87.2 Acidosis; D68.9 Coagulation defect, unspecified; N17.9 Acute kidney failure, unspecified; I48.1 Persistent atrial fibrillation; K92.2 Gastrointestinal hemorrhage, unspecified; K91.30 Postprocedural intestinal obstruction, unspecified as to partial versus complete; Z79.01 Long term (current) use of anticoagulants; I25.10 Atherosclerotic heart disease of native coronary artery without angina pectoris; E11.22 Type 2 diabetes mellitus with diabetic chronic kidney disease; N18.9 Chronic kidney disease, unspecified; I27.20 Pulmonary hypertension, unspecified; I34.0 Nonrheumatic mitral (valve) insufficiency; K63.89 Other specified diseases of intestine; M10.9 Gout, unspecified; E86.0 Dehydration; R09.02 Hypoxemia; I35.1 Nonrheumatic aortic (valve) insufficiency; E83.39 Other disorders of phosphorus metabolism; E87.6 Hypokalemia; I36.1 Nonrheumatic tricuspid (valve) insufficiency; D64.9 Anemia, unspecified; K66.0 Peritoneal adhesions (postprocedural) (postinfection); K59.00 Constipation, unspecified; Y83.8 Other surgical procedures as the cause of abnormal reaction of the patient, or of later complication, without mention of misadventure at the time of the procedure
CPT/HCPCS: 36415; 36430; 36600; 71045-TC-FY; 71046-TC-FY; 74176-TC; 74190-TC-FY; 80048; 80053; 81003; 82140; 82272; 82550; 82553; 82607; 82803; 82962; 83036; 83605; 83690; 83735; 83880; 84100; 84439; 84443; 84484; 85025; 85027; 85610; 85730; 86850; 86900; 86901; 86922; 87040; 87086; 93005; 93010; 93306-TC; 94640; 94760; 97116-GP; 97162-GP; 99285-25; J1644; P9038; P9058

== ENCOUNTER 2024-01-07 14:46 | Inpatient (IN) | payer OTHER, MEDICARE ==
[2024-01-07 15:49] LABS: VENOUS BASE EXCESS 2.7 mmol/L (-2-2); VENOUS O2 SATURATION 49.9 % (70-80); VENOUS PCO2 45.3 mmHg (38-52); VENOUS PH 7.409 (7.310-7.410)
[2024-01-07 15:51] LABS: BASO % 0.4 % (0-2.0); HEMATOCRIT 43.3 % (35.4-49); HEMOGLOBIN 13.6 GM/dL (11.7-16.9); LYMPH % 4.3 % (8-40); MCHC 31.5 g/dl (32.0-35.9); MEAN CELL VOLUME 72.9 fl (80-96); MEAN PLT VOLUME 7.9 fl (7.5-11.1); NEUT % 88.3 % (42.8-82.8); PLATELET COUNT 80 10^3/uL (134-434); RBC 5.94 M/mm3 (4.00-5.60); RDW 17.5 % (11.9-15.9); WHITE BLOOD COUNT 7.6 K/mm3 (4.0-10.0)
[2024-01-07 15:57] LABS: INR 1.57 (0.83-1.09); PROTHROMBIN TIME (PATIENT) 17.5 SEC (9.7-13.0)
[2024-01-07 15:59] LABS: ACTIVATED PTT 37.6 SECONDS (25.2-36.5)
[2024-01-07 16:10] LABS: POTASSIUM 4.3 mmol/L (3.5-5.1)
[2024-01-07 16:12] LABS: CALCIUM 8.4 mg/dL (8.5-10.1)
[2024-01-07 16:13] LABS: ALBUMIN 3.5 g/dl (3.4-5.0); BLOOD UREA NITROGEN 23.4 mg/dL (7-18)
[2024-01-07 16:16] LABS: CREATININE 1.4 mg/dL (0.55-1.3)
[2024-01-07] MEDS ORDERED: ACETAMINOPHEN INJECTION 100 ML IVPB ONE (16:56)
[2024-01-07] MEDS: ACETAMINOPHEN 1000 MG/100 ML BAG IVPB ONE (16:57)
[2024-01-07] MEDS: REMDESIVIR 200 MG in SODIUM CHLORIDE 250 ML IVPB ONE (19:46)
[2024-01-07] MEDS ORDERED: ATORVASTATIN CA 10 MG TABLET (FP) ONE (21:21)
[2024-01-07] MEDS: ATORVASTATIN CA 10 MG TABLET (FP) PO SCH (21:46)
[2024-01-07] MEDS: INSULIN ASPART SLIDING SCALE (NOVOLOG) 1 VIAL SQ SCH (21:48)
[2024-01-07 23:16] LABS: PH,URINE 5.5 (5.0-8.0); URINE APPEARANCE CLEAR; URINE BILIRUBIN NEGATIVE (NEGATIVE); URINE COLOR YELLOW; URINE GLUCOSE (UA) 3+ (NEGATIVE); URINE KETONE NEGATIVE (NEGATIVE); URINE LEUK ESTERASE NEGATIVE (NEGATIVE); URINE NITRITE NEGATIVE (NEGATIVE); URINE PROTEIN NEGATIVE (NEGATIVE)
[2024-01-08 07:07] LABS: BASO % 0.4 % (0-2.0); HEMATOCRIT 44.9 % (35.4-49); HEMOGLOBIN 14.3 GM/dL (11.7-16.9); LYMPH % 3.2 % (8-40); MCH 23.5 pg (25.7-33.7); MCHC 31.9 g/dl (32.0-35.9); MEAN CELL VOLUME 73.7 fl (80-96); MEAN PLT VOLUME 8.1 fl (7.5-11.1); MONO % 6.2 % (3.8-10.2); NEUT % 90.2 % (42.8-82.8); PLATELET COUNT 71 10^3/uL (134-434); RBC 6.09 M/mm3 (4.00-5.60); RDW 17.9 % (11.9-15.9); WHITE BLOOD COUNT 9.8 K/mm3 (4.0-10.0)
[2024-01-08 07:22] LABS: POTASSIUM 4.5 mmol/L (3.5-5.1)
[2024-01-08 07:27] LABS: ALBUMIN 3.4 g/dl (3.4-5.0)
[2024-01-08 07:30] LABS: BILIRUBIN,DIRECT 1.1 mg/dL (0.0-0.2)
[2024-01-08 07:31] LABS: BILIRUBIN,TOTAL 2.5 mg/dL (0.2-1); BLOOD UREA NITROGEN 21.4 mg/dL (7-18); CALCIUM 8.4 mg/dL (8.5-10.1)
[2024-01-08 07:35] LABS: CREATININE 1.1 mg/dL (0.55-1.3)
[2024-01-08] MEDS ORDERED: TAMSULOSIN HCL 0.4 MG CAP ONE (08:18)
[2024-01-08] MEDS: TAMSULOSIN HCL 0.4 MG CAP PO SCH (08:25)
[2024-01-08] MEDS ORDERED: ACETAMINOPHEN 500 MG TABLET (FP) ONE (12:28)
[2024-01-08] MEDS: COLCHICINE 0.6 MG TAB PO SCH (12:35)
[2024-01-08] MEDS: ALLOPURINOL 100 MG TABLET (FP) PO SCH (12:35)
[2024-01-08] MEDS: FUROSEMIDE 20 MG TABLET (FP) PO SCH (12:35)
[2024-01-08] MEDS: CEFTRIAXONE 1 GM in DEXTROSE 5%-WATER - 50 ML IVPB SCH (16:09)
[2024-01-08] MEDS: RIVAROXABAN 20 MG TABLET PO SCH (18:07)
[2024-01-08] MEDS: REMDESIVIR 100 MG in SODIUM CHLORIDE 250 ML IVPB ONE (19:56)
[2024-01-09 07:50] LABS: BASO % 0.3 % (0-2.0); EOS % 0.7 % (0-4.5); HEMATOCRIT 41.2 % (35.4-49); LYMPH % 5.4 % (8-40); MCH 23.2 pg (25.7-33.7); MCHC 31.5 g/dl (32.0-35.9); MEAN CELL VOLUME 73.6 fl (80-96); MONO % 10.9 % (3.8-10.2); NEUT % 82.7 % (42.8-82.8); PLATELET COUNT 82 10^3/uL (134-434); RBC 5.59 M/mm3 (4.00-5.60); RDW 17.5 % (11.9-15.9); WHITE BLOOD COUNT 6.6 K/mm3 (4.0-10.0)
[2024-01-09 07:53] LABS: POTASSIUM 4.3 mmol/L (3.5-5.1)
[2024-01-09 08:05] LABS: CALCIUM 7.7 mg/dL (8.5-10.1)
[2024-01-09 08:06] LABS: ALBUMIN 2.8 g/dl (3.4-5.0); BLOOD UREA NITROGEN 27.7 mg/dL (7-18); MAGNESIUM 2.5 mg/dL (1.8-2.4)
[2024-01-09 08:10] LABS: BILIRUBIN,TOTAL 1.6 mg/dL (0.2-1)
[2024-01-09 08:11] LABS: TOT PROT 5.3 g/dl (6.4-8.2)
[2024-01-09 09:30] LABS: BILIRUBIN,DIRECT 0.8 mg/dL (0.0-0.2)
[2024-01-09] MEDS ORDERED: ALBUTEROL SO4 2.5/IPRATROPIUM 0.5 INH SOL 3 ML VIAL.NEB. NEB PRN (14:26)
[2024-01-09] MEDS: ACETAMINOPHEN 500 MG TABLET (FP) PO PRN (20:00)
[2024-01-09] MEDS: REMDESIVIR 100 MG in SODIUM CHLORIDE 250 ML IVPB ONE (20:15)
[2024-01-10 07:23] LABS: BASO % 0.6 % (0-2.0); EOS % 2.1 % (0-4.5); HEMATOCRIT 42.9 % (35.4-49); HEMOGLOBIN 13.7 GM/dL (11.7-16.9); LYMPH % 6.1 % (8-40); MCH 23.2 pg (25.7-33.7); MEAN CELL VOLUME 72.5 fl (80-96); MEAN PLT VOLUME 8.5 fl (7.5-11.1); MONO % 12.7 % (3.8-10.2); NEUT % 78.5 % (42.8-82.8); PLATELET COUNT 100 10^3/uL (134-434); RBC 5.92 M/mm3 (4.00-5.60); RDW 17.1 % (11.9-15.9); WHITE BLOOD COUNT 5.8 K/mm3 (4.0-10.0)
[2024-01-10 07:49] LABS: POTASSIUM 4.1 mmol/L (3.5-5.1)
[2024-01-10 07:56] LABS: ALBUMIN 2.8 g/dl (3.4-5.0); BLOOD UREA NITROGEN 23.8 mg/dL (7-18); CALCIUM 8.1 mg/dL (8.5-10.1); MAGNESIUM 2.6 mg/dL (1.8-2.4)
[2024-01-10 07:59] LABS: CREATININE 0.8 mg/dL (0.55-1.3)
[2024-01-10 08:01] LABS: TOT PROT 5.2 g/dl (6.4-8.2)
[2024-01-10 08:02] LABS: BILIRUBIN,TOTAL 1.4 mg/dL (0.2-1)
[2024-01-10] MEDS: BENZONATATE 200 MG CAPSULE PO PRN (10:45)
[2024-01-10] MEDS ORDERED: ACETAMINOPHEN 500 MG TABLET (FP) PO PRN (14:28)
[2024-01-11 06:42] LABS: BASO % 0.8 % (0-2.0); EOS % 2.8 % (0-4.5); HEMATOCRIT 41.9 % (35.4-49); HEMOGLOBIN 13.4 GM/dL (11.7-16.9); LYMPH % 7.7 % (8-40); MCH 23.2 pg (25.7-33.7); MCHC 32.1 g/dl (32.0-35.9); MEAN CELL VOLUME 72.3 fl (80-96); MEAN PLT VOLUME 8.2 fl (7.5-11.1); MONO % 12.3 % (3.8-10.2); NEUT % 76.4 % (42.8-82.8); PLATELET COUNT 116 10^3/uL (134-434); RBC 5.79 M/mm3 (4.00-5.60); RDW 17.2 % (11.9-15.9); WHITE BLOOD COUNT 5.2 K/mm3 (4.0-10.0)
[2024-01-11 06:55] LABS: POTASSIUM 3.9 mmol/L (3.5-5.1)
[2024-01-11 06:58] LABS: CALCIUM 7.7 mg/dL (8.5-10.1)
[2024-01-11 06:59] LABS: ALBUMIN 2.6 g/dl (3.4-5.0); BLOOD UREA NITROGEN 19.6 mg/dL (7-18); MAGNESIUM 2.1 mg/dL (1.8-2.4)
[2024-01-11 07:02] LABS: CREATININE 0.7 mg/dL (0.55-1.3); PHOSPHOROUS 3.2 mg/dL (2.5-4.9)
[2024-01-11 07:03] LABS: BILIRUBIN,TOTAL 1.4 mg/dL (0.2-1)
[2024-01-11 07:04] LABS: TOT PROT 5.1 g/dl (6.4-8.2)
[2024-01-11] MEDS: REMDESIVIR 100 MG in SODIUM CHLORIDE 270 ML IVPB ONE (09:00)
[2024-01-12] MEDS: BENZONATATE 200 MG CAPSULE PO SCH (06:04)
[2024-01-12 08:20] LABS: HEMATOCRIT 43.1 % (35.4-49); HEMOGLOBIN 13.8 GM/dL (11.7-16.9); MCH 23.3 pg (25.7-33.7); MCHC 31.9 g/dl (32.0-35.9); MEAN CELL VOLUME 73.1 fl (80-96); MEAN PLT VOLUME 7.9 fl (7.5-11.1); PLATELET COUNT 126 10^3/uL (134-434); RDW 16.7 % (11.9-15.9); WHITE BLOOD COUNT 5.6 K/mm3 (4.0-10.0)
[2024-01-12] MEDS: DEXAMETHASONE SOD PHOSPHATE 4 MG/1 ML VIAL IVPUSH SCH (08:45)
[2024-01-12 09:26] LABS: POTASSIUM 4.6 mmol/L (3.5-5.1)
[2024-01-12 09:30] LABS: ALBUMIN 2.6 g/dl (3.4-5.0); BLOOD UREA NITROGEN 19.2 mg/dL (7-18); CALCIUM 7.6 mg/dL (8.5-10.1)
[2024-01-12 09:32] LABS: CREATININE 0.8 mg/dL (0.55-1.3)
[2024-01-12 09:33] LABS: BILIRUBIN,TOTAL 1.2 mg/dL (0.2-1); PHOSPHOROUS 3.4 mg/dL (2.5-4.9); TOT PROT 5.2 g/dl (6.4-8.2)
[2024-01-12] MEDS: REMDESIVIR 100 MG in SODIUM CHLORIDE 250 ML IVPB ONE (10:54)
[2024-01-12] MEDS: DEXAMETHASONE 4 MG TABLET (FP) PO SCH (10:57)
[2024-01-12] MEDS: ARTIFICIAL TEARS OPHTHALMIC DROPS OU PRN (16:26)
[2024-01-12] MEDS: DEXAMETHASONE SOD PHOSPHATE 10 MG/1 ML VIAL IVPUSH SCH (19:12)
[2024-01-13 09:03] LABS: HEMATOCRIT 41.2 % (35.4-49); HEMOGLOBIN 13.5 GM/dL (11.7-16.9); MCH 23.5 pg (25.7-33.7); MCHC 32.7 g/dl (32.0-35.9); MEAN CELL VOLUME 71.8 fl (80-96); MEAN PLT VOLUME 8.1 fl (7.5-11.1); PLATELET COUNT 133 10^3/uL (134-434); RBC 5.73 M/mm3 (4.00-5.60); RDW 16.9 % (11.9-15.9); WHITE BLOOD COUNT 5.3 K/mm3 (4.0-10.0)
[2024-01-13 09:26] LABS: POTASSIUM 4.3 mmol/L (3.5-5.1)
[2024-01-13 09:35] LABS: BLOOD UREA NITROGEN 18.3 mg/dL (7-18); CALCIUM 7.9 mg/dL (8.5-10.1)
[2024-01-13 09:36] LABS: ALBUMIN 2.6 g/dl (3.4-5.0); MAGNESIUM 2.1 mg/dL (1.8-2.4)
[2024-01-13 09:39] LABS: CREATININE 0.8 mg/dL (0.55-1.3); PHOSPHOROUS 3.3 mg/dL (2.5-4.9)
[2024-01-13 09:40] LABS: BILIRUBIN,TOTAL 1.5 mg/dL (0.2-1); TOT PROT 5.2 g/dl (6.4-8.2)
[2024-01-13] MEDS: REMDESIVIR 100 MG in SODIUM CHLORIDE 250 ML IVPB ONE (11:26)
[2024-01-14 08:20] LABS: POTASSIUM 4.2 mmol/L (3.5-5.1)
[2024-01-14 08:21] LABS: CALCIUM 8.6 mg/dL (8.5-10.1)
[2024-01-14 08:22] LABS: ALBUMIN 2.9 g/dl (3.4-5.0); BLOOD UREA NITROGEN 22.4 mg/dL (7-18)
[2024-01-14 08:25] LABS: CREATININE 0.9 mg/dL (0.55-1.3)
[2024-01-14 08:27] LABS: BILIRUBIN,TOTAL 1.1 mg/dL (0.2-1); TOT PROT 5.9 g/dl (6.4-8.2)
[2024-01-14] MEDS: FUROSEMIDE 40 MG/4 ML INJECTABLE VIAL IVPUSH ONE (10:06)
[2024-01-14 14:03] VITALS: BMI 27.6
[2024-01-15 08:25] LABS: POTASSIUM 4.1 mmol/L (3.5-5.1)
[2024-01-15 08:27] LABS: CALCIUM 8.8 mg/dL (8.5-10.1)
[2024-01-15 08:28] LABS: ALBUMIN 3.2 g/dl (3.4-5.0); BLOOD UREA NITROGEN 26.3 mg/dL (7-18); MAGNESIUM 2.5 mg/dL (1.8-2.4)
[2024-01-15 08:31] LABS: CREATININE 1.2 mg/dL (0.55-1.3); PHOSPHOROUS 4.2 mg/dL (2.5-4.9)
[2024-01-15 08:32] LABS: BILIRUBIN,TOTAL 1.3 mg/dL (0.2-1)
[2024-01-15 08:37] LABS: HEMATOCRIT 43.1 % (35.4-49); MCH 23.3 pg (25.7-33.7); MCHC 32.4 g/dl (32.0-35.9); MEAN CELL VOLUME 71.9 fl (80-96); MEAN PLT VOLUME 7.4 fl (7.5-11.1); PLATELET COUNT 192 10^3/uL (134-434); RDW 16.7 % (11.9-15.9); WHITE BLOOD COUNT 11.4 K/mm3 (4.0-10.0)
[2024-01-15] MEDS ORDERED: SODIUM CHLORIDE NASAL SPRAY 44 ML BOTTLE NS PRN (14:24)
[2024-01-16] MEDS ORDERED: FUROSEMIDE 40 MG/4 ML INJECTABLE VIAL IVPUSH ONE (06:00)
[2024-01-16] MEDS: FUROSEMIDE 40 MG/4 ML INJECTABLE VIAL IVPUSH ONE (06:32)
[2024-01-16 08:05] LABS: POTASSIUM 4.3 mmol/L (3.5-5.1)
[2024-01-16 08:12] LABS: HEMATOCRIT 44.6 % (35.4-49); HEMOGLOBIN 14.4 GM/dL (11.7-16.9); MCH 23.4 pg (25.7-33.7); MCHC 32.3 g/dl (32.0-35.9); MEAN CELL VOLUME 72.3 fl (80-96); PLATELET COUNT 171 10^3/uL (134-434); RBC 6.17 M/mm3 (4.00-5.60); RDW 16.2 % (11.9-15.9); WHITE BLOOD COUNT 8.4 K/mm3 (4.0-10.0)
[2024-01-16 08:15] LABS: BLOOD UREA NITROGEN 26.5 mg/dL (7-18); CALCIUM 8.4 mg/dL (8.5-10.1); MAGNESIUM 2.3 mg/dL (1.8-2.4); PHOSPHOROUS 3.8 mg/dL (2.5-4.9)
[2024-01-16 08:16] LABS: BILIRUBIN,TOTAL 1.4 mg/dL (0.2-1); TOT PROT 5.7 g/dl (6.4-8.2)
[2024-01-16 14:22] VITALS: BP 114/63; PULSE 63; RESP 18; TEMP 98.6
== END 2024-01-16 16:22 | disposition home health service (06) | DRG 177 ==
LOC: JER 14:46 → OBSVTOIN 17:54 → JERBED 17:54 → J4S 01-08 15:17
PROVIDERS: ADMIT Internal Medicine; ATTEND Internal Medicine
PROC: XW033E5 Introduction of Remdesivir Anti-infective into Peripheral Vein, Percutaneous Approach, New Technology Group 5 (ICD-10-PCS; principal; 2024-01-07)
DX: U07.1 COVID-19 (principal); I50.33 Acute on chronic diastolic (congestive) heart failure; J12.82 Pneumonia due to coronavirus disease 2019; J96.01 Acute respiratory failure with hypoxia; I24.89 Other forms of acute ischemic heart disease; I13.0 Hypertensive heart and chronic kidney disease with heart failure and stage 1 through stage 4 chronic kidney disease, or unspecified chronic kidney disease; I42.8 Other cardiomyopathies; R50.9 Fever, unspecified; D35.01 Benign neoplasm of right adrenal gland; E04.1 Nontoxic single thyroid nodule; E86.0 Dehydration; M10.9 Gout, unspecified; N40.0 Benign prostatic hyperplasia without lower urinary tract symptoms; I48.91 Unspecified atrial fibrillation; F03.90 Unspecified dementia, unspecified severity, without behavioral disturbance, psychotic disturbance, mood disturbance, and anxiety; I27.20 Pulmonary hypertension, unspecified; E11.22 Type 2 diabetes mellitus with diabetic chronic kidney disease; N18.30 Chronic kidney disease, stage 3 unspecified; Z95.2 Presence of prosthetic heart valve; Z95.0 Presence of cardiac pacemaker
CPT/HCPCS: 0241U-QW; 36415; 71045-TC-FY; 71250-TC; 80048; 80053; 80076; 81003; 82248; 82550; 82553; 82728; 82803; 82962; 83036; 83605; 83735; 83880; 84100; 84439; 84443; 84484; 85025; 85027; 85610; 85730; 86140; 86850; 86900; 86901; 87040; 87086; 93005; 93010; 94761; 97116-GP; 97162-GP; 99291; J0131; J0248; J1100